=== PATIENT | male | born 1950 | race Caucasian/White ===

== ENCOUNTER 2020-04-27 10:09 | Inpatient (IN) | payer MEDICARE ==
[~2020-04-27] VITALS: Ht 182.9 cm; Wt 99.8 kg
[~2020-04-27 10:09] MED LIST: ALBU2.5V8 INH; AMLO5TAB4 PO; ATOR10TA PO; BLOOD PRESSURE; BRIM5DRO3 EACHEYE; FLUT1DIS IH; FLUT1DIS3 IH; LOSA1TAB25 PO; METH4TAB2 PO; MONT10TA49 PO; TEST200V3 IM; WARF-31 PO
[2020-04-27 11:02] LABS: BASO % 1 % (0-3); EOS % 0 % (0-3); HEMATOCRIT 42.4 % (39.0-53.0); HEMOGLOBIN 14.1 g/dL (13.0-17.5); LYMPH # 0.4 x10^3/uL (1.0-4.8); LYMPH % 11 % (24-48); MEAN CORPUSCULAR HEMOGLOBIN 30 pg (25-35); MEAN CORPUSCULAR HGB CONC 33 g/dL (31-37); MEAN CORPUSCULAR VOLUME 90 fL (79-100); MONO # 0.3 x10^3/uL (0.0-1.1); MONO % 8 % (0-9); NEUT # 3.1 x10^3/uL (1.8-7.7); NEUT % 81 % (31-73); PLATELET COUNT 171 x10^3/uL (140-400); RED CELL DISTRIBUTION WIDTH 15.6 % (11.5-14.5); WHITE BLOOD COUNT 3.9 x10^3/uL (4.0-11.0)
--- NOTE | 2020-04-27 11:09 | RAD ---
EXAM: Chest, single view. HISTORY: Shortness of air. COMPARISON: 06/22/2015 FINDINGS: A frontal view of the chest is obtained. There is diffuse mixed interstitial and alveolar i nfiltrate throughout both lungs. There may be partial consolidation of the left lower lobe. There is elevation of the right hemidiaphragm and interposition of colon superior to the liver, bladder which is a normal variant. There are suspected small pleural effusions. There is enlargement of the cardiac silhouette. There is no pneumothorax. IMPRESSION: 1. Multifocal interstitial and alveolar infiltrate with suspected partial left lower lobe consolidati on. 2. Small bilateral pleural effusions. 3. Chronic cardiac silhouette and elevation of the right hemidiaphragm. Electronically signed by: Mimi Brady MD (04/27/2020 11:07 AM) [id number]
--- NOTE | 2020-04-27 11:13 | PHYS DOC ---
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 Patient was exposed to a [id number] who had COVID-19 infection last week. He went to his doctor today, his oxygen saturation was 70% on room air in the clinic. Therefore he was brought here by his son for evaluation. Review of Systems: Review of Systems: Constitutional: Positive for fever or chills. [] Eyes: Denies change in visual acuity. [] HENT: Denies nasal congestion or sore throat. [] Respiratory: Positive for cough or shortness of breath. [] Cardiovascular: Denies chest pain or edema. [] GI: Denies abdominal pain, nausea, vomiting, bloody stools or diarrhea. [] : Denies dysuria. [] Musculoskeletal: Denies back pain or joint pain. [] Integument: Denies rash. [] Neurologic: Denies headache, focal weakness or sensory changes. [] Endocrine: Denies polyuria or polydipsia. [] Lymphatic: Denies swollen glands. [] Psychiatric: Denies depression or anxiety. [] Heart Score: Risk Factors: Risk Factors: DM, Current or recent (<one month) smoker, HTN, HLP, family history of CAD, obesity. Risk Scores: Score 0 - 3: 2.5% MACE over next 6 weeks - Discharge Home Score 4 - 6: 20.3% MACE over next 6 weeks - Admit for Clinical Observation Score 7 - 10: 72.7% MACE over next 6 weeks - Early Invasive Strategies Allergies: Allergies: Allergies Coded Allergies Type Severity Reaction Last Updated Verified Sulfa (Sulfonamide Antibiotics) Allergy Intermediate 08/15/14 Yes Physical Exam: PE: Constitutional: Well developed, well nourished, no acute distress, non-toxic appearance. [] HENT: Normocephalic, atraumatic, bilateral external ears normal, oropharynx moist, no oral exudates, nose normal. [] Eyes: PERRLA, EOMI, conjunctiva normal, no discharge. [] Neck: Normal range of motion, no tenderness, supple, no stridor. [] Cardiovascular:Heart rate regular rhythm, no murmur [] Lungs & Thorax: Bilateral breath soundsWITH CRACKLES AT LUNG BASES. No respiratory distress. Abdomen: Bowel sounds normal, soft, no tenderness, no masses, no pulsatile masses. [] Skin: Warm, dry, no erythema, no rash. [] Back: No tenderness, no CVA tenderness. [] Extremities: No tenderness, no cyanosis, no clubbing, ROM intact, no edema. [] Neurologic: Alert and oriented X 3, normal motor function, normal sensory function, no focal deficits noted. [] Psychologic: Affect normal, judgement normal, mood normal. [] Current Patient Data: Labs: Laboratory Tests Test 04/27/20 10:47 White Blood Count 3.9 x10^3/uL (4.0-11.0) L Red Blood Count 4.70 x10^6/uL (4.30-5.70) Hemoglobin 14.1 g/dL (13.0-17.5) Hematocrit 42.4 % (39.0-53.0) Mean Corpuscular Volume 90 fL (79-100) Mean Corpuscular Hemoglobin 30 pg (25-35) Mean Corpuscular Hemoglobin Concent 33 g/dL (31-37) Red Cell Distribution Width 15.6 % (11.5-14.5) H Platelet Count 171 x10^3/uL (140-400) Neutrophils (%) (Auto) 81 % (31-73) H Lymphocytes (%) (Auto) 11 % (24-48) L Monocytes (%) (Auto) 8 % (0-9) Eosinophils (%) (Auto) 0 % (0-3) Basophils (%) (Auto) 1 % (0-3) Neutrophils # (Auto) 3.1 x10^3/uL (1.8-7.7) Lymphocytes # (Auto) 0.4 x10^3/uL (1.0-4.8) L Monocytes # (Auto) 0.3 x10^3/uL (0.0-1.1) Eosinophils # (Auto) 0.0 x10^3/uL (0.0-0.7) Basophils # (Auto) 0.0 x10^3/uL (0.0-0.2) Laboratory Tests 04/27/20 10:47 Vital Signs: Vital Signs Date Time Temp Pulse Resp B/P (MAP) Pulse Ox O2 Delivery O2 Flow Rate FiO2 04/27/20 10:38 37 3 NonRebreather Mask 15.0 04/27/20 10:31 98.8 70 106/64 (78) 98.8 EKG: EKG: EKG was done at 1027, heart rate 70 beats per minute, sinus rhythm, no ST segment elevation. Radiology/Procedures: Radiology/Procedures: [facility] [address] [place] [address] IMAGING REPORT Signed PATIENT: NANCY BARTH ACCOUNT: [id number] : 1950 LOCATION: ER AGE: 69 SEX: M EXAM STATUS: REG ER ORD. PHYSICIAN: ANTON ROBLES DO REASON: SOA, PROCEDURE: CHEST AP ONLY EXAM: Chest, single view. HISTORY: Shortness of air. COMPARISON: 06/22/2015 FINDINGS: A frontal view of the chest is obtained. There is diffuse mixed interstitial and alveolar infiltrate throughout both lungs. There may be partial consolidation of the left lower lobe. There is elevation of the right hemidiaphragm and interposition of colon superior to the liver, bladder which is a normal variant. There are suspected small pleural effusions. There is enlargement of the cardiac silhouette. There is no pneumothorax. IMPRESSION: 1. Multifocal interstitial and alveolar infiltrate with suspected partial left lower lobe consolidation. 2. Small bilateral pleural effusions. 3. Chronic cardiac silhouette and elevation of the right hemidiaphragm. Electronically signed by: Mimi Wood MD (04/27/2020 11:07 AM) [id number] DICTATED and SIGNED BY: MIMI WOOD MD DATE: 04/27/20 [id number] Course & Med Decision Making: Course & Med Decision Making Pertinent Labs and Imaging studies reviewed. (See chart for details) Patient is a 69-year-old male who is suspected of COVID-19 infection, he is hypoxic, chest x-ray showed groundglass infiltration. Patient will be admitted to hospital for further evaluation and treatment. Dragon Disclaimer: Dragon Disclaimer: This electronic medical record was generated, in whole or in part, using a voice recognition dictation system. Departure Departure Impression: Primary Impression: Pneumonia due to COVID-19 virus Additional Impression: Respiratory failure Disposition: ADMITTED INPT THIS HOSP Admitting Physician: MARY (Dr. GUEVARA) Condition: IMPROVED Referrals: MIRANDA JANSEN MD (PCP) ANTON ROBLES DO Apr 27, 2020 11:13
[2020-04-27 11:15] LABS: CALCIUM 8.3 mg/dL (8.5-10.1); CREATININE 1.7 mg/dL (0.7-1.3); GFR 40.3; POTASSIUM 4.3 mmol/L (3.5-5.1)
[2020-04-27 11:28] LABS: ALBUMIN 3.3 g/dL (3.4-5.0); ALBUMIN/GLOBULIN RATIO 0.8 (1.0-1.7); MAGNESIUM 2.3 mg/dL (1.8-2.4); TOTAL PROTEIN 7.5 g/dL (6.4-8.2)
--- NOTE | 2020-04-27 11:42 | PDOC1 ---
History and Physical Date of Admission Date of Admission DATE: 04/27/20 TIME: 11:37 Identification/Chief Complaint Chief Complaint Short of breath Source Source: Patient History of Present Illness History of Present Illness Mr Bertrand is a 69yo M w/ PMHX chronic persistent asthma, HTN, esophageal strictures, low testosterone, prior portal vein thrombus who presents to the ED at the insistence of his stepson with c/o difficulty breathing, cough, fever for the last 5 days. Patient was exposed to a [id number] who had COVID-19 infection last week. He went to his doctor today, his oxygen saturation was 70% on room air in the clinic. Therefore he was brought here by his son for evaluation. He has been having difficulty sleeping due to his shortness of breath. O2 saturations 62% on arrival improved with 15L facemask O2.. EKG was done at 1027, heart rate 70 beats per minute, sinus rhythm, no ST segment elevation Chest radiograph with multifocal interstitial and alveolar infiltrate with suspected partial left lower lobe consolidation as well as small bilateral pleural effusions. Labs with WBC 3.9, Hb 14.1, platelets 171, albumin 3.3, trop 0, BNP 1082, Na 138, K 4.3, BUN 49, Cr 1.7, glucose 115. Admitted for further care. Past Medical History Cardiovascular: HTN, Syncope Pulmonary: Asthma Musculoskeletal: low back pain Past Surgical History Past Surgical History: Other Family History Family History: Cancer, Heart Disease, Hypertension, Stroke, Other Social History Smoke: Quit ALCOHOL: none Drugs: None Current Medications Current Medications Current Medications Acetaminophen/ Hydrocodone Bitart (Lortab 5/325) 1 tab 1X ONCE PO ; Start 04/27/20 at 11:45; Stop 04/27/20 at 11:46 Active Scripts Active Reported Medrol (Methylprednisolone) 4 Mg Tab.ds.pk 1 Pkg PO UD Warfarin Sodium 5 Mg Tablet 2 Tab PO DAILY16 Norvasc (Amlodipine Besylate) 5 Mg Tablet 1 Tab PO DAILY Proair Hfa Inhaler (Albuterol Sulfate) 8.5 Gm Hfa.aer.ad 1 Puff INH PRN Q6HRS PRN Advair 250-50 Diskus (Fluticasone/Salmeterol) 1 Each Disk.w.dev 1 Inh IH BID Singulair Tablet (Montelukast Sodium) 10 Mg Tablet 10 Mg PO HS Allergies Allergies: Coded Allergies: Sulfa (Sulfonamide Antibiotics) (Verified Allergy, Intermediate, 08/15/14) ROS General: YES: Fatigue, Malaise; No: Chills, Night Sweats, Appetite, Other PSYCHOLOGICAL ROS: No: Anxiety, Behavioral Disorder, Concentration difficultie, Decreased libido, Depression, Disorientation, Hallucinations, Hostility, Irritablity, Memory difficulties, Mood Swings, Obsessive thoughts, Physical abuse, Sexual abuse, Sleep disturbances, Suicidal ideation, Other Eyes: No Blurry vision, No Decreased vision, No Double vision, No Dry eyes, No Excessive tearing, No Eye Pain, No Itchy Eyes, No Loss of vision, No Photophobia, No Scotomata, No Uses contacts, No Uses glasses, No Other HEENT: No: Heacaches, Visual Changes, Hearing change, Nasal congestion, Nasal discharge, Oral lesions, Sinus pain, Sore Throat, Epistaxis, Sneezing, Snoring, Tinnitus, Vertigo, Vocal changes, Other ALLERGY AND IMMUNOLOGY: No: Hives, Insect Bite Sensitivity, Itchy/Watery Eyes, Nasal Congestion, Post Nasal Drip, Seasonal Allergies, Other Hematological and Lymphatic: No: Bleeding Problems, Blood Clots, Blood Transfusions, Brusing, Night Sweats, Pallor, Swollen Lymph Nodes, Other ENDOCRINE: No: Breast Changes, Galactorrhea, Hair Pattern Changes, Hot Flashes, Malaise/lethargy, Mood Swings, Palpitations, Polydipsia/polyuria, Skin Changes, Temperature Intolerance, Unexpected Weight Changes, Other Breast: No New/Changing Breast Lumps, No Nipple changes, No Nipple discharge, No Other Respiratory: YES: Cough, Shortness of breath, SOB with excertion, Tachypnea, Wheezing; No: Hemoptysis, Orthopnea, Pleuritic Pain, Sputum Changes, Stridor, Other Cardiovascular: No Chest Pain, No Palpitations, No Orthopnea, No Paroxysmal Noc. Dyspnea, No Edema, No Lt Headedness, No Other Gastrointestinal: No Nausea, No Vomiting, No Abdominal Pain, No Diarrhea, No Constipation, No Melena, No Hematochezia, No Other Genitourinary: No Dysuria, No Frequency, No Incontinence, No Hematuria, No Retention, No Discharge, No Urgency, No Pain, No Flank Pain, No Other, No , No , No , No , No , No , No Musculoskeletal: No Gait Disturbance, No Joint Pain, No Joint Stiffness, No Joint Swelling, No Muscle Pain, No Muscular Weakness, No Pain In:, No Swelling In:, No Other Neurological: No Behavorial Changes, No Bowel/Bladder ControlChng, No Confusion, No Dizziness, No Gait Disturbance, No Headaches, No Impaired Coord/balance, No Memory Loss, No Numbness/Tingling, No Seizures, No Speech Problems, No Tremors, No Visual Changes, No Weakness, No Other Skin: No Dry Skin, No Eczema, No Hair Changes, No Lumps, No Mole Changes, No Mottling, No Nail Changes, No Pruritus, No Rash, No Skin Lesion Changes, No Other, No Acne Physical Exam General: Alert, Oriented X3, Cooperative, moderate distress HEENT: Atraumatic, PERRLA, EOMI, Mucous membr. moist/pink Lungs: Other (Bilateral fine crackles, wheezing, prolonged expiratory phase) Heart: S1S2, RRR, no thrills, no rubs, no gallops, no murmurs Abdomen: Normal bowel sounds, Soft, No tenderness, No hepatosplenomegaly, No masses Rectal Exam: not examined Extremities: No clubbing, No cyanosis, No edema, Normal pulses, No tenderness/swelling Skin: No rashes, No breakdown, No significant lesion Neuro: Normal gait, Normal speech, Strength at 5/5 X4 ext, Normal tone, Sensation intact, Cranial nerves 3-12 NL, Reflexes 2+ Psych/Mental Status: Mental status NL, Mood NL Vitals Vitals Vital Signs Date Time Temp Pulse Resp B/P (MAP) Pulse Ox O2 Delivery O2 Flow Rate FiO2 04/27/20 10:38 37 3 NonRebreather Mask 15.0 04/27/20 10:31 98.8 70 106/64 (78) 98.8 Labs Labs Laboratory Tests Test 04/27/20 10:47 White Blood Count 3.9 x10^3/uL (4.0-11.0) Red Blood Count 4.70 x10^6/uL (4.30-5.70) Hemoglobin 14.1 g/dL (13.0-17.5) Hematocrit 42.4 % (39.0-53.0) Mean Corpuscular Volume 90 fL (79-100) Mean Corpuscular Hemoglobin 30 pg (25-35) Mean Corpuscular Hemoglobin Concent 33 g/dL (31-37) Red Cell Distribution Width 15.6 % (11.5-14.5) Platelet Count 171 x10^3/uL (140-400) Neutrophils (%) (Auto) 81 % (31-73) Lymphocytes (%) (Auto) 11 % (24-48) Monocytes (%) (Auto) 8 % (0-9) Eosinophils (%) (Auto) 0 % (0-3) Basophils (%) (Auto) 1 % (0-3) Neutrophils # (Auto) 3.1 x10^3/uL (1.8-7.7) Lymphocytes # (Auto) 0.4 x10^3/uL (1.0-4.8) Monocytes # (Auto) 0.3 x10^3/uL (0.0-1.1) Eosinophils # (Auto) 0.0 x10^3/uL (0.0-0.7) Basophils # (Auto) 0.0 x10^3/uL (0.0-0.2) Sodium Level 138 mmol/L (136-145) Potassium Level 4.3 mmol/L (3.5-5.1) Chloride Level 100 mmol/L (98-107) Carbon Dioxide Level 31 mmol/L (21-32) Anion Gap 7 (6-14) Blood Urea Nitrogen 49 mg/dL (8-26) Creatinine 1.7 mg/dL (0.7-1.3) Estimated GFR (Cockcroft-Gault) 40.3 BUN/Creatinine Ratio 29 (6-20) Glucose Level 115 mg/dL (70-99) Lactic Acid Level 0.8 mmol/L (0.4-2.0) Calcium Level 8.3 mg/dL (8.5-10.1) Magnesium Level 2.3 mg/dL (1.8-2.4) Total Bilirubin 1.0 mg/dL (0.2-1.0) Aspartate Amino Transf (AST/SGOT) 30 U/L (15-37) Alanine Aminotransferase (ALT/SGPT) 27 U/L (16-63) Alkaline Phosphatase 50 U/L (46-116) Troponin I Quantitative < 0.017 ng/mL (0.000-0.055) KV-Nyc-W-Type Natriuretic Peptide 1082 pg/mL (0-124) Total Protein 7.5 g/dL (6.4-8.2) Albumin 3.3 g/dL (3.4-5.0) Albumin/Globulin Ratio 0.8 (1.0-1.7) Laboratory Tests Test 04/27/20 10:47 White Blood Count 3.9 x10^3/uL (4.0-11.0) Red Blood Count 4.70 x10^6/uL (4.30-5.70) Hemoglobin 14.1 g/dL (13.0-17.5) Hematocrit 42.4 % (39.0-53.0) Mean Corpuscular Volume 90 fL (79-100) Mean Corpuscular Hemoglobin 30 pg (25-35) Mean Corpuscular Hemoglobin Concent 33 g/dL (31-37) Red Cell Distribution Width 15.6 % (11.5-14.5) Platelet Count 171 x10^3/uL (140-400) Neutrophils (%) (Auto) 81 % (31-73) Lymphocytes (%) (Auto) 11 % (24-48) Monocytes (%) (Auto) 8 % (0-9) Eosinophils (%) (Auto) 0 % (0-3) Basophils (%) (Auto) 1 % (0-3) Neutrophils # (Auto) 3.1 x10^3/uL (1.8-7.7) Lymphocytes # (Auto) 0.4 x10^3/uL (1.0-4.8) Monocytes # (Auto) 0.3 x10^3/uL (0.0-1.1) Eosinophils # (Auto) 0.0 x10^3/uL (0.0-0.7) Basophils # (Auto) 0.0 x10^3/uL (0.0-0.2) Sodium Level 138 mmol/L (136-145) Potassium Level 4.3 mmol/L (3.5-5.1) Chloride Level 100 mmol/L (98-107) Carbon Dioxide Level 31 mmol/L (21-32) Anion Gap 7 (6-14) Blood Urea Nitrogen 49 mg/dL (8-26) Creatinine 1.7 mg/dL (0.7-1.3) Estimated GFR (Cockcroft-Gault) 40.3 BUN/Creatinine Ratio 29 (6-20) Glucose Level 115 mg/dL (70-99) Lactic Acid Level 0.8 mmol/L (0.4-2.0) Calcium Level 8.3 mg/dL (8.5-10.1) Magnesium Level 2.3 mg/dL (1.8-2.4) Total Bilirubin 1.0 mg/dL (0.2-1.0) Aspartate Amino Transf (AST/SGOT) 30 U/L (15-37) Alanine Aminotransferase (ALT/SGPT) 27 U/L (16-63) Alkaline Phosphatase 50 U/L (46-116) Troponin I Quantitative < 0.017 ng/mL (0.000-0.055) YX-Tee-A-Type Natriuretic Peptide 1082 pg/mL (0-124) Total Protein 7.5 g/dL (6.4-8.2) Albumin 3.3 g/dL (3.4-5.0) Albumin/Globulin Ratio 0.8 (1.0-1.7) Images Images Chest radiograph: A frontal view of the chest is obtained. There is diffuse mixed interstitial and alveolar infiltrate throughout both lungs. There may be partial consolidation of the left lower lobe. There is elevation of the right hemidiaphragm and interposition of colon superior to the liver, bladder which is a normal variant. There are suspected small pleural effusions. There is enlargement of the cardiac silhouette. There is no pneumothorax. IMPRESSION: 1. Multifocal interstitial and alveolar infiltrate with suspected partial left lower lobe consolidation. 2. Small bilateral pleural effusions. 3. Chronic cardiac silhouette and elevation of the right hemidiaphragm. VTE Prophylaxis Ordered VTE Prophylaxis Devices: Yes VTE Pharmacological Prophylaxi: Yes Assessment/Plan Assessment/Plan A/P: Acute respiratory failure with hypoxia -likely COVID-19 related given recent exposure and O2 needs. Also with left lower lobe pneumonia likely gram- negative. Pneumonia - Multifocal interstitial and alveolar infiltrate with suspected partial left lower lobe consolidation. Will treat as gram negative Small bilateral pleural effusions - will monitor Hypotension - likely related to prolonged hypoxemia, sepsis from pneumonia, covid 19, will fluid challenge. HTN - hold amlodipine Asthma - moderate persistent by history, cont singulair, will order inhalers from pharmacy Obesity - counseled on weight management DOROTHEA - likely from vasomotor nephropathy, will hydrate, monitor renal function Sepsis - with leukopenia, RR elevated, will cont antibiotics and fluids FEN - General diet PPX - lovenox FULL CODE Dispo - inpatient for above Justifications for Admission Other Justification LIDIA GUEVARA MD Apr 27, 2020 11:42
[2020-04-27] MEDS ORDERED: HYDROcodone/APAP 5/325MG 1 TAB TABLET PO ONE (11:45)
[2020-04-27] MEDS ORDERED: methylPREDNISolone SOD SUCC PF 125 MG/2 ML VIAL. IV ONE (12:00)
[2020-04-27] MEDS ORDERED: AZITHRMYCN 500MG IVPB FOR OMNI 250 ML IV ONE (12:15)
[2020-04-27] MEDS ORDERED: cefTRIAXone IV Push 1 GM VIAL. IVP ONE (12:15)
[2020-04-27 13:27] LABS: BILIRUBIN,URINE SMALL (NEG); CLARITY,URINE CLEAR; COLOR,URINE AMBER; NITRITE,URINE NEGATIVE (NEG); PH,URINE 5.5 (<5.0-8.0); PROTEIN,URINE 30 mg/dL (NEG-TRACE)
[2020-04-27 13:36] LABS: AMORPHOUS SEDIMENT,UR PRESENT /HPF; BACTERIA,URINE 0 /HPF (0-FEW); GRANULAR CASTS,URINE FEW /HPF; HYALINE CASTS, URINE MANY /HPF; RBC,URINE 0 /HPF (0-2)
[2020-04-27] MEDS ORDERED: IV NORMAL SALINE 1000ML BAG 1,000 ML IV ONE (14:15)
[2020-04-27] MEDS ORDERED: DEXTROSE 50% 25 GM / 50ML DISP.SYRIN. IV PRN (16:30)
[2020-04-27] MEDS: INSULIN LISPRO 300 UNITS/3 ML VIAL. SQ SCH (17:00)
--- NOTE | 2020-04-27 17:26 | PDOC ---
PULMONARY PROGRESS NOTES DATE: 04/27/20 TIME: 17:24 Vitals Vital Signs Date Time Temp Pulse Resp B/P (MAP) Pulse Ox O2 Delivery O2 Flow Rate FiO2 04/27/20 15:48 Non-Rebreather 15.0 04/27/20 14:16 22 90 04/27/20 13:29 59 88/49 (62) 04/27/20 10:31 98.8 98.8 General: Alert, Oriented X4 Lungs: Clear Cardiovascular: S1 Abdomen: Soft Extremities: No Edema Labs Laboratory Tests Test 04/27/20 10:47 04/27/20 12:46 White Blood Count 3.9 x10^3/uL (4.0-11.0) Red Blood Count 4.70 x10^6/uL (4.30-5.70) Hemoglobin 14.1 g/dL (13.0-17.5) Hematocrit 42.4 % (39.0-53.0) Mean Corpuscular Volume 90 fL (79-100) Mean Corpuscular Hemoglobin 30 pg (25-35) Mean Corpuscular Hemoglobin Concent 33 g/dL (31-37) Red Cell Distribution Width 15.6 % (11.5-14.5) Platelet Count 171 x10^3/uL (140-400) Neutrophils (%) (Auto) 81 % (31-73) Lymphocytes (%) (Auto) 11 % (24-48) Monocytes (%) (Auto) 8 % (0-9) Eosinophils (%) (Auto) 0 % (0-3) Basophils (%) (Auto) 1 % (0-3) Neutrophils # (Auto) 3.1 x10^3/uL (1.8-7.7) Lymphocytes # (Auto) 0.4 x10^3/uL (1.0-4.8) Monocytes # (Auto) 0.3 x10^3/uL (0.0-1.1) Eosinophils # (Auto) 0.0 x10^3/uL (0.0-0.7) Basophils # (Auto) 0.0 x10^3/uL (0.0-0.2) Prothrombin Time 13.0 SEC (11.7-14.0) Prothromb Time International Ratio 1.0 (0.8-1.1) Sodium Level 138 mmol/L (136-145) Potassium Level 4.3 mmol/L (3.5-5.1) Chloride Level 100 mmol/L (98-107) Carbon Dioxide Level 31 mmol/L (21-32) Anion Gap 7 (6-14) Blood Urea Nitrogen 49 mg/dL (8-26) Creatinine 1.7 mg/dL (0.7-1.3) Estimated GFR (Cockcroft-Gault) 40.3 BUN/Creatinine Ratio 29 (6-20) Glucose Level 115 mg/dL (70-99) Lactic Acid Level 0.8 mmol/L (0.4-2.0) Calcium Level 8.3 mg/dL (8.5-10.1) Magnesium Level 2.3 mg/dL (1.8-2.4) Total Bilirubin 1.0 mg/dL (0.2-1.0) Aspartate Amino Transf (AST/SGOT) 30 U/L (15-37) Alanine Aminotransferase (ALT/SGPT) 27 U/L (16-63) Alkaline Phosphatase 50 U/L (46-116) Troponin I Quantitative < 0.017 ng/mL (0.000-0.055) JO-Fwp-D-Type Natriuretic Peptide 1082 pg/mL (0-124) Total Protein 7.5 g/dL (6.4-8.2) Albumin 3.3 g/dL (3.4-5.0) Albumin/Globulin Ratio 0.8 (1.0-1.7) Urine Collection Type Unknown Urine Color Jaky Urine Clarity Clear Urine pH 5.5 (<5.0-8.0) Urine Specific Fortine 1.020 (1.000-1.030) Urine Protein 30 mg/dL (NEG-TRACE) Urine Glucose (UA) Negative mg/dL (NEG) Urine Ketones (Stick) Negative mg/dL (NEG) Urine Blood Negative (NEG) Urine Nitrite Negative (NEG) Urine Bilirubin Small (NEG) Urine Urobilinogen Dipstick 1.0 mg/dL (0.2 mg/dL) Urine Leukocyte Esterase Negative (NEG) Urine RBC 0 /HPF (0-2) Urine WBC 1-4 /HPF (0-4) Urine Transitional Epithelial Cells Occ /LPF Urine Amorphous Sediment Present /HPF Urine Bacteria 0 /HPF (0-FEW) Urine Hyaline Casts Many /HPF Urine Granular Casts Few /HPF Urine Mucus Marked /LPF Laboratory Tests Test 04/27/20 10:47 04/27/20 12:46 White Blood Count 3.9 x10^3/uL (4.0-11.0) Red Blood Count 4.70 x10^6/uL (4.30-5.70) Hemoglobin 14.1 g/dL (13.0-17.5) Hematocrit 42.4 % (39.0-53.0) Mean Corpuscular Volume 90 fL (79-100) Mean Corpuscular Hemoglobin 30 pg (25-35) Mean Corpuscular Hemoglobin Concent 33 g/dL (31-37) Red Cell Distribution Width 15.6 % (11.5-14.5) Platelet Count 171 x10^3/uL (140-400) Neutrophils (%) (Auto) 81 % (31-73) Lymphocytes (%) (Auto) 11 % (24-48) Monocytes (%) (Auto) 8 % (0-9) Eosinophils (%) (Auto) 0 % (0-3) Basophils (%) (Auto) 1 % (0-3) Neutrophils # (Auto) 3.1 x10^3/uL (1.8-7.7) Lymphocytes # (Auto) 0.4 x10^3/uL (1.0-4.8) Monocytes # (Auto) 0.3 x10^3/uL (0.0-1.1) Eosinophils # (Auto) 0.0 x10^3/uL (0.0-0.7) Basophils # (Auto) 0.0 x10^3/uL (0.0-0.2) Prothrombin Time 13.0 SEC (11.7-14.0) Prothromb Time International Ratio 1.0 (0.8-1.1) Sodium Level 138 mmol/L (136-145) Potassium Level 4.3 mmol/L (3.5-5.1) Chloride Level 100 mmol/L (98-107) Carbon Dioxide Level 31 mmol/L (21-32) Anion Gap 7 (6-14) Blood Urea Nitrogen 49 mg/dL (8-26) Creatinine 1.7 mg/dL (0.7-1.3) Estimated GFR (Cockcroft-Gault) 40.3 BUN/Creatinine Ratio 29 (6-20) Glucose Level 115 mg/dL (70-99) Lactic Acid Level 0.8 mmol/L (0.4-2.0) Calcium Level 8.3 mg/dL (8.5-10.1) Magnesium Level 2.3 mg/dL (1.8-2.4) Total Bilirubin 1.0 mg/dL (0.2-1.0) Aspartate Amino Transf (AST/SGOT) 30 U/L (15-37) Alanine Aminotransferase (ALT/SGPT) 27 U/L (16-63) Alkaline Phosphatase 50 U/L (46-116) Troponin I Quantitative < 0.017 ng/mL (0.000-0.055) WU-Nbk-U-Type Natriuretic Peptide 1082 pg/mL (0-124) Total Protein 7.5 g/dL (6.4-8.2) Albumin 3.3 g/dL (3.4-5.0) Albumin/Globulin Ratio 0.8 (1.0-1.7) Urine Collection Type Unknown Urine Color Jaky Urine Clarity Clear Urine pH 5.5 (<5.0-8.0) Urine Specific Fortine 1.020 (1.000-1.030) Urine Protein 30 mg/dL (NEG-TRACE) Urine Glucose (UA) Negative mg/dL (NEG) Urine Ketones (Stick) Negative mg/dL (NEG) Urine Blood Negative (NEG) Urine Nitrite Negative (NEG) Urine Bilirubin Small (NEG) Urine Urobilinogen Dipstick 1.0 mg/dL (0.2 mg/dL) Urine Leukocyte Esterase Negative (NEG) Urine RBC 0 /HPF (0-2) Urine WBC 1-4 /HPF (0-4) Urine Transitional Epithelial Cells Occ /LPF Urine Amorphous Sediment Present /HPF Urine Bacteria 0 /HPF (0-FEW) Urine Hyaline Casts Many /HPF Urine Granular Casts Few /HPF Urine Mucus Marked /LPF Medications Active Scripts Medications Dose Route/Sig Max Daily Dose Days Date Category Medrol (Methylprednisolone) 4 Mg Tab.ds.pk 1 Pkg PO UD 06/28/15 Reported Norvasc (Amlodipine Besylate) 5 Mg Tablet 1 Tab PO DAILY 06/22/15 Reported Proair Hfa Inhaler (Albuterol Sulfate) 8.5 Gm Hfa.aer.ad 1 Puff INH PRN Q6HRS PRN 06/22/15 Reported Advair 250-50 Diskus (Fluticasone/Salmeterol) 1 Each Disk.w.dev 1 Inh IH BID 06/22/15 Reported Singulair Tablet (Montelukast Sodium) 10 Mg Tablet 10 Mg PO HS 01/15/14 Reported Impression . Full note dictated d/w Dr Nava ACUTE RESP FAILURE POSSIBLE COVID, BACTERIAL PNEUMONIA RULE OUT CHF CHECK ECHO ONCE CLEARED NOT INFECTIOUS d/w pharmacy will initiate Remdesivir see orders ASA LE MD Apr 27, 2020 17:26
[2020-04-27] MEDS ORDERED: REMDESIVIR LOAD in IV NORMAL SALINE 250ML TV IV ONE (18:00)
--- NOTE | 2020-04-27 18:02 | NUR ---
Report given to Jazlyn SUAREZ
[2020-04-27] MEDS: ENOXAPARIN 40 MG/0.4 ML SYRINGE. SQ SCH (18:06)
[2020-04-27] MEDS: THIAMINE 100 MG TABLET. PO SCH (18:06)
[2020-04-27] MEDS: ZINC SULFATE 220 MG CAPSULE. PO SCH (18:06)
[2020-04-27] MEDS: AMINO AC 3%/ELECTROLYTE/GLYCER 1,000 ML IV SCH (18:32)
[2020-04-27 19:50] VITALS: BP 113/59
[2020-04-27] MEDS: MONTELUKAST SODIUM 10 MG TABLET. PO SCH (22:11)
[2020-04-27] MEDS: ZOLPIDEM 5 MG TABLET. PO PRN (22:11)
[2020-04-27] MEDS: NAPROXEN 500 MG TABLET PO PRN (22:11)
[2020-04-27 23:20] VITALS: BP 104/58
--- NOTE | 2020-04-27 23:45 | CONS ---
DATE OF CONSULTATION: 04/27/2020 ATTENDING PHYSICIAN: Hector Jones MD. REASON FOR CONSULTATION: The patient is seen in pulmonary consultation at the request of Dr. Jones for acute hypoxemic respiratory failure, abnormal chest x-ray, possible COVID-19. HISTORY OF PRESENT ILLNESS: The patient is a 69-year-old that normally does not wear oxygen at home. He has mild asthma, uses p.r.n. albuterol, presented with increasing shortness of breath. The patient had exposure to ____ approximately a week ago. He went to his primary care doctor. They found saturations of 70%, and was referred to the Emergency Department. He is currently on 100% nonrebreather. He is awake, alert, following commands. I saw him in the Emergency Room holding area. His white count was 3.9, hemoglobin and hematocrit were noted. He had a lymphopenia. INR was 1.0. Electrolytes were noted. BUN and creatinine were elevated. BNP was elevated. I reviewed his chest x-ray, which revealed multifocal interstitial and alveolar type of infiltrates with left lower lobe consolidation. He had bilateral effusion. PAST MEDICAL HISTORY: Otherwise remarkable for mild asthma, hypertension, syncope, previous history of right hemidiaphragm herniation, lower back pain, prior history of portal vein thrombosis, esophageal stricture. No history of coronary artery disease, heart failure, DVT or pulmonary embolism. PAST SURGICAL HISTORY: No recent surgery. FAMILY HISTORY: Remarkable for heart disease, hypertension, stroke and cancer. SOCIAL HISTORY: He quit tobacco. He is currently not smoking. ALLERGIES: LISTED TO SULFA. REVIEW OF SYSTEMS: As indicated above, otherwise, a 10-point system was reviewed and negative. PHYSICAL EXAMINATION: GENERAL: The patient was in the Emergency Department holding area nonrebreather. He was awake, alert, following commands. He was able to complete full sentences. He did not appear to be septic. NECK: Jugular venous distention was not elevated. LUNGS: He had scattered crackles, fine. No wheezes. CARDIOVASCULAR: Regular rate and rhythm with S1, S2, no S3. ABDOMEN: Soft, nontender, nondistended. EXTREMITIES: No clubbing, cyanosis or edema. LABORATORY DATA AND CHEST X-RAY: As indicated above. IMPRESSION: 1. Acute hypoxemic respiratory failure. 2. Abnormal x-ray compatible with pneumonia, possible COVID-19. 3. Possible COVID-19 viral pneumonia. 4. COVID-19 exposure. 5. Hypotension, possible sepsis. 6. Asthma, mild in nature. The patient uses p.r.n. albuterol and Singulair. 7. Obesity. 8. Acute kidney injury. PLAN: 1. Case discussed with Dr. Jones, we will initiate remdesivir. 2. Steroids. 3. Empiric antibiotics. 4. Oxygen supplementation. 5. Fluid challenges. 6. Continue bronchodilators. 7. Singulair. 8. Zinc sulfate. 9. Thiamine. 10. DVT prophylaxis. I do appreciate the privilege in sharing in the patient's care. Total cumulative critical care time from 4:45-5:[address] ASA LE MD DR: NELLY/jeff JOB#: [id number] / [id number]
[2020-04-28] VITALS (21 sets, daily range): BP systolic 98–140; BP diastolic 56–79
[2020-04-28 01:17] LABS: HEMOGLOBIN A1C 6.1 % (4.8-5.6)
--- NOTE | 2020-04-28 02:34 | NUR ---
Pt has been placed on bipap at this time, settings 24/10 with rate 20. Pt with difficulty breathing noted during the noc. Pt at times would remove nonrebreather and O2 saturation with drop to 70-80%. After talking with pt and informed of keeping nonrebreather on pt O2 saturation would increase to 91% however saturation would not stay up. Pt O2 saturation stayed 85% on nonrebreather and pt using accessory muscles to breathe. Since placing pt on bipap O2 saturation has increased to 94-95%. Will continue to monitor.
[2020-04-28 03:35] LABS: BASE EXCESS ABG -1 mmol/L (-3-3); HCO3 ABG 30 mmol/L (21-28); PO2 ABG 72 mmHg (65-108); SAT O2 ABG 91 % (92-99)
[2020-04-28 03:40] LABS: FIO2 ABG 100; PCO2 ABG 88 mmHg (35-46)
[2020-04-28 06:15] LABS: BASE EXCESS ABG 1 mmol/L (-3-3); HCO3 ABG 32 mmol/L (21-28); PO2 ABG 99 mmHg (65-108); SAT O2 ABG 96 % (92-99)
[2020-04-28 06:17] LABS: PCO2 ABG 86 mmHg (35-46)
[2020-04-28 06:18] LABS: FIO2 ABG 100
--- NOTE | 2020-04-28 07:40 | NUR ---
Spoke to Sabas; son this am and informed of pt current status and needing to be transferred to ICU due to respiratory status. Son states do what you need to do at this time. Son informed of possible intubation due to lab results and son verbalize understanding. Informed son that someone will call to give update of pt's status. No further concerns at this time. Day nurse has been informed.
[2020-04-28] MEDS: INSULIN LISPRO 300 UNITS/3 ML VIAL. SQ SCH ×3 (08:00→17:00)
--- NOTE | 2020-04-28 08:00 | NUR ---
Pt transported to ICU room 107. Report called to DANIELA Hilliard via telephone. Pt transported via bed on Bipap with assistance from RT. Pt green belonging bag with clothing and cellphone transported with patient.
--- NOTE | 2020-04-28 09:19 | PDOC ---
PULMONARY PROGRESS NOTES DATE: 04/28/20 TIME: 09:12 Subjective transfer to ICU with resp distress on BIPAP awake Vitals Vital Signs Date Time Temp Pulse Resp B/P (MAP) Pulse Ox O2 Delivery O2 Flow Rate FiO2 04/28/20 08:17 91 BiPAP/CPAP 04/28/20 03:40 96.2 76 30 102/59 (73) 96.2 04/28/20 00:00 15.0 General: Alert, Mild Distress Lungs: Clear Cardiovascular: S1 Abdomen: Soft Extremities: Other (trace edema) Labs Laboratory Tests Test 04/27/20 10:47 04/27/20 12:46 04/27/20 17:47 04/27/20 21:19 White Blood Count 3.9 x10^3/uL (4.0-11.0) Red Blood Count 4.70 x10^6/uL (4.30-5.70) Hemoglobin 14.1 g/dL (13.0-17.5) Hematocrit 42.4 % (39.0-53.0) Mean Corpuscular Volume 90 fL (79-100) Mean Corpuscular Hemoglobin 30 pg (25-35) Mean Corpuscular Hemoglobin Concent 33 g/dL (31-37) Red Cell Distribution Width 15.6 % (11.5-14.5) Platelet Count 171 x10^3/uL (140-400) Neutrophils (%) (Auto) 81 % (31-73) Lymphocytes (%) (Auto) 11 % (24-48) Monocytes (%) (Auto) 8 % (0-9) Eosinophils (%) (Auto) 0 % (0-3) Basophils (%) (Auto) 1 % (0-3) Neutrophils # (Auto) 3.1 x10^3/uL (1.8-7.7) Lymphocytes # (Auto) 0.4 x10^3/uL (1.0-4.8) Monocytes # (Auto) 0.3 x10^3/uL (0.0-1.1) Eosinophils # (Auto) 0.0 x10^3/uL (0.0-0.7) Basophils # (Auto) 0.0 x10^3/uL (0.0-0.2) Prothrombin Time 13.0 SEC (11.7-14.0) Prothromb Time International Ratio 1.0 (0.8-1.1) Sodium Level 138 mmol/L (136-145) Potassium Level 4.3 mmol/L (3.5-5.1) Chloride Level 100 mmol/L (98-107) Carbon Dioxide Level 31 mmol/L (21-32) Anion Gap 7 (6-14) Blood Urea Nitrogen 49 mg/dL (8-26) Creatinine 1.7 mg/dL (0.7-1.3) Estimated GFR (Cockcroft-Gault) 40.3 BUN/Creatinine Ratio 29 (6-20) Glucose Level 115 mg/dL (70-99) Hemoglobin A1c 6.1 % (4.8-5.6) Lactic Acid Level 0.8 mmol/L (0.4-2.0) Calcium Level 8.3 mg/dL (8.5-10.1) Magnesium Level 2.3 mg/dL (1.8-2.4) Total Bilirubin 1.0 mg/dL (0.2-1.0) Aspartate Amino Transf (AST/SGOT) 30 U/L (15-37) Alanine Aminotransferase (ALT/SGPT) 27 U/L (16-63) Alkaline Phosphatase 50 U/L (46-116) Troponin I Quantitative < 0.017 ng/mL (0.000-0.055) LF-Qvw-K-Type Natriuretic Peptide 1082 pg/mL (0-124) Total Protein 7.5 g/dL (6.4-8.2) Albumin 3.3 g/dL (3.4-5.0) Albumin/Globulin Ratio 0.8 (1.0-1.7) Urine Collection Type Unknown Urine Color Jaky Urine Clarity Clear Urine pH 5.5 (<5.0-8.0) Urine Specific [place] 1.020 (1.000-1.030) Urine Protein 30 mg/dL (NEG-TRACE) Urine Glucose (UA) Negative mg/dL (NEG) Urine Ketones (Stick) Negative mg/dL (NEG) Urine Blood Negative (NEG) Urine Nitrite Negative (NEG) Urine Bilirubin Small (NEG) Urine Urobilinogen Dipstick 1.0 mg/dL (0.2 mg/dL) Urine Leukocyte Esterase Negative (NEG) Urine RBC 0 /HPF (0-2) Urine WBC 1-4 /HPF (0-4) Urine Transitional Epithelial Cells Occ /LPF Urine Amorphous Sediment Present /HPF Urine Bacteria 0 /HPF (0-FEW) Urine Hyaline Casts Many /HPF Urine Granular Casts Few /HPF Urine Mucus Marked /LPF Glucose (Fingerstick) 122 mg/dL (70-99) 172 mg/dL (70-99) Test 04/28/20 03:33 04/28/20 06:12 O2 Saturation 91 % (92-99) 96 % (92-99) Arterial Blood pH 7.16 (7.35-7.45) 7.19 (7.35-7.45) Arterial Blood pCO2 at Patient Temp 88 mmHg (35-46) 86 mmHg (35-46) Arterial Blood pO2 at Patient Temp 72 mmHg (65-108) 99 mmHg (65-108) Arterial Blood HCO3 30 mmol/L (21-28) 32 mmol/L (21-28) Arterial Blood Base Excess -1 mmol/L (-3-3) 1 mmol/L (-3-3) FiO2 100 100 Laboratory Tests Test 04/27/20 10:47 04/27/20 12:46 04/27/20 17:47 04/27/20 21:19 White Blood Count 3.9 x10^3/uL (4.0-11.0) Red Blood Count 4.70 x10^6/uL (4.30-5.70) Hemoglobin 14.1 g/dL (13.0-17.5) Hematocrit 42.4 % (39.0-53.0) Mean Corpuscular Volume 90 fL (79-100) Mean Corpuscular Hemoglobin 30 pg (25-35) Mean Corpuscular Hemoglobin Concent 33 g/dL (31-37) Red Cell Distribution Width 15.6 % (11.5-14.5) Platelet Count 171 x10^3/uL (140-400) Neutrophils (%) (Auto) 81 % (31-73) Lymphocytes (%) (Auto) 11 % (24-48) Monocytes (%) (Auto) 8 % (0-9) Eosinophils (%) (Auto) 0 % (0-3) Basophils (%) (Auto) 1 % (0-3) Neutrophils # (Auto) 3.1 x10^3/uL (1.8-7.7) Lymphocytes # (Auto) 0.4 x10^3/uL (1.0-4.8) Monocytes # (Auto) 0.3 x10^3/uL (0.0-1.1) Eosinophils # (Auto) 0.0 x10^3/uL (0.0-0.7) Basophils # (Auto) 0.0 x10^3/uL (0.0-0.2) Prothrombin Time 13.0 SEC (11.7-14.0) Prothromb Time International Ratio 1.0 (0.8-1.1) Sodium Level 138 mmol/L (136-145) Potassium Level 4.3 mmol/L (3.5-5.1) Chloride Level 100 mmol/L (98-107) Carbon Dioxide Level 31 mmol/L (21-32) Anion Gap 7 (6-14) Blood Urea Nitrogen 49 mg/dL (8-26) Creatinine 1.7 mg/dL (0.7-1.3) Estimated GFR (Cockcroft-Gault) 40.3 BUN/Creatinine Ratio 29 (6-20) Glucose Level 115 mg/dL (70-99) Hemoglobin A1c 6.1 % (4.8-5.6) Lactic Acid Level 0.8 mmol/L (0.4-2.0) Calcium Level 8.3 mg/dL (8.5-10.1) Magnesium Level 2.3 mg/dL (1.8-2.4) Total Bilirubin 1.0 mg/dL (0.2-1.0) Aspartate Amino Transf (AST/SGOT) 30 U/L (15-37) Alanine Aminotransferase (ALT/SGPT) 27 U/L (16-63) Alkaline Phosphatase 50 U/L (46-116) Troponin I Quantitative < 0.017 ng/mL (0.000-0.055) UO-Jwy-V-Type Natriuretic Peptide 1082 pg/mL (0-124) Total Protein 7.5 g/dL (6.4-8.2) Albumin 3.3 g/dL (3.4-5.0) Albumin/Globulin Ratio 0.8 (1.0-1.7) Urine Collection Type Unknown Urine Color Jaky Urine Clarity Clear Urine pH 5.5 (<5.0-8.0) Urine Specific [place] 1.020 (1.000-1.030) Urine Protein 30 mg/dL (NEG-TRACE) Urine Glucose (UA) Negative mg/dL (NEG) Urine Ketones (Stick) Negative mg/dL (NEG) Urine Blood Negative (NEG) Urine Nitrite Negative (NEG) Urine Bilirubin Small (NEG) Urine Urobilinogen Dipstick 1.0 mg/dL (0.2 mg/dL) Urine Leukocyte Esterase Negative (NEG) Urine RBC 0 /HPF (0-2) Urine WBC 1-4 /HPF (0-4) Urine Transitional Epithelial Cells Occ /LPF Urine Amorphous Sediment Present /HPF Urine Bacteria 0 /HPF (0-FEW) Urine Hyaline Casts Many /HPF Urine Granular Casts Few /HPF Urine Mucus Marked /LPF Glucose (Fingerstick) 122 mg/dL (70-99) 172 mg/dL (70-99) Test 04/28/20 03:33 04/28/20 06:12 O2 Saturation 91 % (92-99) 96 % (92-99) Arterial Blood pH 7.16 (7.35-7.45) 7.19 (7.35-7.45) Arterial Blood pCO2 at Patient Temp 88 mmHg (35-46) 86 mmHg (35-46) Arterial Blood pO2 at Patient Temp 72 mmHg (65-108) 99 mmHg (65-108) Arterial Blood HCO3 30 mmol/L (21-28) 32 mmol/L (21-28) Arterial Blood Base Excess -1 mmol/L (-3-3) 1 mmol/L (-3-3) FiO2 100 100 Medications Active Scripts Medications Dose Route/Sig Max Daily Dose Days Date Category Medrol (Methylprednisolone) 4 Mg Tab.ds.pk 1 Pkg PO UD 06/28/15 Reported Norvasc (Amlodipine Besylate) 5 Mg Tablet 1 Tab PO DAILY 06/22/15 Reported Proair Hfa Inhaler (Albuterol Sulfate) 8.5 Gm Hfa.aer.ad 1 Puff INH PRN Q6HRS PRN 06/22/15 Reported Advair 250-50 Diskus (Fluticasone/Salmeterol) 1 Each Disk.w.dev 1 Inh IH BID 06/22/15 Reported Singulair Tablet (Montelukast Sodium) 10 Mg Tablet 10 Mg PO HS 01/15/14 Reported Impression . 1. Acute on chronic hypercapnic/ hypoxemic respiratory failure. 2. Abnormal x-ray compatible with pneumonia, possible COVID-19. 3. Possible COVID-19 viral pneumonia. 4. COVID-19 exposure. 5. Hypotension, possible sepsis. 6. Asthma, mild in nature. The patient uses p.r.n. albuterol and Singulair. 7. Obesity. 8. Acute kidney injury. Plan . 1. BIPAP, ,increase rate, reduce FIO2, f/u ABG , does not need intubation at present 2. Steroids./Remdesvir 3. Empiric antibiotics. 4. Oxygen supplementation. 5. Fluid challenges. 6. Continue bronchodilators. 7. Singulair. 8. Zinc sulfate. 9. Thiamine. 10. DVT prophylaxis. d/w RN/RT. cct 30 min ANGELY LOWRY MD Apr 28, 2020 09:19
[2020-04-28 09:31] LABS: BASE EXCESS COOX 1 mmol/L (-3-3); HCO3 COOX 31 mmol/L (21-28); METHEMOGLOBIN 0.4 % (0.0-1.9); OXYHEMOGLOBIN 92.2 %; PO2 COOX 74 mmHg (65-108); SAT O2 COOX 93 % (92-99)
[2020-04-28 09:38] LABS: PCO2 COOX 75 mmHg (35-46)
--- NOTE | 2020-04-28 10:57 | NUR ---
Patient arrived on unit at 0800, alert and oriented x4 but slightly forgetful. Patient tolerating BiPAP at 70%, but was turned down to 65% and the respiratory rate turned up to [address] Burger at bedside. Patient in no distress and denied pain. Placed navarro catheter. Repeat ABG drawn at 0930, Dr. Burger turned FIO2 down to 60% and redraw an ABG later in the day. Spoke with patient's son regarding update on condition.
[2020-04-28 11:20] LABS: BASO % 0 % (0-3); EOS % 0 % (0-3); HEMOGLOBIN 14.2 g/dL (13.0-17.5); LYMPH # 0.7 x10^3/uL (1.0-4.8); LYMPH % 14 % (24-48); MEAN CORPUSCULAR HEMOGLOBIN 30 pg (25-35); MEAN CORPUSCULAR HGB CONC 33 g/dL (31-37); MEAN CORPUSCULAR VOLUME 92 fL (79-100); MONO # 0.4 x10^3/uL (0.0-1.1); MONO % 8 % (0-9); NEUT # 3.7 x10^3/uL (1.8-7.7); NEUT % 77 % (31-73); PLATELET COUNT 156 x10^3/uL (140-400); RED BLOOD COUNT 4.69 x10^6/uL (4.30-5.70); RED CELL DISTRIBUTION WIDTH 15.8 % (11.5-14.5); WHITE BLOOD COUNT 4.8 x10^3/uL (4.0-11.0)
[2020-04-28] MEDS: DEXAMETHASONE 4 MG TABLET PO SCH (11:33)
[2020-04-28] MEDS: AMINO AC 3%/ELECTROLYTE/GLYCER 1,000 ML IV SCH ×2 (11:33→23:55)
[2020-04-28] MEDS: ENOXAPARIN 40 MG/0.4 ML SYRINGE. SQ SCH ×2 (11:33→21:23)
[2020-04-28] MEDS: THIAMINE 100 MG TABLET. PO SCH (11:33)
[2020-04-28] MEDS: ZINC SULFATE 220 MG CAPSULE. PO SCH (11:33)
[2020-04-28] MEDS: MORPHINE SULFATE 4 MG/ML VIAL. IV PRN ×2 (11:34→23:54)
[2020-04-28 11:35] LABS: ALBUMIN 2.8 g/dL (3.4-5.0); ALBUMIN/GLOBULIN RATIO 0.7 (1.0-1.7); CALCIUM 7.8 mg/dL (8.5-10.1); CREATININE 1.1 mg/dL (0.7-1.3); GFR 66.6; POTASSIUM 5.1 mmol/L (3.5-5.1); TOTAL BILIRUBIN 0.6 mg/dL (0.2-1.0); TOTAL PROTEIN 6.8 g/dL (6.4-8.2)
[2020-04-28] MEDS: AZITHROMYCIN 250 MG in IV NORMAL SALINE 250ML 250 ML IV SCH (12:07)
[2020-04-28] MEDS: cefTRIAXone IV Push 1 GM VIAL. IVP SCH (13:13)
--- NOTE | 2020-04-28 13:48 | PDOC ---
[facility] PROGRESS NOTE Date of Service DOS: DATE: 04/28/20 TIME: 13:46 Chief Complaint Chief Complaint A/P: Acute respiratory failure with hypoxia -likely COVID-19 related given recent exposure and O2 needs. Also with left lower lobe pneumonia likely gram- negative. Acute respiratory failure with hypercapnia - likely also COVID 19 related or COPD from his chronic asthma with retention Pneumonia - Multifocal interstitial and alveolar infiltrate with suspected partial left lower lobe consolidation. Will treat as gram negative Small bilateral pleural effusions - will monitor Hypotension - likely related to prolonged hypoxemia, sepsis from pneumonia, covid 19, will fluid challenge. HTN - hold amlodipine Asthma - moderate persistent by history, cont singulair, will order inhalers from pharmacy Obesity - counseled on weight management DOROTHEA - likely from vasomotor nephropathy, will hydrate, monitor renal function Sepsis - with leukopenia, RR elevated, will cont antibiotics and fluids FEN - General diet PPX - lovenox FULL CODE Dispo - Transfer to ICU on BIPAP History of Present Illness History of Present Illness Mr Bertrand is a 69yo M w/ PMHX chronic persistent asthma, HTN, esophageal strictures, low testosterone, prior portal vein thrombus who presents to the ED at the insistence of his stepson with c/o difficulty breathing, cough, fever for the last 5 days. Patient was exposed to a ubgvtomb-ju-gyb who had COVID-19 infection last week. He went to his doctor today, his oxygen saturation was 70% on room air in the clinic. Therefore he was brought here by his son for evaluation. He has been having difficulty sleeping due to his shortness of breath. O2 saturations 62% on arrival improved with 15L facemask O2.. EKG was done at 1027, heart rate 70 beats per minute, sinus rhythm, no ST seg ment elevation Chest radiograph with multifocal interstitial and alveolar infiltrate with suspected partial left lower lobe consolidation as well as small bilateral pleural effusions. Labs with WBC 3.9, Hb 14.1, platelets 171, albumin 3.3, trop 0, BNP 1082, Na 138, K 4.3, BUN 49, Cr 1.7, glucose 115. Admitted for further care. Overnight a bit confused. ABG 7.1 /72 on 15 L. More short of breath Vitals/I&O Vitals/I&O: Vital Signs Date Time Temp Pulse Resp B/P (MAP) Pulse Ox O2 Delivery O2 Flow Rate FiO2 04/28/20 13:00 73 24 116/63 (80) 97 BiPAP/CPAP 04/28/20 12:00 98.2 98.2 04/28/20 00:00 15.0 I & O 04/27/20 04/27/20 04/28/20 15:00 23:00 07:00 Intake Total 250 ml 120 ml Output Total 40 ml 425 ml Balance 250 ml -40 ml -305 ml Physical Exam General: Alert, Oriented X3, Cooperative, moderate distress Lungs: Clear Abdomen: Normal bowel sounds, Soft, No tenderness, No hepatosplenomegaly, No masses Extremities: No clubbing, No cyanosis, No edema, Normal pulses, No tenderness/swelling Skin: No rashes, No breakdown, No significant lesion Labs Labs: Laboratory Tests Test 04/27/20 17:47 04/27/20 21:19 04/28/20 03:33 04/28/20 06:12 Glucose (Fingerstick) 122 mg/dL (70-99) 172 mg/dL (70-99) O2 Saturation 91 % (92-99) 96 % (92-99) Arterial Blood pH 7.16 (7.35-7.45) 7.19 (7.35-7.45) Arterial Blood pCO2 at Patient Temp 88 mmHg (35-46) 86 mmHg (35-46) Arterial Blood pO2 at Patient Temp 72 mmHg (65-108) 99 mmHg (65-108) Arterial Blood HCO3 30 mmol/L (21-28) 32 mmol/L (21-28) Arterial Blood Base Excess -1 mmol/L (-3-3) 1 mmol/L (-3-3) FiO2 100 100 Test 04/28/20 09:25 04/28/20 11:05 O2 Saturation 93 % (92-99) Arterial Blood pH 7.23 (7.35-7.45) Arterial Blood pCO2 at Patient Temp 75 mmHg (35-46) Arterial Blood pO2 at Patient Temp 74 mmHg (65-108) Arterial Blood HCO3 31 mmol/L (21-28) Arterial Blood Base Excess 1 mmol/L (-3-3) Oxyhemoglobin 92.2 % Methemoglobin 0.4 % (0.0-1.9) Carbon Monoxide, Quantitative 0.2 % (0.0-1.9) FiO2 65% bipap White Blood Count 4.8 x10^3/uL (4.0-11.0) Red Blood Count 4.69 x10^6/uL (4.30-5.70) Hemoglobin 14.2 g/dL (13.0-17.5) Hematocrit 43.0 % (39.0-53.0) Mean Corpuscular Volume 92 fL (79-100) Mean Corpuscular Hemoglobin 30 pg (25-35) Mean Corpuscular Hemoglobin Concent 33 g/dL (31-37) Red Cell Distribution Width 15.8 % (11.5-14.5) Platelet Count 156 x10^3/uL (140-400) Neutrophils (%) (Auto) 77 % (31-73) Lymphocytes (%) (Auto) 14 % (24-48) Monocytes (%) (Auto) 8 % (0-9) Eosinophils (%) (Auto) 0 % (0-3) Basophils (%) (Auto) 0 % (0-3) Neutrophils # (Auto) 3.7 x10^3/uL (1.8-7.7) Lymphocytes # (Auto) 0.7 x10^3/uL (1.0-4.8) Monocytes # (Auto) 0.4 x10^3/uL (0.0-1.1) Eosinophils # (Auto) 0.0 x10^3/uL (0.0-0.7) Basophils # (Auto) 0.0 x10^3/uL (0.0-0.2) D-Dimer (Ania) 0.85 ug/mlFEU (0.00-0.50) Sodium Level 141 mmol/L (136-145) Potassium Level 5.1 mmol/L (3.5-5.1) Chloride Level 104 mmol/L (98-107) Carbon Dioxide Level 32 mmol/L (21-32) Anion Gap 5 (6-14) Blood Urea Nitrogen 46 mg/dL (8-26) Creatinine 1.1 mg/dL (0.7-1.3) Estimated GFR (Cockcroft-Gault) 66.6 BUN/Creatinine Ratio 42 (6-20) Glucose Level 103 mg/dL (70-99) Calcium Level 7.8 mg/dL (8.5-10.1) Total Bilirubin 0.6 mg/dL (0.2-1.0) Aspartate Amino Transf (AST/SGOT) 27 U/L (15-37) Alanine Aminotransferase (ALT/SGPT) 24 U/L (16-63) Alkaline Phosphatase 47 U/L (46-116) Total Protein 6.8 g/dL (6.4-8.2) Albumin 2.8 g/dL (3.4-5.0) Albumin/Globulin Ratio 0.7 (1.0-1.7) Assessment and Plan Assessmemt and Plan Problems Medical Problems: (1) Pneumonia due to COVID-19 virus Status: Acute (2) Respiratory failure Status: Acute Comment Review of Relevant I have reviewed the following items ruby (where applicable) has been applied. Medications: Current Medications Medications (Trade) Dose Ordered Sig/Alondra Route PRN Reason Start Time Stop Time Status Last Admin Dose Admin Sodium Chloride 1,000 ml @ 1,000 mls/hr 1X ONCE IV 04/27/20 14:15 04/27/20 15:14 DC 04/27/20 14:08 Montelukast Sodium (Singulair) 10 mg HS PO 04/27/20 21:00 04/27/20 22:11 Enoxaparin Sodium (Lovenox 40mg Syringe) 40 mg Q12HR SQ 04/27/20 17:00 04/28/20 11:33 Zinc Sulfate (Orazinc) 220 mg DAILY PO 04/27/20 16:30 04/28/20 11:33 Thiamine Mononitrate (Vitamin B-1) 100 mg DAILY PO 04/27/20 16:30 04/28/20 11:33 Ceftriaxone Sodium (Rocephin) 1 gm Q24H IVP 04/28/20 13:00 04/28/20 13:13 Azithromycin 250 mg/Sodium Chloride 250 ml @ 250 mls/hr Q24H IV 04/28/20 12:00 04/28/20 12:07 Amino Acids/ Glycerin/ Electrolytes 1,000 ml @ 80 mls/hr [id number] IV 04/27/20 17:00 04/28/20 11:33 Dexamethasone (Decadron) 6 mg [id number] PO 04/28/20 08:00 04/28/20 11:33 Remdesivir 200 mg/ Sodium Chloride 210 ml @ 210 mls/hr 1X ONCE IV 04/27/20 18:00 04/27/20 18:59 DC 04/27/20 18:33 Zolpidem Tartrate (Ambien) 5 mg PRN QHS PRN PO INSOMNIA 04/27/20 21:15 04/27/20 22:11 Naproxen (Naprosyn) 500 mg PRN Q12HRS PRN PO MODERATE PAIN 4-6 04/27/20 22:00 04/27/20 22:11 Lorazepam (Ativan) 1 mg PRN Q6HRS PRN PO ANXIETY / AGITATION 04/28/20 02:30 04/28/20 02:45 Morphine Sulfate (Morphine Sulfate) 4 mg PRN Q4HRS PRN IV PAIN 04/28/20 11:30 04/28/20 11:34 Justifications for Admission Other Justification LIDIA GUEVARA MD Apr 28, 2020 13:48
[2020-04-28 17:05] LABS: BASE EXCESS ABG 3 mmol/L (-3-3); HCO3 ABG 32 mmol/L (21-28); PO2 ABG 70 mmHg (65-108); SAT O2 ABG 92 % (92-99)
--- NOTE | 2020-04-28 17:15 | NUR ---
SW informed by RN that pt transferred to ICU. No further needs from this SW
[2020-04-28 17:18] LABS: PCO2 ABG 74 mmHg (35-46)
[2020-04-28 17:19] LABS: FIO2 ABG 60% BIPAP
[2020-04-28] MEDS: REMDESIVIR 100mg in NORMAL SALINE 250ML X 4 DAYS IV SCH (17:31)
--- NOTE | 2020-04-28 18:28 | NUR ---
Repeat ABG given to Dr. Burgre, orders received to decrease FIO2 to 55% and if SPO2 maintains >90%, may turn down to 50%. SPO2 is ok between 88-92%.
[2020-04-28] MEDS: LACTOBACILLUS RHAMNOSUS GG 1 CAPSULE. PO SCH (21:22)
[2020-04-28] MEDS: MONTELUKAST SODIUM 10 MG TABLET. PO SCH (21:23)
[2020-04-29] VITALS (24 sets, daily range): BP systolic 96–136; BP diastolic 60–78
[2020-04-29] MEDS: INSULIN LISPRO 300 UNITS/3 ML VIAL. SQ SCH ×3 (08:00→16:57)
--- NOTE | 2020-04-29 08:00 | PDOC ---
[facility] PROGRESS NOTE Date of Service DOS: DATE: 04/29/20 TIME: 07:57 Chief Complaint Chief Complaint A/P: Acute respiratory failure with hypoxia -likely COVID-19 related given recent exposure and O2 needs. Also with left lower lobe pneumonia likely gram- negative. Acute respiratory failure with hypercapnia - likely also COVID 19 related or COPD from his chronic asthma with retention Pneumonia - Multifocal interstitial and alveolar infiltrate with suspected partial left lower lobe consolidation. Will treat as gram negative Small bilateral pleural effusions - will monitor Hypotension - likely related to prolonged hypoxemia, sepsis from pneumonia, covid 19, will fluid challenge. HTN - hold amlodipine Asthma - moderate persistent by history, cont singulair, will order inhalers from pharmacy Obesity - counseled on weight management DOROTHEA - likely from vasomotor nephropathy, will hydrate, monitor renal function Sepsis - with leukopenia, RR elevated, will cont antibiotics and fluids FEN - General diet PPX - lovenox FULL CODE Dispo - Transfer to ICU on BIPAP History of Present Illness History of Present Illness Mr Bertrand is a 69yo M w/ PMHX chronic persistent asthma, HTN, esophageal strictures, low testosterone, prior portal vein thrombus who presents to the ED at the insistence of his stepson with c/o difficulty breathing, cough, fever for the last 5 days. Patient was exposed to a watzigyb-bu-djp who had COVID-19 infection last week. He went to his doctor today, his oxygen saturation was 70% on room air in the clinic. Therefore he was brought here by his son for evaluation. He has been having difficulty sleeping due to his shortness of breath. O2 saturations 62% on arrival improved with 15L facemask O2.. EKG was done at 1027, heart rate 70 beats per minute, sinus rhythm, no ST seg ment elevation Chest radiograph with multifocal interstitial and alveolar infiltrate with suspected partial left lower lobe consolidation as well as small bilateral pleural effusions. Labs with WBC 3.9, Hb 14.1, platelets 171, albumin 3.3, trop 0, BNP 1082, Na 138, K 4.3, BUN 49, Cr 1.7, glucose 115. Admitted for further care. 04/28: Overnight a bit confused. ABG 7.1 on 15 L. More short of breath 04/29: Patient was moved out of the ICU yesterday. Currently breathing on BiPAP, FiO2 50%. Afebrile, tachypneic. COVID-19 positive. Continue remdesivir, steroids, Rocephin, azithromycin, and supportive care. Cussed with RN. Vitals/I&O Vitals/I&O: Vital Signs Date Time Temp Pulse Resp B/P (MAP) Pulse Ox O2 Delivery O2 Flow Rate FiO2 04/29/20 07:06 98.3 86 52 115/65 (82) 98 BiPAP/CPAP 40.0 98.3 I & O 04/28/20 04/28/20 04/29/20 15:00 23:00 07:00 Intake Total 490 ml 478 ml 1129.8 ml Output Total 925 ml 1000 ml 775 ml Balance -435 ml -522 ml 354.8 ml Physical Exam General: Alert, Cooperative, moderate distress Heart: Regular rate Lungs: Other (Coarse breath sounds, tachypneic) Abdomen: Normal bowel sounds, Soft, No tenderness, No hepatosplenomegaly, No masses Extremities: No clubbing, No cyanosis, No edema, Normal pulses, No tenderness/swelling Skin: No rashes, No breakdown, No significant lesion Labs Labs: Laboratory Tests Test 04/28/20 09:25 04/28/20 11:05 04/28/20 16:51 04/28/20 20:08 O2 Saturation 93 % (92-99) 92 % (92-99) Arterial Blood pH 7.23 (7.35-7.45) 7.26 (7.35-7.45) Arterial Blood pCO2 at Patient Temp 75 mmHg (35-46) 74 mmHg (35-46) Arterial Blood pO2 at Patient Temp 74 mmHg (65-108) 70 mmHg (65-108) Arterial Blood HCO3 31 mmol/L (21-28) 32 mmol/L (21-28) Arterial Blood Base Excess 1 mmol/L (-3-3) 3 mmol/L (-3-3) Oxyhemoglobin 92.2 % Methemoglobin 0.4 % (0.0-1.9) Carbon Monoxide, Quantitative 0.2 % (0.0-1.9) FiO2 65% bipap 60% bipap White Blood Count 4.8 x10^3/uL (4.0-11.0) Red Blood Count 4.69 x10^6/uL (4.30-5.70) Hemoglobin 14.2 g/dL (13.0-17.5) Hematocrit 43.0 % (39.0-53.0) Mean Corpuscular Volume 92 fL (79-100) Mean Corpuscular Hemoglobin 30 pg (25-35) Mean Corpuscular Hemoglobin Concent 33 g/dL (31-37) Red Cell Distribution Width 15.8 % (11.5-14.5) Platelet Count 156 x10^3/uL (140-400) Neutrophils (%) (Auto) 77 % (31-73) Lymphocytes (%) (Auto) 14 % (24-48) Monocytes (%) (Auto) 8 % (0-9) Eosinophils (%) (Auto) 0 % (0-3) Basophils (%) (Auto) 0 % (0-3) Neutrophils # (Auto) 3.7 x10^3/uL (1.8-7.7) Lymphocytes # (Auto) 0.7 x10^3/uL (1.0-4.8) Monocytes # (Auto) 0.4 x10^3/uL (0.0-1.1) Eosinophils # (Auto) 0.0 x10^3/uL (0.0-0.7) Basophils # (Auto) 0.0 x10^3/uL (0.0-0.2) D-Dimer (Ania) 0.85 ug/mlFEU (0.00-0.50) Sodium Level 141 mmol/L (136-145) Potassium Level 5.1 mmol/L (3.5-5.1) Chloride Level 104 mmol/L (98-107) Carbon Dioxide Level 32 mmol/L (21-32) Anion Gap 5 (6-14) Blood Urea Nitrogen 46 mg/dL (8-26) Creatinine 1.1 mg/dL (0.7-1.3) Estimated GFR (Cockcroft-Gault) 66.6 BUN/Creatinine Ratio 42 (6-20) Glucose Level 103 mg/dL (70-99) Calcium Level 7.8 mg/dL (8.5-10.1) Total Bilirubin 0.6 mg/dL (0.2-1.0) Aspartate Amino Transf (AST/SGOT) 27 U/L (15-37) Alanine Aminotransferase (ALT/SGPT) 24 U/L (16-63) Alkaline Phosphatase 47 U/L (46-116) Total Protein 6.8 g/dL (6.4-8.2) Albumin 2.8 g/dL (3.4-5.0) Albumin/Globulin Ratio 0.7 (1.0-1.7) Glucose (Fingerstick) 119 mg/dL (70-99) Assessment and Plan Assessmemt and Plan Problems Medical Problems: (1) Pneumonia due to COVID-19 virus Status: Acute (2) Respiratory failure Status: Acute Comment Review of Relevant I have reviewed the following items ruby (where applicable) has been applied. Medications: Current Medications Medications (Trade) Dose Ordered Sig/Alondra Route PRN Reason Start Time Stop Time Status Last Admin Dose Admin Ceftriaxone Sodium (Rocephin) 1 gm Q24H IVP 04/28/20 13:00 04/28/20 13:13 Azithromycin 250 mg/Sodium Chloride 250 ml @ 250 mls/hr Q24H IV 04/28/20 12:00 05/02/20 12:59 04/28/20 12:07 Dexamethasone (Decadron) 6 mg [id number] PO 04/28/20 08:00 04/28/20 11:33 Remdesivir 100 mg/ Sodium Chloride 230 ml @ 460 mls/hr Q24H IV 04/28/20 18:00 05/01/20 18:29 04/28/20 17:31 Lactobacillus Rhamnosus (Culturelle) 1 cap BID PO 04/28/20 21:00 04/28/20 21:22 Morphine Sulfate (Morphine Sulfate) 4 mg PRN Q4HRS PRN IV PAIN 04/28/20 11:30 04/28/20 23:54 Justifications for Admission Other Justification CAIT GORE MD Apr 29, 2020 08:00
[2020-04-29 08:42] LABS: BASE EXCESS ABG 4 mmol/L (-3-3); HCO3 ABG 34 mmol/L (21-28); PO2 ABG 62 mmHg (65-108); SAT O2 ABG 90 % (92-99)
[2020-04-29 08:48] LABS: FIO2 ABG 50; PCO2 ABG 73 mmHg (35-46)
[2020-04-29] MEDS: THIAMINE 100 MG TABLET. PO SCH (08:48)
[2020-04-29] MEDS: LACTOBACILLUS RHAMNOSUS GG 1 CAPSULE. PO SCH ×2 (08:48→21:20)
[2020-04-29] MEDS: ENOXAPARIN 40 MG/0.4 ML SYRINGE. SQ SCH ×2 (08:49→21:20)
[2020-04-29] MEDS: DEXAMETHASONE 4 MG TABLET PO SCH (08:49)
[2020-04-29] MEDS: ZINC SULFATE 220 MG CAPSULE. PO SCH (08:49)
[2020-04-29 08:59] LABS: ALBUMIN 2.5 g/dL (3.4-5.0); ALBUMIN/GLOBULIN RATIO 0.6 (1.0-1.7); CALCIUM 8.1 mg/dL (8.5-10.1); CREATININE 0.9 mg/dL (0.7-1.3); GFR 83.9; POTASSIUM 5.8 mmol/L (3.5-5.1); TOTAL BILIRUBIN 0.4 mg/dL (0.2-1.0); TOTAL PROTEIN 6.5 g/dL (6.4-8.2)
[2020-04-29] MEDS: MORPHINE SULFATE 4 MG/ML VIAL. IV PRN ×3 (09:29→23:42)
--- NOTE | 2020-04-29 10:11 | NUR ---
SS following for discharge planning. SS reviewed pt chart and discussed with pt RN. Pt is from home with spouse and is currently on the BIPAP at 40%. COVID19 positive. Pt on IV Remdesivir, IV Rocephin, and IV Azithromycin. PPN. SS will continue to follow for discharge planning.
--- NOTE | 2020-04-29 11:11 | PDOC ---
PULMONARY PROGRESS NOTES DATE: 04/29/20 TIME: 11:03 Subjective Awake and alert remains on BIPAP no overnight concerns from nursing Vitals Vital Signs Date Time Temp Pulse Resp B/P (MAP) Pulse Ox O2 Delivery O2 Flow Rate FiO2 04/29/20 10:20 98.3 48 41 102/61 (75) 99 40.0 98.3 04/29/20 09:29 BiPAP/CPAP ROS: No Nausea, No Chest Pain, No Abdominal Pain, No Increase Cough General: Alert, Oriented X4 Lungs: Clear Cardiovascular: S1, S2 Abdomen: Soft, Non-tender Extremities: Other (trace edema) Labs Laboratory Tests Test 04/27/20 12:46 04/27/20 17:47 04/27/20 21:19 04/28/20 03:33 Urine Collection Type Unknown Urine Color Jaky Urine Clarity Clear Urine pH 5.5 (<5.0-8.0) Urine Specific [place] 1.020 (1.000-1.030) Urine Protein 30 mg/dL (NEG-TRACE) Urine Glucose (UA) Negative mg/dL (NEG) Urine Ketones (Stick) Negative mg/dL (NEG) Urine Blood Negative (NEG) Urine Nitrite Negative (NEG) Urine Bilirubin Small (NEG) Urine Urobilinogen Dipstick 1.0 mg/dL (0.2 mg/dL) Urine Leukocyte Esterase Negative (NEG) Urine RBC 0 /HPF (0-2) Urine WBC 1-4 /HPF (0-4) Urine Transitional Epithelial Cells Occ /LPF Urine Amorphous Sediment Present /HPF Urine Bacteria 0 /HPF (0-FEW) Urine Hyaline Casts Many /HPF Urine Granular Casts Few /HPF Urine Mucus Marked /LPF Glucose (Fingerstick) 122 mg/dL (70-99) 172 mg/dL (70-99) O2 Saturation 91 % (92-99) Arterial Blood pH 7.16 (7.35-7.45) Arterial Blood pCO2 at Patient Temp 88 mmHg (35-46) Arterial Blood pO2 at Patient Temp 72 mmHg (65-108) Arterial Blood HCO3 30 mmol/L (21-28) Arterial Blood Base Excess -1 mmol/L (-3-3) FiO2 100 Test 04/28/20 06:12 04/28/20 09:25 04/28/20 11:05 04/28/20 16:51 O2 Saturation 96 % (92-99) 93 % (92-99) 92 % (92-99) Arterial Blood pH 7.19 (7.35-7.45) 7.23 (7.35-7.45) 7.26 (7.35-7.45) Arterial Blood pCO2 at Patient Temp 86 mmHg (35-46) 75 mmHg (35-46) 74 mmHg (35-46) Arterial Blood pO2 at Patient Temp 99 mmHg (65-108) 74 mmHg (65-108) 70 mmHg (65-108) Arterial Blood HCO3 32 mmol/L (21-28) 31 mmol/L (21-28) 32 mmol/L (21-28) Arterial Blood Base Excess 1 mmol/L (-3-3) 1 mmol/L (-3-3) 3 mmol/L (-3-3) FiO2 100 65% bipap 60% bipap Oxyhemoglobin 92.2 % Methemoglobin 0.4 % (0.0-1.9) Carbon Monoxide, Quantitative 0.2 % (0.0-1.9) White Blood Count 4.8 x10^3/uL (4.0-11.0) Red Blood Count 4.69 x10^6/uL (4.30-5.70) Hemoglobin 14.2 g/dL (13.0-17.5) Hematocrit 43.0 % (39.0-53.0) Mean Corpuscular Volume 92 fL (79-100) Mean Corpuscular Hemoglobin 30 pg (25-35) Mean Corpuscular Hemoglobin Concent 33 g/dL (31-37) Red Cell Distribution Width 15.8 % (11.5-14.5) Platelet Count 156 x10^3/uL (140-400) Neutrophils (%) (Auto) 77 % (31-73) Lymphocytes (%) (Auto) 14 % (24-48) Monocytes (%) (Auto) 8 % (0-9) Eosinophils (%) (Auto) 0 % (0-3) Basophils (%) (Auto) 0 % (0-3) Neutrophils # (Auto) 3.7 x10^3/uL (1.8-7.7) Lymphocytes # (Auto) 0.7 x10^3/uL (1.0-4.8) Monocytes # (Auto) 0.4 x10^3/uL (0.0-1.1) Eosinophils # (Auto) 0.0 x10^3/uL (0.0-0.7) Basophils # (Auto) 0.0 x10^3/uL (0.0-0.2) D-Dimer (Ania) 0.85 ug/mlFEU (0.00-0.50) Sodium Level 141 mmol/L (136-145) Potassium Level 5.1 mmol/L (3.5-5.1) Chloride Level 104 mmol/L (98-107) Carbon Dioxide Level 32 mmol/L (21-32) Anion Gap 5 (6-14) Blood Urea Nitrogen 46 mg/dL (8-26) Creatinine 1.1 mg/dL (0.7-1.3) Estimated GFR (Cockcroft-Gault) 66.6 BUN/Creatinine Ratio 42 (6-20) Glucose Level 103 mg/dL (70-99) Calcium Level 7.8 mg/dL (8.5-10.1) Total Bilirubin 0.6 mg/dL (0.2-1.0) Aspartate Amino Transf (AST/SGOT) 27 U/L (15-37) Alanine Aminotransferase (ALT/SGPT) 24 U/L (16-63) Alkaline Phosphatase 47 U/L (46-116) Total Protein 6.8 g/dL (6.4-8.2) Albumin 2.8 g/dL (3.4-5.0) Albumin/Globulin Ratio 0.7 (1.0-1.7) Test 04/28/20 20:08 04/29/20 07:40 04/29/20 08:10 Glucose (Fingerstick) 119 mg/dL (70-99) D-Dimer (Ania) 0.81 ug/mlFEU (0.00-0.50) Sodium Level 141 mmol/L (136-145) Potassium Level 5.8 mmol/L (3.5-5.1) Chloride Level 105 mmol/L (98-107) Carbon Dioxide Level 33 mmol/L (21-32) Anion Gap 3 (6-14) Blood Urea Nitrogen 35 mg/dL (8-26) Creatinine 0.9 mg/dL (0.7-1.3) Estimated GFR (Cockcroft-Gault) 83.9 BUN/Creatinine Ratio 39 (6-20) Glucose Level 101 mg/dL (70-99) Calcium Level 8.1 mg/dL (8.5-10.1) Total Bilirubin 0.4 mg/dL (0.2-1.0) Aspartate Amino Transf (AST/SGOT) 23 U/L (15-37) Alanine Aminotransferase (ALT/SGPT) 21 U/L (16-63) Alkaline Phosphatase 44 U/L (46-116) Total Protein 6.5 g/dL (6.4-8.2) Albumin 2.5 g/dL (3.4-5.0) Albumin/Globulin Ratio 0.6 (1.0-1.7) O2 Saturation 90 % (92-99) Arterial Blood pH 7.28 (7.35-7.45) Arterial Blood pCO2 at Patient Temp 73 mmHg (35-46) Arterial Blood pO2 at Patient Temp 62 mmHg (65-108) Arterial Blood HCO3 34 mmol/L (21-28) Arterial Blood Base Excess 4 mmol/L (-3-3) FiO2 50 Laboratory Tests Test 04/28/20 11:05 04/28/20 16:51 04/28/20 20:08 04/29/20 07:40 White Blood Count 4.8 x10^3/uL (4.0-11.0) Red Blood Count 4.69 x10^6/uL (4.30-5.70) Hemoglobin 14.2 g/dL (13.0-17.5) Hematocrit 43.0 % (39.0-53.0) Mean Corpuscular Volume 92 fL (79-100) Mean Corpuscular Hemoglobin 30 pg (25-35) Mean Corpuscular Hemoglobin Concent 33 g/dL (31-37) Red Cell Distribution Width 15.8 % (11.5-14.5) Platelet Count 156 x10^3/uL (140-400) Neutrophils (%) (Auto) 77 % (31-73) Lymphocytes (%) (Auto) 14 % (24-48) Monocytes (%) (Auto) 8 % (0-9) Eosinophils (%) (Auto) 0 % (0-3) Basophils (%) (Auto) 0 % (0-3) Neutrophils # (Auto) 3.7 x10^3/uL (1.8-7.7) Lymphocytes # (Auto) 0.7 x10^3/uL (1.0-4.8) Monocytes # (Auto) 0.4 x10^3/uL (0.0-1.1) Eosinophils # (Auto) 0.0 x10^3/uL (0.0-0.7) Basophils # (Auto) 0.0 x10^3/uL (0.0-0.2) D-Dimer (Ania) 0.85 ug/mlFEU (0.00-0.50) 0.81 ug/mlFEU (0.00-0.50) Sodium Level 141 mmol/L (136-145) 141 mmol/L (136-145) Potassium Level 5.1 mmol/L (3.5-5.1) 5.8 mmol/L (3.5-5.1) Chloride Level 104 mmol/L (98-107) 105 mmol/L (98-107) Carbon Dioxide Level 32 mmol/L (21-32) 33 mmol/L (21-32) Anion Gap 5 (6-14) 3 (6-14) Blood Urea Nitrogen 46 mg/dL (8-26) 35 mg/dL (8-26) Creatinine 1.1 mg/dL (0.7-1.3) 0.9 mg/dL (0.7-1.3) Estimated GFR (Cockcroft-Gault) 66.6 83.9 BUN/Creatinine Ratio 42 (6-20) 39 (6-20) Glucose Level 103 mg/dL (70-99) 101 mg/dL (70-99) Calcium Level 7.8 mg/dL (8.5-10.1) 8.1 mg/dL (8.5-10.1) Total Bilirubin 0.6 mg/dL (0.2-1.0) 0.4 mg/dL (0.2-1.0) Aspartate Amino Transf (AST/SGOT) 27 U/L (15-37) 23 U/L (15-37) Alanine Aminotransferase (ALT/SGPT) 24 U/L (16-63) 21 U/L (16-63) Alkaline Phosphatase 47 U/L (46-116) 44 U/L (46-116) Total Protein 6.8 g/dL (6.4-8.2) 6.5 g/dL (6.4-8.2) Albumin 2.8 g/dL (3.4-5.0) 2.5 g/dL (3.4-5.0) Albumin/Globulin Ratio 0.7 (1.0-1.7) 0.6 (1.0-1.7) O2 Saturation 92 % (92-99) Arterial Blood pH 7.26 (7.35-7.45) Arterial Blood pCO2 at Patient Temp 74 mmHg (35-46) Arterial Blood pO2 at Patient Temp 70 mmHg (65-108) Arterial Blood HCO3 32 mmol/L (21-28) Arterial Blood Base Excess 3 mmol/L (-3-3) FiO2 60% bipap Glucose (Fingerstick) 119 mg/dL (70-99) Test 04/29/20 08:10 O2 Saturation 90 % (92-99) Arterial Blood pH 7.28 (7.35-7.45) Arterial Blood pCO2 at Patient Temp 73 mmHg (35-46) Arterial Blood pO2 at Patient Temp 62 mmHg (65-108) Arterial Blood HCO3 34 mmol/L (21-28) Arterial Blood Base Excess 4 mmol/L (-3-3) FiO2 50 Medications Active Scripts Medications Dose Route/Sig Max Daily Dose Days Date Category Medrol (Methylprednisolone) 4 Mg Tab.ds.pk 1 Pkg PO UD 06/28/15 Reported Norvasc (Amlodipine Besylate) 5 Mg Tablet 1 Tab PO DAILY 06/22/15 Reported Proair Hfa Inhaler (Albuterol Sulfate) 8.5 Gm Hfa.aer.ad 1 Puff INH PRN Q6HRS PRN 06/22/15 Reported Advair 250-50 Diskus (Fluticasone/Salmeterol) 1 Each Disk.w.dev 1 Inh IH BID 06/22/15 Reported Singulair Tablet (Montelukast Sodium) 10 Mg Tablet 10 Mg PO HS 01/15/14 Reported Comments CXR IMPRESSION: 1. Multifocal interstitial and alveolar infiltrate with suspected partial left lower lobe consolidation. 2. Small bilateral pleural effusions. 3. Chronic cardiac silhouette and elevation of the right hemidiaphragm. Impression . 1. Acute on chronic hypercapnic/ hypoxemic respiratory failure. 2. Abnormal x-ray compatible with pneumonia, possible COVID-19. 3. Possible COVID-19 viral pneumonia. 4. COVID-19 exposure. 5. Hypotension,---resolved 6. Asthma, mild in nature. The patient uses p.r.n. albuterol and Singulair. 7. Obesity. 8. Acute kidney injury---resolved Plan . Continue BIPAP, change to /6, rate 24 at 40%, repeat ABG at 1300 Follow CXR/ABG Continue ABX Continue steroids for full ten day course Continue empiric ABX on Rocpehin and azithromycin Continue Remdesvir for full course Covid positive Continue bronchodilators Hyperkalemia per PCP DVT/GI PPX D/W RN and RT Critical Care time [id number] ANGELY LOWRY MD Apr 29, 2020 11:11
[2020-04-29] MEDS: AMINO AC 3%/ELECTROLYTE/GLYCER 1,000 ML IV SCH ×2 (12:24→19:15)
[2020-04-29] MEDS: AZITHROMYCIN 250 MG in IV NORMAL SALINE 250ML 250 ML IV SCH (12:25)
[2020-04-29 13:10] LABS: BASE EXCESS ABG 5 mmol/L (-3-3); HCO3 ABG 35 mmol/L (21-28); PO2 ABG 59 mmHg (65-108); SAT O2 ABG 89 % (92-99)
[2020-04-29 13:14] LABS: PCO2 ABG 78 mmHg (35-46)
[2020-04-29] MEDS: cefTRIAXone IV Push 1 GM VIAL. IVP SCH (13:40)
[2020-04-29] MEDS ORDERED: FUROSEMIDE 40 MG/4 ML VIAL. IVP ONE (17:00)
[2020-04-29] MEDS: REMDESIVIR 100mg in NORMAL SALINE 250ML X 4 DAYS IV SCH (18:02)
[2020-04-29] MEDS: MONTELUKAST SODIUM 10 MG TABLET. PO SCH (21:20)
[2020-04-30] VITALS (22 sets, daily range): BP systolic 96–181; BP diastolic 55–95
--- NOTE | 2020-04-30 06:47 | NUR ---
Patient bathed. During bathing, O2 sat dropped to 72%. Now on 50% FiO2 with sats of 88-92%. Denies pain, distress, or needs at this time.RT informed of FiO2 change.
[2020-04-30] MEDS: INSULIN LISPRO 300 UNITS/3 ML VIAL. SQ SCH ×3 (08:00→16:50)
[2020-04-30] MEDS ORDERED: SODIUM POLYSTYRENE SULFON/SORB 15 GM/60 ML ORAL.SUSP. PO ONE (08:30)
[2020-04-30] MEDS ORDERED: FUROSEMIDE 40 MG/4 ML VIAL. IVP ONE (08:30)
--- NOTE | 2020-04-30 08:33 | PDOC ---
[facility] PROGRESS NOTE Date of Service DOS: DATE: 04/30/20 TIME: 08:29 Chief Complaint Chief Complaint A/P: Acute respiratory failure with hypoxia -likely COVID-19 related given recent exposure and O2 needs. Also with left lower lobe pneumonia likely gram- negative. Acute respiratory failure with hypercapnia - likely also COVID 19 related or COPD from his chronic asthma with retention Pneumonia - Multifocal interstitial and alveolar infiltrate with suspected partial left lower lobe consolidation. Will treat as gram negative Small bilateral pleural effusions - will monitor Hypotension - likely related to prolonged hypoxemia, sepsis from pneumonia, covid 19, will fluid challenge. HTN - hold amlodipine Asthma - moderate persistent by history, cont singulair, will order inhalers from pharmacy Obesity - counseled on weight management DOROTHEA - likely from vasomotor nephropathy, will hydrate, monitor renal function Sepsis - with leukopenia, RR elevated, will cont antibiotics and fluids FEN - General diet PPX - lovenox FULL CODE Dispo - Transfer to ICU on BIPAP History of Present Illness History of Present Illness Mr Bertrand is a 69yo M w/ PMHX chronic persistent asthma, HTN, esophageal strictures, low testosterone, prior portal vein thrombus who presents to the ED at the insistence of his stepson with c/o difficulty breathing, cough, fever for the last 5 days. Patient was exposed to a oiqhzksa-eq-aex who had COVID-19 infection last week. He went to his doctor today, his oxygen saturation was 70% on room air in the clinic. Therefore he was brought here by his son for evaluation. He has been having difficulty sleeping due to his shortness of breath. O2 saturations 62% on arrival improved with 15L facemask O2.. EKG was done at 1027, heart rate 70 beats per minute, sinus rhythm, no ST seg ment elevation Chest radiograph with multifocal interstitial and alveolar infiltrate with suspected partial left lower lobe consolidation as well as small bilateral pleural effusions. Labs with WBC 3.9, Hb 14.1, platelets 171, albumin 3.3, trop 0, BNP 1082, Na 138, K 4.3, BUN 49, Cr 1.7, glucose 115. Admitted for further care. 04/28: Overnight a bit confused. ABG 7.1 on 15 L. More short of breath 04/29: Patient was moved out of the ICU yesterday. Currently breathing on BiPAP, FiO2 50%. Afebrile, tachypneic. COVID-19 positive. Continue remdesivir, steroids, Rocephin, azithromycin, and supportive care. Cussed with RN. 04/30: Patient seen in ICU. Still breathing on BiPAP, FiO2 50%. Some hypokalemia today, will treat with Kayexalate and Lasix, as this will also help with bilateral pleural effusions. Continue remdesivir, steroids, antibiotics. Vitals/I&O Vitals/I&O: Vital Signs Date Time Temp Pulse Resp B/P (MAP) Pulse Ox O2 Delivery O2 Flow Rate FiO2 04/30/20 07:27 40.0 04/30/20 07:00 97.7 51 30 100/55 (70) 92 97.7 04/30/20 06:00 BiPAP/CPAP I & O 04/29/20 04/29/20 04/30/20 15:00 23:00 07:00 Intake Total 300 ml 450 ml 1544 ml Output Total 1090 ml 2675 ml 900 ml Balance -790 ml -2225 ml 644 ml Physical Exam General: Alert, Cooperative, moderate distress Heart: Regular rate Lungs: Clear Abdomen: Normal bowel sounds, Soft, No tenderness, No hepatosplenomegaly, No masses Extremities: No clubbing, No cyanosis, No edema, Normal pulses, No tenderness/swelling Skin: No rashes, No breakdown, No significant lesion Labs Labs: Laboratory Tests Test 04/29/20 12:14 04/30/20 07:34 O2 Saturation 89 % (92-99) Arterial Blood pH 7.27 (7.35-7.45) Arterial Blood pCO2 at Patient Temp 78 mmHg (35-46) Arterial Blood pO2 at Patient Temp 59 mmHg (65-108) Arterial Blood HCO3 35 mmol/L (21-28) Arterial Blood Base Excess 5 mmol/L (-3-3) FiO2 40/bipap Glucose (Fingerstick) 87 mg/dL (70-99) Assessment and Plan Assessmemt and Plan Problems Medical Problems: (1) Pneumonia due to COVID-19 virus Status: Acute (2) Respiratory failure Status: Acute Comment Review of Relevant I have reviewed the following items ruby (where applicable) has been applied. Medications: Current Medications Medications (Trade) Dose Ordered Sig/Alondra Route PRN Reason Start Time Stop Time Status Last Admin Dose Admin Furosemide (Lasix) 40 mg 1X ONCE IVP 04/29/20 17:00 04/29/20 17:01 DC 04/29/20 17:00 Justifications for Admission Other Justification CAIT GORE MD Apr 30, 2020 08:33
[2020-04-30] MEDS: THIAMINE 100 MG TABLET. PO SCH (08:46)
[2020-04-30] MEDS: LACTOBACILLUS RHAMNOSUS GG 1 CAPSULE. PO SCH ×2 (08:46→20:17)
[2020-04-30] MEDS: ZINC SULFATE 220 MG CAPSULE. PO SCH (08:47)
[2020-04-30] MEDS: ENOXAPARIN 40 MG/0.4 ML SYRINGE. SQ SCH ×2 (08:47→20:17)
[2020-04-30] MEDS: DEXAMETHASONE 4 MG TABLET PO SCH (08:47)
[2020-04-30] MEDS: AMINO AC 3%/ELECTROLYTE/GLYCER 1,000 ML IV SCH (09:02)
[2020-04-30 09:21] LABS: ALBUMIN 2.6 g/dL (3.4-5.0); ALBUMIN/GLOBULIN RATIO 0.7 (1.0-1.7); CALCIUM 8.2 mg/dL (8.5-10.1); CREATININE 0.8 mg/dL (0.7-1.3); GFR 96.1; POTASSIUM 4.2 mmol/L (3.5-5.1); TOTAL BILIRUBIN 0.6 mg/dL (0.2-1.0); TOTAL PROTEIN 6.5 g/dL (6.4-8.2)
[2020-04-30 09:46] LABS: BASE EXCESS ABG 10 mmol/L (-3-3); HCO3 ABG 39 mmol/L (21-28); PO2 ABG 59 mmHg (65-108); SAT O2 ABG 90 % (92-99)
[2020-04-30 09:53] LABS: FIO2 ABG 50; PCO2 ABG 69 mmHg (35-46)
--- NOTE | 2020-04-30 10:56 | PDOC ---
PULMONARY PROGRESS NOTES DATE: 04/30/20 TIME: 10:53 Subjective Awake and alert remains on BIPAP no overnight concerns from nursing Vitals Vital Signs Date Time Temp Pulse Resp B/P (MAP) Pulse Ox O2 Delivery O2 Flow Rate FiO2 04/30/20 10:00 50 24 106/70 (82) 90 40.0 04/30/20 09:49 BiPAP/CPAP 04/30/20 07:00 97.7 97.7 Comments exam done via tele med General: Alert Abdomen: Other (obese) Extremities: Other (trace edema) Labs Laboratory Tests Test 04/28/20 11:05 04/28/20 16:51 04/28/20 20:08 04/29/20 07:40 White Blood Count 4.8 x10^3/uL (4.0-11.0) Red Blood Count 4.69 x10^6/uL (4.30-5.70) Hemoglobin 14.2 g/dL (13.0-17.5) Hematocrit 43.0 % (39.0-53.0) Mean Corpuscular Volume 92 fL (79-100) Mean Corpuscular Hemoglobin 30 pg (25-35) Mean Corpuscular Hemoglobin Concent 33 g/dL (31-37) Red Cell Distribution Width 15.8 % (11.5-14.5) Platelet Count 156 x10^3/uL (140-400) Neutrophils (%) (Auto) 77 % (31-73) Lymphocytes (%) (Auto) 14 % (24-48) Monocytes (%) (Auto) 8 % (0-9) Eosinophils (%) (Auto) 0 % (0-3) Basophils (%) (Auto) 0 % (0-3) Neutrophils # (Auto) 3.7 x10^3/uL (1.8-7.7) Lymphocytes # (Auto) 0.7 x10^3/uL (1.0-4.8) Monocytes # (Auto) 0.4 x10^3/uL (0.0-1.1) Eosinophils # (Auto) 0.0 x10^3/uL (0.0-0.7) Basophils # (Auto) 0.0 x10^3/uL (0.0-0.2) D-Dimer (Ania) 0.85 ug/mlFEU (0.00-0.50) 0.81 ug/mlFEU (0.00-0.50) Sodium Level 141 mmol/L (136-145) 141 mmol/L (136-145) Potassium Level 5.1 mmol/L (3.5-5.1) 5.8 mmol/L (3.5-5.1) Chloride Level 104 mmol/L (98-107) 105 mmol/L (98-107) Carbon Dioxide Level 32 mmol/L (21-32) 33 mmol/L (21-32) Anion Gap 5 (6-14) 3 (6-14) Blood Urea Nitrogen 46 mg/dL (8-26) 35 mg/dL (8-26) Creatinine 1.1 mg/dL (0.7-1.3) 0.9 mg/dL (0.7-1.3) Estimated GFR (Cockcroft-Gault) 66.6 83.9 BUN/Creatinine Ratio 42 (6-20) 39 (6-20) Glucose Level 103 mg/dL (70-99) 101 mg/dL (70-99) Calcium Level 7.8 mg/dL (8.5-10.1) 8.1 mg/dL (8.5-10.1) Total Bilirubin 0.6 mg/dL (0.2-1.0) 0.4 mg/dL (0.2-1.0) Aspartate Amino Transf (AST/SGOT) 27 U/L (15-37) 23 U/L (15-37) Alanine Aminotransferase (ALT/SGPT) 24 U/L (16-63) 21 U/L (16-63) Alkaline Phosphatase 47 U/L (46-116) 44 U/L (46-116) Total Protein 6.8 g/dL (6.4-8.2) 6.5 g/dL (6.4-8.2) Albumin 2.8 g/dL (3.4-5.0) 2.5 g/dL (3.4-5.0) Albumin/Globulin Ratio 0.7 (1.0-1.7) 0.6 (1.0-1.7) O2 Saturation 92 % (92-99) Arterial Blood pH 7.26 (7.35-7.45) Arterial Blood pCO2 at Patient Temp 74 mmHg (35-46) Arterial Blood pO2 at Patient Temp 70 mmHg (65-108) Arterial Blood HCO3 32 mmol/L (21-28) Arterial Blood Base Excess 3 mmol/L (-3-3) FiO2 60% bipap Glucose (Fingerstick) 119 mg/dL (70-99) Test 04/29/20 08:10 04/29/20 12:14 04/30/20 07:34 04/30/20 07:35 O2 Saturation 90 % (92-99) 89 % (92-99) Arterial Blood pH 7.28 (7.35-7.45) 7.27 (7.35-7.45) Arterial Blood pCO2 at Patient Temp 73 mmHg (35-46) 78 mmHg (35-46) Arterial Blood pO2 at Patient Temp 62 mmHg (65-108) 59 mmHg (65-108) Arterial Blood HCO3 34 mmol/L (21-28) 35 mmol/L (21-28) Arterial Blood Base Excess 4 mmol/L (-3-3) 5 mmol/L (-3-3) FiO2 50 40/bipap Glucose (Fingerstick) 87 mg/dL (70-99) Sodium Level 143 mmol/L (136-145) Potassium Level 4.2 mmol/L (3.5-5.1) Chloride Level 103 mmol/L (98-107) Carbon Dioxide Level 36 mmol/L (21-32) Anion Gap 4 (6-14) Blood Urea Nitrogen 31 mg/dL (8-26) Creatinine 0.8 mg/dL (0.7-1.3) Estimated GFR (Cockcroft-Gault) 96.1 BUN/Creatinine Ratio 39 (6-20) Glucose Level 85 mg/dL (70-99) Calcium Level 8.2 mg/dL (8.5-10.1) Total Bilirubin 0.6 mg/dL (0.2-1.0) Aspartate Amino Transf (AST/SGOT) 21 U/L (15-37) Alanine Aminotransferase (ALT/SGPT) 19 U/L (16-63) Alkaline Phosphatase 46 U/L (46-116) Total Protein 6.5 g/dL (6.4-8.2) Albumin 2.6 g/dL (3.4-5.0) Albumin/Globulin Ratio 0.7 (1.0-1.7) Test 04/30/20 07:45 1/7/21 09:40 D-Dimer (Ania) 1.07 ug/mlFEU (0.00-0.50) O2 Saturation 90 % (92-99) Arterial Blood pH 7.37 (7.35-7.45) Arterial Blood pCO2 at Patient Temp 69 mmHg (35-46) Arterial Blood pO2 at Patient Temp 59 mmHg (65-108) Arterial Blood HCO3 39 mmol/L (21-28) Arterial Blood Base Excess 10 mmol/L (-3-3) FiO2 50 Laboratory Tests Test 04/29/20 12:14 04/30/20 07:34 04/30/20 07:35 04/30/20 07:45 O2 Saturation 89 % (92-99) Arterial Blood pH 7.27 (7.35-7.45) Arterial Blood pCO2 at Patient Temp 78 mmHg (35-46) Arterial Blood pO2 at Patient Temp 59 mmHg (65-108) Arterial Blood HCO3 35 mmol/L (21-28) Arterial Blood Base Excess 5 mmol/L (-3-3) FiO2 40/bipap Glucose (Fingerstick) 87 mg/dL (70-99) Sodium Level 143 mmol/L (136-145) Potassium Level 4.2 mmol/L (3.5-5.1) Chloride Level 103 mmol/L (98-107) Carbon Dioxide Level 36 mmol/L (21-32) Anion Gap 4 (6-14) Blood Urea Nitrogen 31 mg/dL (8-26) Creatinine 0.8 mg/dL (0.7-1.3) Estimated GFR (Cockcroft-Gault) 96.1 BUN/Creatinine Ratio 39 (6-20) Glucose Level 85 mg/dL (70-99) Calcium Level 8.2 mg/dL (8.5-10.1) Total Bilirubin 0.6 mg/dL (0.2-1.0) Aspartate Amino Transf (AST/SGOT) 21 U/L (15-37) Alanine Aminotransferase (ALT/SGPT) 19 U/L (16-63) Alkaline Phosphatase 46 U/L (46-116) Total Protein 6.5 g/dL (6.4-8.2) Albumin 2.6 g/dL (3.4-5.0) Albumin/Globulin Ratio 0.7 (1.0-1.7) D-Dimer (Ania) 1.07 ug/mlFEU (0.00-0.50) Test 04/30/20 09:40 O2 Saturation 90 % (92-99) Arterial Blood pH 7.37 (7.35-7.45) Arterial Blood pCO2 at Patient Temp 69 mmHg (35-46) Arterial Blood pO2 at Patient Temp 59 mmHg (65-108) Arterial Blood HCO3 39 mmol/L (21-28) Arterial Blood Base Excess 10 mmol/L (-3-3) FiO2 50 Medications Active Scripts Medications Dose Route/Sig Max Daily Dose Days Date Category Medrol (Methylprednisolone) 4 Mg Tab.ds.pk 1 Pkg PO UD 06/28/15 Reported Norvasc (Amlodipine Besylate) 5 Mg Tablet 1 Tab PO DAILY 06/22/15 Reported Proair Hfa Inhaler (Albuterol Sulfate) 8.5 Gm Hfa.aer.ad 1 Puff INH PRN Q6HRS PRN 06/22/15 Reported Advair 250-50 Diskus (Fluticasone/Salmeterol) 1 Each Disk.w.dev 1 Inh IH BID 06/22/15 Reported Singulair Tablet (Montelukast Sodium) 10 Mg Tablet 10 Mg PO HS 01/15/14 Reported Comments CXR IMPRESSION: 1. Multifocal interstitial and alveolar infiltrate with suspected partial left lower lobe consolidation. 2. Small bilateral pleural effusions. 3. Chronic cardiac silhouette and elevation of the right hemidiaphragm. Impression . 1. Acute on chronic hypercapnic/ hypoxemic respiratory failure. 2. Abnormal x-ray compatible with pneumonia, COVID-19. 3. COVID-19 viral pneumonia. 4. COVID-19 exposure. 5. Hypotension,---resolved 6. Asthma, mild in nature. The patient uses p.r.n. albuterol and Singulair. 7. Obesity. 8. Acute kidney injury---resolved Plan . Continue BIPAP, changed to 26/6, rate 24 at 40%, repeat ABG improved today Follow CXR/ABG Continue ABX Continue steroids for full ten day course Continue empiric ABX on Rocpehin and azithromycin Continue Remdesvir for full course Covid positive Continue bronchodilators Hyperkalemia per PCP DVT/GI PPX D/W RN and RT ANGELY LOWRY MD Apr 30, 2020 10:56
[2020-04-30] MEDS: cefTRIAXone IV Push 1 GM VIAL. IVP SCH (12:07)
[2020-04-30] MEDS: AZITHROMYCIN 250 MG in IV NORMAL SALINE 250ML 250 ML IV SCH (12:08)
[2020-04-30] MEDS: REMDESIVIR 100mg in NORMAL SALINE 250ML X 4 DAYS IV SCH (16:51)
[2020-04-30] MEDS: NAPROXEN 500 MG TABLET PO PRN (20:16)
[2020-04-30] MEDS: MONTELUKAST SODIUM 10 MG TABLET. PO SCH (20:17)
[2020-04-30] MEDS: ZOLPIDEM 5 MG TABLET. PO PRN (21:53)
[2020-05-01] VITALS (24 sets, daily range): BP systolic 128–184; BP diastolic 69–105
[2020-05-01] MEDS: MORPHINE SULFATE 4 MG/ML VIAL. IV PRN ×2 (06:42→15:19)
[2020-05-01] MEDS: AMINO AC 3%/ELECTROLYTE/GLYCER 1,000 ML IV SCH (06:48)
[2020-05-01] MEDS: DEXAMETHASONE 4 MG TABLET PO SCH (07:59)
[2020-05-01] MEDS: INSULIN LISPRO 300 UNITS/3 ML VIAL. SQ SCH ×3 (08:00→17:00)
[2020-05-01 08:18] LABS: RED BLOOD COUNT 4.63 x10^6/uL (4.30-5.70); RED CELL DISTRIBUTION WIDTH 15.6 % (11.5-14.5); WHITE BLOOD COUNT 5.1 x10^3/uL (4.0-11.0)
[2020-05-01 08:35] LABS: CALCIUM 8.1 mg/dL (8.5-10.1); CREATININE 0.7 mg/dL (0.7-1.3); GFR 112.1; POTASSIUM 3.7 mmol/L (3.5-5.1)
[2020-05-01] MEDS: ENOXAPARIN 40 MG/0.4 ML SYRINGE. SQ SCH ×2 (08:51→21:14)
[2020-05-01] MEDS: THIAMINE 100 MG TABLET. PO SCH (08:51)
[2020-05-01] MEDS: ZINC SULFATE 220 MG CAPSULE. PO SCH (08:51)
[2020-05-01] MEDS: FAMOTIDINE 20 MG/2 ML VIAL IVP SCH ×2 (08:51→21:14)
[2020-05-01] MEDS: LACTOBACILLUS RHAMNOSUS GG 1 CAPSULE. PO SCH ×2 (08:51→21:14)
[2020-05-01 09:01] LABS: BASE EXCESS COOX 10 mmol/L (-3-3); HCO3 COOX 38 mmol/L (21-28); METHEMOGLOBIN 0.3 % (0.0-1.9); OXYHEMOGLOBIN 93.2 %; PO2 COOX 73 mmHg (65-108); SAT O2 COOX 94 % (92-99)
--- NOTE | 2020-05-01 09:43 | PDOC ---
PULMONARY PROGRESS NOTES DATE: 05/01/20 TIME: 09:40 Subjective Awake and alert remains on BIPAP, now improved no overnight concerns from nursing Vitals Vital Signs Date Time Temp Pulse Resp B/P (MAP) Pulse Ox O2 Delivery O2 Flow Rate FiO2 05/01/20 08:00 Bi-pap 05/01/20 08:00 97.4 56 25 128/77 (94) 93 97.4 05/01/20 07:12 40.0 Comments visual exam preformed RRR BIPAP no accessory muscle use no edema General: Alert Abdomen: Other (obese) Extremities: Other (trace edema) Labs Laboratory Tests Test 04/29/20 12:14 04/30/20 07:34 04/30/20 07:35 04/30/20 07:45 O2 Saturation 89 % (92-99) Arterial Blood pH 7.27 (7.35-7.45) Arterial Blood pCO2 at Patient Temp 78 mmHg (35-46) Arterial Blood pO2 at Patient Temp 59 mmHg (65-108) Arterial Blood HCO3 35 mmol/L (21-28) Arterial Blood Base Excess 5 mmol/L (-3-3) FiO2 40/bipap Glucose (Fingerstick) 87 mg/dL (70-99) Sodium Level 143 mmol/L (136-145) Potassium Level 4.2 mmol/L (3.5-5.1) Chloride Level 103 mmol/L (98-107) Carbon Dioxide Level 36 mmol/L (21-32) Anion Gap 4 (6-14) Blood Urea Nitrogen 31 mg/dL (8-26) Creatinine 0.8 mg/dL (0.7-1.3) Estimated GFR (Cockcroft-Gault) 96.1 BUN/Creatinine Ratio 39 (6-20) Glucose Level 85 mg/dL (70-99) Calcium Level 8.2 mg/dL (8.5-10.1) Total Bilirubin 0.6 mg/dL (0.2-1.0) Aspartate Amino Transf (AST/SGOT) 21 U/L (15-37) Alanine Aminotransferase (ALT/SGPT) 19 U/L (16-63) Alkaline Phosphatase 46 U/L (46-116) Total Protein 6.5 g/dL (6.4-8.2) Albumin 2.6 g/dL (3.4-5.0) Albumin/Globulin Ratio 0.7 (1.0-1.7) D-Dimer (Ania) 1.07 ug/mlFEU (0.00-0.50) Test 04/30/20 09:40 04/30/20 11:16 05/01/20 07:45 O2 Saturation 90 % (92-99) Arterial Blood pH 7.37 (7.35-7.45) Arterial Blood pCO2 at Patient Temp 69 mmHg (35-46) Arterial Blood pO2 at Patient Temp 59 mmHg (65-108) Arterial Blood HCO3 39 mmol/L (21-28) Arterial Blood Base Excess 10 mmol/L (-3-3) FiO2 50 Glucose (Fingerstick) 117 mg/dL (70-99) White Blood Count 5.1 x10^3/uL (4.0-11.0) Red Blood Count 4.63 x10^6/uL (4.30-5.70) Hemoglobin 14.0 g/dL (13.0-17.5) Hematocrit 42.0 % (39.0-53.0) Mean Corpuscular Volume 91 fL (79-100) Mean Corpuscular Hemoglobin 30 pg (25-35) Mean Corpuscular Hemoglobin Concent 33 g/dL (31-37) Red Cell Distribution Width 15.6 % (11.5-14.5) Platelet Count 168 x10^3/uL (140-400) Sodium Level 144 mmol/L (136-145) Potassium Level 3.7 mmol/L (3.5-5.1) Chloride Level 103 mmol/L (98-107) Carbon Dioxide Level 36 mmol/L (21-32) Anion Gap 5 (6-14) Blood Urea Nitrogen 23 mg/dL (8-26) Creatinine 0.7 mg/dL (0.7-1.3) Estimated GFR (Cockcroft-Gault) 112.1 Glucose Level 95 mg/dL (70-99) Calcium Level 8.1 mg/dL (8.5-10.1) Laboratory Tests Test 04/30/20 11:16 05/01/20 07:45 Glucose (Fingerstick) 117 mg/dL (70-99) White Blood Count 5.1 x10^3/uL (4.0-11.0) Red Blood Count 4.63 x10^6/uL (4.30-5.70) Hemoglobin 14.0 g/dL (13.0-17.5) Hematocrit 42.0 % (39.0-53.0) Mean Corpuscular Volume 91 fL (79-100) Mean Corpuscular Hemoglobin 30 pg (25-35) Mean Corpuscular Hemoglobin Concent 33 g/dL (31-37) Red Cell Distribution Width 15.6 % (11.5-14.5) Platelet Count 168 x10^3/uL (140-400) Sodium Level 144 mmol/L (136-145) Potassium Level 3.7 mmol/L (3.5-5.1) Chloride Level 103 mmol/L (98-107) Carbon Dioxide Level 36 mmol/L (21-32) Anion Gap 5 (6-14) Blood Urea Nitrogen 23 mg/dL (8-26) Creatinine 0.7 mg/dL (0.7-1.3) Estimated GFR (Cockcroft-Gault) 112.1 Glucose Level 95 mg/dL (70-99) Calcium Level 8.1 mg/dL (8.5-10.1) Medications Active Scripts Medications Dose Route/Sig Max Daily Dose Days Date Category Medrol (Methylprednisolone) 4 Mg Tab.ds.pk 1 Pkg PO UD 06/28/15 Reported Norvasc (Amlodipine Besylate) 5 Mg Tablet 1 Tab PO DAILY 06/22/15 Reported Proair Hfa Inhaler (Albuterol Sulfate) 8.5 Gm Hfa.aer.ad 1 Puff INH PRN Q6HRS PRN 06/22/15 Reported Advair 250-50 Diskus (Fluticasone/Salmeterol) 1 Each Disk.w.dev 1 Inh IH BID 06/22/15 Reported Singulair Tablet (Montelukast Sodium) 10 Mg Tablet 10 Mg PO HS 01/15/14 Reported Comments CXR IMPRESSION: 1. Multifocal interstitial and alveolar infiltrate with suspected partial left lower lobe consolidation. 2. Small bilateral pleural effusions. 3. Chronic cardiac silhouette and elevation of the right hemidiaphragm. Impression . 1. Acute on chronic hypercapnic/ hypoxemic respiratory failure. 2. Abnormal x-ray compatible with pneumonia, COVID-19. 3. COVID-19 viral pneumonia. 4. COVID-19 exposure. 5. Hypotension,---resolved 6. Asthma, mild in nature. The patient uses p.r.n. albuterol and Singulair. 7. Obesity. 8. Acute kidney injury---resolved Plan . Vapotherm during the day as tolerated Continue BIPAP at night ,Continue /, rate 24 at 60% Follow CXR/ABG Continue steroids for full ten day course Continue empiric ABX on Rocpehin and azithromycin Continue Remdesvir for full course Covid positive Continue bronchodilators Continue PPN for nutritional support DVT/GI PPX D/W RN and RT ANGELY LOWRY MD May 01, 2020 09:43
[2020-05-01 11:54] LABS: PCO2 COOX 67 mmHg (35-46)
[2020-05-01 12:14] LABS: BASE EXCESS ABG 8 mmol/L (-3-3); HCO3 ABG 36 mmol/L (21-28); PO2 ABG 64 mmHg (65-108); SAT O2 ABG 91 % (92-99)
[2020-05-01] MEDS: AZITHROMYCIN 250 MG in IV NORMAL SALINE 250ML 250 ML IV SCH (12:25)
[2020-05-01] MEDS: cefTRIAXone IV Push 1 GM VIAL. IVP SCH (13:08)
[2020-05-01 14:18] LABS: PCO2 ABG 68 mmHg (35-46)
--- NOTE | 2020-05-01 15:11 | PDOC ---
[facility] PROGRESS NOTE Date of Service DOS: DATE: 05/01/20 TIME: 15:08 Chief Complaint Chief Complaint A/P: Acute respiratory failure with hypoxia -likely COVID-19 related given recent exposure and O2 needs. Also with left lower lobe pneumonia likely gram- negative. Acute respiratory failure with hypercapnia - likely also COVID 19 related or COPD from his chronic asthma with retention Pneumonia - Multifocal interstitial and alveolar infiltrate with suspected partial left lower lobe consolidation. Will treat as gram negative Small bilateral pleural effusions - will monitor Hypotension - likely related to prolonged hypoxemia, sepsis from pneumonia, covid 19, will fluid challenge. HTN - hold amlodipine Asthma - moderate persistent by history, cont singulair, will order inhalers from pharmacy Obesity - counseled on weight management DOROTHEA - likely from vasomotor nephropathy, will hydrate, monitor renal function Sepsis - with leukopenia, RR elevated, will cont antibiotics and fluids FEN - General diet PPX - lovenox FULL CODE Dispo - Transfer to ICU on BIPAP History of Present Illness History of Present Illness Mr Bertrand is a 69yo M w/ PMHX chronic persistent asthma, HTN, esophageal strictures, low testosterone, prior portal vein thrombus who presents to the ED at the insistence of his stepson with c/o difficulty breathing, cough, fever for the last 5 days. Patient was exposed to a [id number] who had COVID-19 infection last week. He went to his doctor today, his oxygen saturation was 70% on room air in the clinic. Therefore he was brought here by his son for evaluation. He has been having difficulty sleeping due to his shortness of breath. O2 saturations 62% on arrival improved with 15L facemask O2.. EKG was done at 1027, heart rate 70 beats per minute, sinus rhythm, no ST seg ment elevation Chest radiograph with multifocal interstitial and alveolar infiltrate with suspected partial left lower lobe consolidation as well as small bilateral pleural effusions. Labs with WBC 3.9, Hb 14.1, platelets 171, albumin 3.3, trop 0, BNP 1082, Na 138, K 4.3, BUN 49, Cr 1.7, glucose 115. Admitted for further care. 04/28: Overnight a bit confused. ABG 7.1 / on 15 L. More short of breath 04/29: Patient was moved out of the ICU yesterday. Currently breathing on BiPAP, FiO2 50%. Afebrile, tachypneic. COVID-19 positive. Continue remdesivir, steroids, Rocephin, azithromycin, and supportive care. Cussed with RN. 04/30: Patient seen in ICU. Still breathing on BiPAP, FiO2 50%. Some hypokalemia today, will treat with Kayexalate and Lasix, as this will also help with bilateral pleural effusions. Continue remdesivir, steroids, antibiotics. 05/01: Afebrile, tachypneic, breathing on Vapotherm 40 L. Potassium improving, BUN improving. Last dose of remdesivir today. Continue steroids and antibiotics. Charts and labs reviewed. Vitals/I&O Vitals/I&O: Vital Signs Date Time Temp Pulse Resp B/P (MAP) Pulse Ox O2 Delivery O2 Flow Rate FiO2 05/01/20 14:00 65 39 169/91 (117) 94 Vapotherm 40.0 05/01/20 12:00 98.6 98.6 I & O 04/30/20 04/30/20 05/01/20 15:00 23:00 07:00 Intake Total 0 ml 180 ml 2005 ml Output Total 1450 ml 1150 ml 675 ml Balance -1450 ml -970 ml 1330 ml Physical Exam General: Alert, Cooperative, mild distress Heart: Regular rate Lungs: Other (Tachypneic) Abdomen: Normal bowel sounds, Soft, No masses Extremities: No clubbing, No cyanosis Skin: No rashes, No breakdown Labs Labs: Laboratory Tests Test 05/01/20 07:45 05/01/20 09:15 05/01/20 11:37 White Blood Count 5.1 x10^3/uL (4.0-11.0) Red Blood Count 4.63 x10^6/uL (4.30-5.70) Hemoglobin 14.0 g/dL (13.0-17.5) Hematocrit 42.0 % (39.0-53.0) Mean Corpuscular Volume 91 fL (79-100) Mean Corpuscular Hemoglobin 30 pg (25-35) Mean Corpuscular Hemoglobin Concent 33 g/dL (31-37) Red Cell Distribution Width 15.6 % (11.5-14.5) Platelet Count 168 x10^3/uL (140-400) Sodium Level 144 mmol/L (136-145) Potassium Level 3.7 mmol/L (3.5-5.1) Chloride Level 103 mmol/L (98-107) Carbon Dioxide Level 36 mmol/L (21-32) Anion Gap 5 (6-14) Blood Urea Nitrogen 23 mg/dL (8-26) Creatinine 0.7 mg/dL (0.7-1.3) Estimated GFR (Cockcroft-Gault) 112.1 Glucose Level 95 mg/dL (70-99) Calcium Level 8.1 mg/dL (8.5-10.1) O2 Saturation 94 % (92-99) 91 % (92-99) Arterial Blood pH 7.38 (7.35-7.45) 7.35 (7.35-7.45) Arterial Blood pCO2 at Patient Temp 67 mmHg (35-46) 68 mmHg (35-46) Arterial Blood pO2 at Patient Temp 73 mmHg (65-108) 64 mmHg (65-108) Arterial Blood HCO3 38 mmol/L (21-28) 36 mmol/L (21-28) Arterial Blood Base Excess 10 mmol/L (-3-3) 8 mmol/L (-3-3) Oxyhemoglobin 93.2 % Methemoglobin 0.3 % (0.0-1.9) Carbon Monoxide, Quantitative 0.4 % (0.0-1.9) FiO2 60% bipap 70% vapotherm Assessment and Plan Assessmemt and Plan Problems Medical Problems: (1) Pneumonia due to COVID-19 virus Status: Acute (2) Respiratory failure Status: Acute Comment Review of Relevant I have reviewed the following items ruby (where applicable) has been applied. Medications: Current Medications Medications (Trade) Dose Ordered Sig/Alondra Route PRN Reason Start Time Stop Time Status Last Admin Dose Admin Famotidine (Pepcid Vial) 20 mg BID IVP 05/01/20 09:00 05/01/20 08:51 Justifications for Admission Other Justification CAIT GORE MD May 01, 2020 15:11
[2020-05-01] MEDS: REMDESIVIR 100mg in NORMAL SALINE 250ML X 4 DAYS IV SCH (17:27)
[2020-05-01] MEDS: MONTELUKAST SODIUM 10 MG TABLET. PO SCH (21:14)
[2020-05-01] MEDS: ZOLPIDEM 5 MG TABLET. PO PRN (21:23)
[2020-05-02] VITALS (24 sets, daily range): BP systolic 84–167; BP diastolic 45–96
[2020-05-02] MEDS: AMINO AC 3%/ELECTROLYTE/GLYCER 1,000 ML IV SCH (05:39)
[2020-05-02] MEDS: MORPHINE SULFATE 4 MG/ML VIAL. IV PRN ×3 (06:11→19:37)
[2020-05-02] MEDS: DEXAMETHASONE 4 MG TABLET PO SCH (07:52)
[2020-05-02] MEDS: INSULIN LISPRO 300 UNITS/3 ML VIAL. SQ SCH ×3 (08:00→17:00)
[2020-05-02] MEDS: STERILE WATER for RESP 1,000 ML BAG. INH PRN (08:07)
[2020-05-02] MEDS: THIAMINE 100 MG TABLET. PO SCH (08:46)
[2020-05-02] MEDS: ZINC SULFATE 220 MG CAPSULE. PO SCH (08:46)
[2020-05-02] MEDS: ENOXAPARIN 40 MG/0.4 ML SYRINGE. SQ SCH ×2 (08:46→20:27)
[2020-05-02] MEDS: FAMOTIDINE 20 MG/2 ML VIAL IVP SCH ×2 (08:47→20:27)
[2020-05-02] MEDS: LACTOBACILLUS RHAMNOSUS GG 1 CAPSULE. PO SCH ×2 (08:47→20:26)
[2020-05-02] MEDS: NAPROXEN 500 MG TABLET PO PRN ×2 (09:05→12:08)
--- NOTE | 2020-05-02 09:50 | PDOC ---
PULMONARY PROGRESS NOTES DATE: 05/02/20 TIME: 09:45 Subjective Awake and alert remains on BIPAP,alternating with Vapotherm Vitals Vital Signs Date Time Temp Pulse Resp B/P (MAP) Pulse Ox O2 Delivery O2 Flow Rate FiO2 05/02/20 09:00 61 50 164/91 (115) 93 BiPAP/CPAP 05/02/20 08:06 40.0 05/02/20 08:00 98.5 98.5 Comments visual exam preformed RRR BIPAP no accessory muscle use no edema General: Alert, No acute distress Cardiovascular: S1 Labs Laboratory Tests Test 04/30/20 11:16 04/30/20 16:48 05/01/20 07:45 05/01/20 08:04 Glucose (Fingerstick) 117 mg/dL (70-99) 139 mg/dL (70-99) 98 mg/dL (70-99) White Blood Count 5.1 x10^3/uL (4.0-11.0) Red Blood Count 4.63 x10^6/uL (4.30-5.70) Hemoglobin 14.0 g/dL (13.0-17.5) Hematocrit 42.0 % (39.0-53.0) Mean Corpuscular Volume 91 fL (79-100) Mean Corpuscular Hemoglobin 30 pg (25-35) Mean Corpuscular Hemoglobin Concent 33 g/dL (31-37) Red Cell Distribution Width 15.6 % (11.5-14.5) Platelet Count 168 x10^3/uL (140-400) Sodium Level 144 mmol/L (136-145) Potassium Level 3.7 mmol/L (3.5-5.1) Chloride Level 103 mmol/L (98-107) Carbon Dioxide Level 36 mmol/L (21-32) Anion Gap 5 (6-14) Blood Urea Nitrogen 23 mg/dL (8-26) Creatinine 0.7 mg/dL (0.7-1.3) Estimated GFR (Cockcroft-Gault) 112.1 Glucose Level 95 mg/dL (70-99) Calcium Level 8.1 mg/dL (8.5-10.1) Test 05/01/20 09:15 05/01/20 11:32 05/01/20 11:37 05/01/20 17:07 O2 Saturation 94 % (92-99) 91 % (92-99) Arterial Blood pH 7.38 (7.35-7.45) 7.35 (7.35-7.45) Arterial Blood pCO2 at Patient Temp 67 mmHg (35-46) 68 mmHg (35-46) Arterial Blood pO2 at Patient Temp 73 mmHg (65-108) 64 mmHg (65-108) Arterial Blood HCO3 38 mmol/L (21-28) 36 mmol/L (21-28) Arterial Blood Base Excess 10 mmol/L (-3-3) 8 mmol/L (-3-3) Oxyhemoglobin 93.2 % Methemoglobin 0.3 % (0.0-1.9) Carbon Monoxide, Quantitative 0.4 % (0.0-1.9) FiO2 60% bipap 70% vapotherm Glucose (Fingerstick) 123 mg/dL (70-99) 129 mg/dL (70-99) Laboratory Tests Test 05/01/20 11:32 05/01/20 11:37 05/01/20 17:07 Glucose (Fingerstick) 123 mg/dL (70-99) 129 mg/dL (70-99) O2 Saturation 91 % (92-99) Arterial Blood pH 7.35 (7.35-7.45) Arterial Blood pCO2 at Patient Temp 68 mmHg (35-46) Arterial Blood pO2 at Patient Temp 64 mmHg (65-108) Arterial Blood HCO3 36 mmol/L (21-28) Arterial Blood Base Excess 8 mmol/L (-3-3) FiO2 70% vapotherm Medications Active Scripts Medications Dose Route/Sig Max Daily Dose Days Date Category Medrol (Methylprednisolone) 4 Mg Tab.ds.pk 1 Pkg PO UD 06/28/15 Reported Norvasc (Amlodipine Besylate) 5 Mg Tablet 1 Tab PO DAILY 06/22/15 Reported Proair Hfa Inhaler (Albuterol Sulfate) 8.5 Gm Hfa.aer.ad 1 Puff INH PRN Q6HRS PRN 06/22/15 Reported Advair 250-50 Diskus (Fluticasone/Salmeterol) 1 Each Disk.w.dev 1 Inh IH BID 06/22/15 Reported Singulair Tablet (Montelukast Sodium) 10 Mg Tablet 10 Mg PO HS 01/15/14 Reported Comments CXR IMPRESSION: 1. Multifocal interstitial and alveolar infiltrate with suspected partial left lower lobe consolidation. 2. Small bilateral pleural effusions. 3. Chronic cardiac silhouette and elevation of the right hemidiaphragm. Impression . 1. Acute on chronic hypercapnic/ hypoxemic respiratory failure. 2. Abnormal x-ray compatible with pneumonia, COVID-19. 3. COVID-19 viral pneumonia. 4. COVID-19 exposure. 5. Hypotension,---resolved 6. Asthma, mild in nature. The patient uses p.r.n. albuterol and Singulair. 7. Obesity. 8. Acute kidney injury---resolved Plan . Vapotherm during the day as tolerated Continue BIPAP at night ,Continue 26/6, rate 24 at 60% Follow CXR/ABG Continue steroids for full ten day course Continue empiric ABX on Rocpehin , DC azithromycin Continue Remdesvir for full course Covid positive Continue bronchodilators Continue PPN for nutritional support d/w son in detail. Prognosis explained. full code DVT/GI PPX D/W RN and RT ANGELY LOWRY MD May 02, 2020 09:50
--- NOTE | 2020-05-02 11:07 | PDOC ---
[facility] PROGRESS NOTE Date of Service DOS: DATE: 05/02/20 TIME: 11:04 Chief Complaint Chief Complaint A/P: Acute respiratory failure with hypoxia -likely COVID-19 related given recent exposure and O2 needs. Also with left lower lobe pneumonia likely gram- negative. Acute respiratory failure with hypercapnia - likely also COVID 19 related or COPD from his chronic asthma with retention Pneumonia - Multifocal interstitial and alveolar infiltrate with suspected partial left lower lobe consolidation. Will treat as gram negative Small bilateral pleural effusions - will monitor Hypotension - likely related to prolonged hypoxemia, sepsis from pneumonia, covid 19, will fluid challenge. HTN - hold amlodipine Asthma - moderate persistent by history, cont singulair, will order inhalers from pharmacy Obesity - counseled on weight management DOROTHEA - likely from vasomotor nephropathy, will hydrate, monitor renal function Sepsis - with leukopenia, RR elevated, will cont antibiotics and fluids FEN - General diet PPX - lovenox FULL CODE Dispo - Transfer to ICU on BIPAP History of Present Illness History of Present Illness Mr Bertrand is a 69yo M w/ PMHX chronic persistent asthma, HTN, esophageal strictures, low testosterone, prior portal vein thrombus who presents to the ED at the insistence of his stepson with c/o difficulty breathing, cough, fever for the last 5 days. Patient was exposed to a nlycfsja-lt-eay who had COVID-19 infection last week. He went to his doctor today, his oxygen saturation was 70% on room air in the clinic. Therefore he was brought here by his son for evaluation. He has been having difficulty sleeping due to his shortness of breath. O2 saturations 62% on arrival improved with 15L facemask O2.. EKG was done at 1027, heart rate 70 beats per minute, sinus rhythm, no ST seg ment elevation Chest radiograph with multifocal interstitial and alveolar infiltrate with suspected partial left lower lobe consolidation as well as small bilateral pleural effusions. Labs with WBC 3.9, Hb 14.1, platelets 171, albumin 3.3, trop 0, BNP 1082, Na 138, K 4.3, BUN 49, Cr 1.7, glucose 115. Admitted for further care. 04/28: Overnight a bit confused. ABG 7.1 / on 15 L. More short of breath 04/29: Patient was moved out of the ICU yesterday. Currently breathing on BiPAP, FiO2 50%. Afebrile, tachypneic. COVID-19 positive. Continue remdesivir, steroids, Rocephin, azithromycin, and supportive care. Cussed with RN. 04/30: Patient seen in ICU. Still breathing on BiPAP, FiO2 50%. Some hypokalemia today, will treat with Kayexalate and Lasix, as this will also help with bilateral pleural effusions. Continue remdesivir, steroids, antibiotics. 05/01: Afebrile, tachypneic, breathing on Vapotherm 40 L. Potassium improving, BUN improving. Last dose of remdesivir today. Continue steroids and antibiotics. Charts and labs reviewed. 05/02: Patient seen in COVID-19 ICU. Completed remdesivir. Afebrile. Currently breathing on 40 L Vapotherm. Continue steroids antibiotics, supportive care. No acute events overnight, discussed with RN. Vitals/I&O Vitals/I&O: Vital Signs Date Time Temp Pulse Resp B/P (MAP) Pulse Ox O2 Delivery O2 Flow Rate FiO2 05/02/20 10:46 90 VAPOTHERM 40.0 05/02/20 10:00 61 40 154/85 (108) 05/02/20 08:00 98.5 98.5 I & O 05/01/20 05/01/20 05/02/20 15:00 23:00 07:00 Intake Total 650 ml 1149 ml 75 ml Output Total 900 ml 500 ml Balance -250 ml 649 ml 75 ml Physical Exam General: Alert, Cooperative, mild distress Heart: Regular rate Abdomen: Normal bowel sounds, Soft, No masses Extremities: No clubbing, No cyanosis Skin: No rashes, No breakdown Labs Labs: Laboratory Tests Test 05/01/20 11:32 05/01/20 11:37 05/01/20 17:07 05/01/20 21:27 Glucose (Fingerstick) 123 mg/dL (70-99) 129 mg/dL (70-99) 101 mg/dL (70-99) O2 Saturation 91 % (92-99) Arterial Blood pH 7.35 (7.35-7.45) Arterial Blood pCO2 at Patient Temp 68 mmHg (35-46) Arterial Blood pO2 at Patient Temp 64 mmHg (65-108) Arterial Blood HCO3 36 mmol/L (21-28) Arterial Blood Base Excess 8 mmol/L (-3-3) FiO2 70% vapotherm Test 05/02/20 07:56 Glucose (Fingerstick) 81 mg/dL (70-99) Assessment and Plan Assessmemt and Plan Problems Medical Problems: (1) Pneumonia due to COVID-19 virus Status: Acute (2) Respiratory failure Status: Acute Comment Review of Relevant I have reviewed the following items ruby (where applicable) has been applied. Justifications for Admission Other Justification CAIT GORE MD May 02, 2020 11:07
[2020-05-02] MEDS: cefTRIAXone IV Push 1 GM VIAL. IVP SCH (12:32)
[2020-05-02] MEDS: MONTELUKAST SODIUM 10 MG TABLET. PO SCH (20:26)
[2020-05-02] MEDS: ZOLPIDEM 5 MG TABLET. PO PRN (22:37)
[2020-05-03] VITALS (24 sets, daily range): BP systolic 87–140; BP diastolic 48–85
[2020-05-03] MEDS: AMINO AC 3%/ELECTROLYTE/GLYCER 1,000 ML IV SCH ×2 (02:04→22:21)
[2020-05-03] MEDS: MORPHINE SULFATE 4 MG/ML VIAL. IV PRN ×4 (03:47→22:21)
[2020-05-03 05:35] LABS: CALCIUM 8.6 mg/dL (8.5-10.1); CREATININE 0.8 mg/dL (0.7-1.3); GFR 96.1; POTASSIUM 3.8 mmol/L (3.5-5.1)
[2020-05-03 05:47] LABS: BASO % 0 % (0-3); EOS # 0.1 x10^3/uL (0.0-0.7); EOS % 3 % (0-3); HEMATOCRIT 40.4 % (39.0-53.0); HEMOGLOBIN 13.2 g/dL (13.0-17.5); LYMPH # 0.4 x10^3/uL (1.0-4.8); LYMPH % 8 % (24-48); MEAN CORPUSCULAR HEMOGLOBIN 30 pg (25-35); MEAN CORPUSCULAR HGB CONC 33 g/dL (31-37); MEAN CORPUSCULAR VOLUME 90 fL (79-100); MONO # 0.2 x10^3/uL (0.0-1.1); MONO % 4 % (0-9); NEUT # 4.2 x10^3/uL (1.8-7.7); NEUT % 85 % (31-73); PLATELET COUNT 194 x10^3/uL (140-400); RED BLOOD COUNT 4.47 x10^6/uL (4.30-5.70); RED CELL DISTRIBUTION WIDTH 15.2 % (11.5-14.5)
[2020-05-03] MEDS: INSULIN LISPRO 300 UNITS/3 ML VIAL. SQ SCH ×3 (07:47→17:00)
[2020-05-03] MEDS: ZINC SULFATE 220 MG CAPSULE. PO SCH (08:13)
[2020-05-03] MEDS: DEXAMETHASONE 4 MG TABLET PO SCH (08:13)
[2020-05-03] MEDS: LACTOBACILLUS RHAMNOSUS GG 1 CAPSULE. PO SCH ×2 (08:13→22:22)
[2020-05-03] MEDS: FAMOTIDINE 20 MG/2 ML VIAL IVP SCH ×2 (08:13→22:20)
[2020-05-03] MEDS: THIAMINE 100 MG TABLET. PO SCH (08:13)
[2020-05-03] MEDS: ENOXAPARIN 40 MG/0.4 ML SYRINGE. SQ SCH ×2 (08:14→22:20)
[2020-05-03 09:31] LABS: BASE EXCESS ABG 8 mmol/L (-3-3); HCO3 ABG 36 mmol/L (21-28); PO2 ABG 60 mmHg (65-108); SAT O2 ABG 89 % (92-99)
[2020-05-03 09:35] LABS: FIO2 ABG 80/vapo; PCO2 ABG 68 mmHg (35-46)
--- NOTE | 2020-05-03 09:50 | PDOC ---
[facility] [facility] PROGRESS NOTE Date of Service DOS: DATE: 05/03/20 TIME: 09:49 Chief Complaint Chief Complaint A/P: Acute respiratory failure with hypoxia -likely COVID-19 related given recent exposure and O2 needs. Also with left lower lobe pneumonia likely gram- negative. Acute respiratory failure with hypercapnia - likely also COVID 19 related or COPD from his chronic asthma with retention Pneumonia - Multifocal interstitial and alveolar infiltrate with suspected partial left lower lobe consolidation. Will treat as gram negative Small bilateral pleural effusions - will monitor Hypotension - likely related to prolonged hypoxemia, sepsis from pneumonia, covid 19, will fluid challenge. HTN - hold amlodipine Asthma - moderate persistent by history, cont singulair, will order inhalers from pharmacy Obesity - counseled on weight management DOROTHEA - likely from vasomotor nephropathy, will hydrate, monitor renal function Sepsis - with leukopenia, RR elevated, will cont antibiotics and fluids FEN - General diet PPX - lovenox FULL CODE Dispo - Transfer to ICU on BIPAP History of Present Illness History of Present Illness Mr Bertrand is a 69yo M w/ PMHX chronic persistent asthma, HTN, esophageal strictures, low testosterone, prior portal vein thrombus who presents to the ED at the insistence of his stepson with c/o difficulty breathing, cough, fever for the last 5 days. Patient was exposed to a gzwgkjed-kg-qkm who had COVID-19 infection last week. He went to his doctor today, his oxygen saturation was 70% on room air in the clinic. Therefore he was brought here by his son for evaluation. He has been having difficulty sleeping due to his shortness of breath. O2 saturations 62% on arrival improved with 15L facemask O2.. EKG was done at 1027, heart rate 70 beats per minute, sinus rhythm, no ST se gment elevation Chest radiograph with multifocal interstitial and alveolar infiltrate with suspected partial left lower lobe consolidation as well as small bilateral pleural effusions. Labs with WBC 3.9, Hb 14.1, platelets 171, albumin 3.3, trop 0, BNP 1082, Na 138, K 4.3, BUN 49, Cr 1.7, glucose 115. Admitted for further care. 04/28: Overnight a bit confused. ABG 7.1 on 15 L. More short of breath 04/29: Patient was moved out of the ICU yesterday. Currently breathing on BiPAP, FiO2 50%. Afebrile, tachypneic. COVID-19 positive. Continue remdesivir, steroids, Rocephin, azithromycin, and supportive care. Cussed with RN. 04/30: Patient seen in ICU. Still breathing on BiPAP, FiO2 50%. Some hypokalemia today, will treat with Kayexalate and Lasix, as this will also help with bilateral pleural effusions. Continue remdesivir, steroids, antibiotics. 05/01: Afebrile, tachypneic, breathing on Vapotherm 40 L. Potassium improving, BUN improving. Last dose of remdesivir today. Continue steroids and antibiotics. Charts and labs reviewed. 05/02: Patient seen in [place] [id number] ICU. Completed remdesivir. Afebrile. Currently breathing on 40 L Vapotherm. Continue steroids antibiotics, supportive care. No acute events overnight, discussed with RN. 05/03: Patient seen in [place] [address] ICU. He is breathing on BiPAP, FiO2 60%. He denies any chest pain or nausea. He is completed remdesivir and azithromycin treatments. Continue Rocephin. Discussed with RN, no acute events overnight. Vitals/I&O Vitals/I&O: Vital Signs Date Time Temp Pulse Resp B/P (MAP) Pulse Ox O2 Delivery O2 Flow Rate FiO2 05/03/20 09:44 96 BiPAP/CPAP 05/03/20 09:00 53 28 96/54 (68) 40.0 05/03/20 07:00 97.0 97.0 I & O 05/02/20 05/02/20 05/03/20 14:59 22:59 06:59 Intake Total 100 ml 1103 ml 200 ml Output Total 1010 ml 400 ml 365 ml Balance -910 ml 703 ml -165 ml Physical Exam General: Alert, Cooperative, mild distress Heart: Regular rate Abdomen: Normal bowel sounds, Soft, No masses Extremities: No clubbing, No cyanosis Skin: No rashes, No breakdown Labs Labs: Laboratory Tests Test 05/02/20 11:58 05/02/20 16:35 05/03/20 05:00 05/03/20 07:30 Glucose (Fingerstick) 105 mg/dL (70-99) 109 mg/dL (70-99) 92 mg/dL (70-99) White Blood Count 5.0 x10^3/uL (4.0-11.0) Red Blood Count 4.47 x10^6/uL (4.30-5.70) Hemoglobin 13.2 g/dL (13.0-17.5) Hematocrit 40.4 % (39.0-53.0) Mean Corpuscular Volume 90 fL (79-100) Mean Corpuscular Hemoglobin 30 pg (25-35) Mean Corpuscular Hemoglobin Concent 33 g/dL (31-37) Red Cell Distribution Width 15.2 % (11.5-14.5) Platelet Count 194 x10^3/uL (140-400) Neutrophils (%) (Auto) 85 % (31-73) Lymphocytes (%) (Auto) 8 % (24-48) Monocytes (%) (Auto) 4 % (0-9) Eosinophils (%) (Auto) 3 % (0-3) Basophils (%) (Auto) 0 % (0-3) Neutrophils # (Auto) 4.2 x10^3/uL (1.8-7.7) Lymphocytes # (Auto) 0.4 x10^3/uL (1.0-4.8) Monocytes # (Auto) 0.2 x10^3/uL (0.0-1.1) Eosinophils # (Auto) 0.1 x10^3/uL (0.0-0.7) Basophils # (Auto) 0.0 x10^3/uL (0.0-0.2) Sodium Level 139 mmol/L (136-145) Potassium Level 3.8 mmol/L (3.5-5.1) Chloride Level 102 mmol/L (98-107) Carbon Dioxide Level 36 mmol/L (21-32) Anion Gap 1 (6-14) Blood Urea Nitrogen 25 mg/dL (8-26) Creatinine 0.8 mg/dL (0.7-1.3) Estimated GFR (Cockcroft-Gault) 96.1 Glucose Level 84 mg/dL (70-99) Calcium Level 8.6 mg/dL (8.5-10.1) Test 05/03/20 09:00 O2 Saturation 89 % (92-99) Arterial Blood pH 7.34 (7.35-7.45) Arterial Blood pCO2 at Patient Temp 68 mmHg (35-46) Arterial Blood pO2 at Patient Temp 60 mmHg (65-108) Arterial Blood HCO3 36 mmol/L (21-28) Arterial Blood Base Excess 8 mmol/L (-3-3) FiO2 80/vapo Assessment and Plan Assessmemt and Plan Problems Medical Problems: (1) Pneumonia due to COVID-19 virus Status: Acute (2) Respiratory failure Status: Acute Comment Review of Relevant I have reviewed the following items ruby (where applicable) has been applied. Justifications for Admission Other Justification CAIT GORE MD May 03, 2020 09:50
--- NOTE | 2020-05-03 10:09 | PDOC ---
PULMONARY PROGRESS NOTES DATE: 05/03/20 TIME: 10:08 Subjective Awake and alert remains on BIPAP,alternating with Vapotherm Vitals Vital Signs Date Time Temp Pulse Resp B/P (MAP) Pulse Ox O2 Delivery O2 Flow Rate FiO2 05/03/20 09:48 96 40.0 05/03/20 09:44 BiPAP/CPAP 05/03/20 09:00 53 28 96/54 (68) 05/03/20 07:00 97.0 97.0 Comments visual exam preformed RRR BIPAP no accessory muscle use no edema General: Alert, No acute distress Labs Laboratory Tests Test 05/01/20 11:32 05/01/20 11:37 05/01/20 17:07 05/01/20 21:27 Glucose (Fingerstick) 123 mg/dL (70-99) 129 mg/dL (70-99) 101 mg/dL (70-99) O2 Saturation 91 % (92-99) Arterial Blood pH 7.35 (7.35-7.45) Arterial Blood pCO2 at Patient Temp 68 mmHg (35-46) Arterial Blood pO2 at Patient Temp 64 mmHg (65-108) Arterial Blood HCO3 36 mmol/L (21-28) Arterial Blood Base Excess 8 mmol/L (-3-3) FiO2 70% vapotherm Test 05/02/20 07:56 05/02/20 11:58 05/02/20 16:35 05/03/20 05:00 Glucose (Fingerstick) 81 mg/dL (70-99) 105 mg/dL (70-99) 109 mg/dL (70-99) White Blood Count 5.0 x10^3/uL (4.0-11.0) Red Blood Count 4.47 x10^6/uL (4.30-5.70) Hemoglobin 13.2 g/dL (13.0-17.5) Hematocrit 40.4 % (39.0-53.0) Mean Corpuscular Volume 90 fL (79-100) Mean Corpuscular Hemoglobin 30 pg (25-35) Mean Corpuscular Hemoglobin Concent 33 g/dL (31-37) Red Cell Distribution Width 15.2 % (11.5-14.5) Platelet Count 194 x10^3/uL (140-400) Neutrophils (%) (Auto) 85 % (31-73) Lymphocytes (%) (Auto) 8 % (24-48) Monocytes (%) (Auto) 4 % (0-9) Eosinophils (%) (Auto) 3 % (0-3) Basophils (%) (Auto) 0 % (0-3) Neutrophils # (Auto) 4.2 x10^3/uL (1.8-7.7) Lymphocytes # (Auto) 0.4 x10^3/uL (1.0-4.8) Monocytes # (Auto) 0.2 x10^3/uL (0.0-1.1) Eosinophils # (Auto) 0.1 x10^3/uL (0.0-0.7) Basophils # (Auto) 0.0 x10^3/uL (0.0-0.2) Sodium Level 139 mmol/L (136-145) Potassium Level 3.8 mmol/L (3.5-5.1) Chloride Level 102 mmol/L (98-107) Carbon Dioxide Level 36 mmol/L (21-32) Anion Gap 1 (6-14) Blood Urea Nitrogen 25 mg/dL (8-26) Creatinine 0.8 mg/dL (0.7-1.3) Estimated GFR (Cockcroft-Gault) 96.1 Glucose Level 84 mg/dL (70-99) Calcium Level 8.6 mg/dL (8.5-10.1) Test 05/03/20 07:30 05/03/20 09:00 Glucose (Fingerstick) 92 mg/dL (70-99) O2 Saturation 89 % (92-99) Arterial Blood pH 7.34 (7.35-7.45) Arterial Blood pCO2 at Patient Temp 68 mmHg (35-46) Arterial Blood pO2 at Patient Temp 60 mmHg (65-108) Arterial Blood HCO3 36 mmol/L (21-28) Arterial Blood Base Excess 8 mmol/L (-3-3) FiO2 80/vapo Laboratory Tests Test 05/02/20 11:58 05/02/20 16:35 05/03/20 05:00 05/03/20 07:30 Glucose (Fingerstick) 105 mg/dL (70-99) 109 mg/dL (70-99) 92 mg/dL (70-99) White Blood Count 5.0 x10^3/uL (4.0-11.0) Red Blood Count 4.47 x10^6/uL (4.30-5.70) Hemoglobin 13.2 g/dL (13.0-17.5) Hematocrit 40.4 % (39.0-53.0) Mean Corpuscular Volume 90 fL (79-100) Mean Corpuscular Hemoglobin 30 pg (25-35) Mean Corpuscular Hemoglobin Concent 33 g/dL (31-37) Red Cell Distribution Width 15.2 % (11.5-14.5) Platelet Count 194 x10^3/uL (140-400) Neutrophils (%) (Auto) 85 % (31-73) Lymphocytes (%) (Auto) 8 % (24-48) Monocytes (%) (Auto) 4 % (0-9) Eosinophils (%) (Auto) 3 % (0-3) Basophils (%) (Auto) 0 % (0-3) Neutrophils # (Auto) 4.2 x10^3/uL (1.8-7.7) Lymphocytes # (Auto) 0.4 x10^3/uL (1.0-4.8) Monocytes # (Auto) 0.2 x10^3/uL (0.0-1.1) Eosinophils # (Auto) 0.1 x10^3/uL (0.0-0.7) Basophils # (Auto) 0.0 x10^3/uL (0.0-0.2) Sodium Level 139 mmol/L (136-145) Potassium Level 3.8 mmol/L (3.5-5.1) Chloride Level 102 mmol/L (98-107) Carbon Dioxide Level 36 mmol/L (21-32) Anion Gap 1 (6-14) Blood Urea Nitrogen 25 mg/dL (8-26) Creatinine 0.8 mg/dL (0.7-1.3) Estimated GFR (Cockcroft-Gault) 96.1 Glucose Level 84 mg/dL (70-99) Calcium Level 8.6 mg/dL (8.5-10.1) Test 05/03/20 09:00 O2 Saturation 89 % (92-99) Arterial Blood pH 7.34 (7.35-7.45) Arterial Blood pCO2 at Patient Temp 68 mmHg (35-46) Arterial Blood pO2 at Patient Temp 60 mmHg (65-108) Arterial Blood HCO3 36 mmol/L (21-28) Arterial Blood Base Excess 8 mmol/L (-3-3) FiO2 80/vapo Medications Active Scripts Medications Dose Route/Sig Max Daily Dose Days Date Category Medrol (Methylprednisolone) 4 Mg Tab.ds.pk 1 Pkg PO UD 06/28/15 Reported Norvasc (Amlodipine Besylate) 5 Mg Tablet 1 Tab PO DAILY 06/22/15 Reported Proair Hfa Inhaler (Albuterol Sulfate) 8.5 Gm Hfa.aer.ad 1 Puff INH PRN Q6HRS PRN 06/22/15 Reported Advair 250-50 Diskus (Fluticasone/Salmeterol) 1 Each Disk.w.dev 1 Inh IH BID 06/22/15 Reported Singulair Tablet (Montelukast Sodium) 10 Mg Tablet 10 Mg PO HS 01/15/14 Reported Comments CXR IMPRESSION: 1. Multifocal interstitial and alveolar infiltrate with suspected partial left lower lobe consolidation. 2. Small bilateral pleural effusions. 3. Chronic cardiac silhouette and elevation of the right hemidiaphragm. Impression . 1. Acute on chronic hypercapnic/ hypoxemic respiratory failure. 2. Abnormal x-ray compatible with pneumonia, COVID-19. 3. COVID-19 viral pneumonia. 4. COVID-19 exposure. 5. Hypotension,---resolved 6. Asthma, mild in nature. The patient uses p.r.n. albuterol and Singulair. 7. Obesity. 8. Acute kidney injury---resolved Plan . Vapotherm during the day as tolerated Continue BIPAP at night and PRN ,Continue 17/10, rate 24 at 80% Follow CXR/ABG Continue steroids for full ten day course Continue empiric ABX on Rocpehin , DC azithromycin Continue Remdesvir for full course Covid positive Continue bronchodilators Continue PPN for nutritional support d/w son in detail. Prognosis explained. full code DVT/GI PPX D/W RN and RT ANGELY LOWRY MD May 03, 2020 10:09
[2020-05-03] MEDS: cefTRIAXone IV Push 1 GM VIAL. IVP SCH (13:06)
[2020-05-03] MEDS: MONTELUKAST SODIUM 10 MG TABLET. PO SCH (22:20)
[2020-05-03] MEDS: ZOLPIDEM 5 MG TABLET. PO PRN (22:20)
[2020-05-04] VITALS (25 sets, daily range): BP systolic 110–150; BP diastolic 59–84
[2020-05-04] MEDS: MORPHINE SULFATE 4 MG/ML VIAL. IV PRN ×4 (06:34→19:49)
[2020-05-04] MEDS: INSULIN LISPRO 300 UNITS/3 ML VIAL. SQ SCH ×3 (08:00→17:00)
--- NOTE | 2020-05-04 08:03 | RAD ---
XR CHEST 1V INDICATION: Pneumonia ICU#107 COMPARISON STUDY: 04/27/2020. FINDINGS: Lungs: Elevation of the right hemidiaphragm. Low lung volume. Stable patchy bilateral opacities. Kelly stinct pulmonary vasculature. Pleura: Stable small bilateral pleural effusions. Heart and Mediastinum: Stable cardiomediastinal silhouette and great vessels. IMPRESSION: 1. Stable patchy bilateral opacities. 2. Stable small bilateral pleural effusions. Electronically signed by: Jason Paredes MD (05/04/2020 7:42 AM) [id number]
[2020-05-04] MEDS: THIAMINE 100 MG TABLET. PO SCH (08:26)
[2020-05-04] MEDS: FAMOTIDINE 20 MG/2 ML VIAL IVP SCH ×2 (08:26→20:50)
[2020-05-04] MEDS: LACTOBACILLUS RHAMNOSUS GG 1 CAPSULE. PO SCH ×2 (08:26→20:50)
[2020-05-04] MEDS: DEXAMETHASONE 4 MG TABLET PO SCH (08:26)
[2020-05-04] MEDS: ZINC SULFATE 220 MG CAPSULE. PO SCH (08:26)
[2020-05-04] MEDS: ENOXAPARIN 40 MG/0.4 ML SYRINGE. SQ SCH ×2 (08:27→20:50)
[2020-05-04 09:25] LABS: BASO % 0 % (0-3); EOS # 0.2 x10^3/uL (0.0-0.7); EOS % 3 % (0-3); HEMOGLOBIN 13.3 g/dL (13.0-17.5); LYMPH # 0.5 x10^3/uL (1.0-4.8); LYMPH % 9 % (24-48); MEAN CORPUSCULAR HEMOGLOBIN 30 pg (25-35); MEAN CORPUSCULAR HGB CONC 33 g/dL (31-37); MEAN CORPUSCULAR VOLUME 90 fL (79-100); MONO # 0.3 x10^3/uL (0.0-1.1); MONO % 6 % (0-9); NEUT # 4.6 x10^3/uL (1.8-7.7); NEUT % 82 % (31-73); PLATELET COUNT 208 x10^3/uL (140-400); RED BLOOD COUNT 4.44 x10^6/uL (4.30-5.70); RED CELL DISTRIBUTION WIDTH 15.2 % (11.5-14.5); WHITE BLOOD COUNT 5.7 x10^3/uL (4.0-11.0)
[2020-05-04 09:37] LABS: CALCIUM 8.8 mg/dL (8.5-10.1); CREATININE 0.9 mg/dL (0.7-1.3); GFR 83.9; POTASSIUM 4.9 mmol/L (3.5-5.1)
--- NOTE | 2020-05-04 10:40 | PDOC ---
PULMONARY PROGRESS NOTES DATE: 05/04/20 TIME: 10:27 Subjective Awake and alert remains on BIPAP and alternating Vapotherm no overnight events Vitals Vital Signs Date Time Temp Pulse Resp B/P (MAP) Pulse Ox O2 Delivery O2 Flow Rate FiO2 05/04/20 10:07 24 95 vapotherm 05/04/20 10:00 55 125/78 (94) 05/04/20 09:05 35.0 05/04/20 07:00 97.2 97.2 Comments visual exam preformed RRR BIPAP or Vapotherm no accessory muscle use no edema General: Alert, No acute distress Labs Laboratory Tests Test 05/02/20 11:58 05/02/20 16:35 05/03/20 05:00 05/03/20 07:30 Glucose (Fingerstick) 105 mg/dL (70-99) 109 mg/dL (70-99) 92 mg/dL (70-99) White Blood Count 5.0 x10^3/uL (4.0-11.0) Red Blood Count 4.47 x10^6/uL (4.30-5.70) Hemoglobin 13.2 g/dL (13.0-17.5) Hematocrit 40.4 % (39.0-53.0) Mean Corpuscular Volume 90 fL (79-100) Mean Corpuscular Hemoglobin 30 pg (25-35) Mean Corpuscular Hemoglobin Concent 33 g/dL (31-37) Red Cell Distribution Width 15.2 % (11.5-14.5) Platelet Count 194 x10^3/uL (140-400) Neutrophils (%) (Auto) 85 % (31-73) Lymphocytes (%) (Auto) 8 % (24-48) Monocytes (%) (Auto) 4 % (0-9) Eosinophils (%) (Auto) 3 % (0-3) Basophils (%) (Auto) 0 % (0-3) Neutrophils # (Auto) 4.2 x10^3/uL (1.8-7.7) Lymphocytes # (Auto) 0.4 x10^3/uL (1.0-4.8) Monocytes # (Auto) 0.2 x10^3/uL (0.0-1.1) Eosinophils # (Auto) 0.1 x10^3/uL (0.0-0.7) Basophils # (Auto) 0.0 x10^3/uL (0.0-0.2) Sodium Level 139 mmol/L (136-145) Potassium Level 3.8 mmol/L (3.5-5.1) Chloride Level 102 mmol/L (98-107) Carbon Dioxide Level 36 mmol/L (21-32) Anion Gap 1 (6-14) Blood Urea Nitrogen 25 mg/dL (8-26) Creatinine 0.8 mg/dL (0.7-1.3) Estimated GFR (Cockcroft-Gault) 96.1 Glucose Level 84 mg/dL (70-99) Calcium Level 8.6 mg/dL (8.5-10.1) Test 05/03/20 09:00 05/03/20 11:24 05/03/20 17:11 05/03/20 20:43 O2 Saturation 89 % (92-99) Arterial Blood pH 7.34 (7.35-7.45) Arterial Blood pCO2 at Patient Temp 68 mmHg (35-46) Arterial Blood pO2 at Patient Temp 60 mmHg (65-108) Arterial Blood HCO3 36 mmol/L (21-28) Arterial Blood Base Excess 8 mmol/L (-3-3) FiO2 80/vapo Glucose (Fingerstick) 99 mg/dL (70-99) 117 mg/dL (70-99) 108 mg/dL (70-99) Test 05/04/20 08:19 05/04/20 08:50 Glucose (Fingerstick) 89 mg/dL (70-99) White Blood Count 5.7 x10^3/uL (4.0-11.0) Red Blood Count 4.44 x10^6/uL (4.30-5.70) Hemoglobin 13.3 g/dL (13.0-17.5) Hematocrit 40.0 % (39.0-53.0) Mean Corpuscular Volume 90 fL (79-100) Mean Corpuscular Hemoglobin 30 pg (25-35) Mean Corpuscular Hemoglobin Concent 33 g/dL (31-37) Red Cell Distribution Width 15.2 % (11.5-14.5) Platelet Count 208 x10^3/uL (140-400) Neutrophils (%) (Auto) 82 % (31-73) Lymphocytes (%) (Auto) 9 % (24-48) Monocytes (%) (Auto) 6 % (0-9) Eosinophils (%) (Auto) 3 % (0-3) Basophils (%) (Auto) 0 % (0-3) Neutrophils # (Auto) 4.6 x10^3/uL (1.8-7.7) Lymphocytes # (Auto) 0.5 x10^3/uL (1.0-4.8) Monocytes # (Auto) 0.3 x10^3/uL (0.0-1.1) Eosinophils # (Auto) 0.2 x10^3/uL (0.0-0.7) Basophils # (Auto) 0.0 x10^3/uL (0.0-0.2) Sodium Level 142 mmol/L (136-145) Potassium Level 4.9 mmol/L (3.5-5.1) Chloride Level 102 mmol/L (98-107) Carbon Dioxide Level 36 mmol/L (21-32) Anion Gap 4 (6-14) Blood Urea Nitrogen 22 mg/dL (8-26) Creatinine 0.9 mg/dL (0.7-1.3) Estimated GFR (Cockcroft-Gault) 83.9 Glucose Level 75 mg/dL (70-99) Calcium Level 8.8 mg/dL (8.5-10.1) Laboratory Tests Test 05/03/20 11:24 05/03/20 17:11 05/03/20 20:43 05/04/20 08:19 Glucose (Fingerstick) 99 mg/dL (70-99) 117 mg/dL (70-99) 108 mg/dL (70-99) 89 mg/dL (70-99) Test 05/04/20 08:50 White Blood Count 5.7 x10^3/uL (4.0-11.0) Red Blood Count 4.44 x10^6/uL (4.30-5.70) Hemoglobin 13.3 g/dL (13.0-17.5) Hematocrit 40.0 % (39.0-53.0) Mean Corpuscular Volume 90 fL (79-100) Mean Corpuscular Hemoglobin 30 pg (25-35) Mean Corpuscular Hemoglobin Concent 33 g/dL (31-37) Red Cell Distribution Width 15.2 % (11.5-14.5) Platelet Count 208 x10^3/uL (140-400) Neutrophils (%) (Auto) 82 % (31-73) Lymphocytes (%) (Auto) 9 % (24-48) Monocytes (%) (Auto) 6 % (0-9) Eosinophils (%) (Auto) 3 % (0-3) Basophils (%) (Auto) 0 % (0-3) Neutrophils # (Auto) 4.6 x10^3/uL (1.8-7.7) Lymphocytes # (Auto) 0.5 x10^3/uL (1.0-4.8) Monocytes # (Auto) 0.3 x10^3/uL (0.0-1.1) Eosinophils # (Auto) 0.2 x10^3/uL (0.0-0.7) Basophils # (Auto) 0.0 x10^3/uL (0.0-0.2) Sodium Level 142 mmol/L (136-145) Potassium Level 4.9 mmol/L (3.5-5.1) Chloride Level 102 mmol/L (98-107) Carbon Dioxide Level 36 mmol/L (21-32) Anion Gap 4 (6-14) Blood Urea Nitrogen 22 mg/dL (8-26) Creatinine 0.9 mg/dL (0.7-1.3) Estimated GFR (Cockcroft-Gault) 83.9 Glucose Level 75 mg/dL (70-99) Calcium Level 8.8 mg/dL (8.5-10.1) Medications Active Scripts Medications Dose Route/Sig Max Daily Dose Days Date Category Medrol (Methylprednisolone) 4 Mg Tab.ds.pk 1 Pkg PO UD 06/28/15 Reported Norvasc (Amlodipine Besylate) 5 Mg Tablet 1 Tab PO DAILY 06/22/15 Reported Proair Hfa Inhaler (Albuterol Sulfate) 8.5 Gm Hfa.aer.ad 1 Puff INH PRN Q6HRS PRN 06/22/15 Reported Advair 250-50 Diskus (Fluticasone/Salmeterol) 1 Each Disk.w.dev 1 Inh IH BID 06/22/15 Reported Singulair Tablet (Montelukast Sodium) 10 Mg Tablet 10 Mg PO HS 01/15/14 Reported Comments CXR IMPRESSION: 1. Stable patchy bilateral opacities. 2. Stable small bilateral pleural effusions. Impression . 1. Acute on chronic hypercapnic/ hypoxemic respiratory failure, worsening 2. Abnormal x-ray compatible with pneumonia, COVID-19. 3. COVID-19 viral pneumonia. 4. COVID-19 exposure. 5. Hypotension,---resolved 6. Asthma, mild in nature. The patient uses p.r.n. albuterol and Singulair. 7. Obesity. 8. Acute kidney injury---resolved Plan . Continue Vapotherm during the day as tolerated ---Continue BIPAP ,Continue 2 09/27, rate 24 at 80% Follow CXR/ABG: no changes today Continue steroids for full ten day course, started on 04/28/20 Continue empiric ABX on [place], Has completed full course of Remdesvir Covid positive Continue bronchodilators Continue PPN for nutritional support DVT/GI PPX D/W RN and RT ANGELY LOWRY MD May 04, 2020 10:39
--- NOTE | 2020-05-04 11:40 | PDOC ---
[facility] PROGRESS NOTE Date of Service DOS: DATE: 05/04/20 TIME: 11:38 Chief Complaint Chief Complaint COVID-19 respiratory failure and hypercapnia and COPD and pneumonia Small bilateral pleural effusions Hypotension HTN Asthma Obesity DOROTHEA Sepsis History of Present Illness History of Present Illness 05/04/2020 Patient seen and examined in the COVID-19 ICU He was just changed over to Vapotherm with 100% FiO2 On IV PPN Discussed with RN Chart reviewed He remains quite ill and very weak Mr Bertrand is a 69yo M w/ PMHX chronic persistent asthma, HTN, esophageal strictures, low testosterone, prior portal vein thrombus who presents to the ED at the insistence of his stepson with c/o difficulty breathing, cough, fever for the last 5 days. Patient was exposed to a auwgtctu-[id number] who had COVID-19 infection last week. He went to his doctor today, his oxygen saturation was 70% on room air in the clinic. Therefore he was brought here by his son for evaluation. He has been having difficulty sleeping due to his shortness of breath. O2 saturations 62% on arrival improved with 15L facemask O2.. EKG was done at 1027, heart rate 70 beats per minute, sinus rhythm, no ST segment elevation Chest radiograph with multifocal interstitial and alveolar infiltrate with suspected partial left lower lobe consolidation as well as small bilateral pleural effusions. Labs with WBC 3.9, Hb 14.1, platelets 171, albumin 3.3, trop 0, BNP 1082, Na 138, K 4.3, BUN 49, Cr 1.7, glucose 115. Admitted for further care. 04/28: Overnight a bit confused. ABG 7.1 on 15 L. More short of breath 04/29: Patient was moved out of the ICU yesterday. Currently breathing on BiPAP, FiO2 50%. Afebrile, tachypneic. COVID-19 positive. Continue remdesivir, steroids, Rocephin, azithromycin, and supportive care. Cussed with RN. 04/30: Patient seen in ICU. Still breathing on BiPAP, FiO2 50%. Some hypokalemia today, will treat with Kayexalate and Lasix, as this will also help with bilateral pleural effusions. Continue remdesivir, steroids, antibiotics. 05/01: Afebrile, tachypneic, breathing on Vapotherm 40 L. Potassium improving, BUN improving. Last dose of remdesivir today. Continue steroids and ant ibiotics. Charts and labs reviewed. 05/02: Patient seen in [place] [address] ICU. Completed remdesivir. Afebrile. Currently breathing on 40 L Vapotherm. Continue steroids antibiotics, supportive care. No acute events overnight, discussed with RN. 05/03: Patient seen in [place] [address] ICU. He is breathing on BiPAP, FiO2 60%. He denies any chest pain or nausea. He is completed remdesivir and azithromycin treatments. Continue Rocephin. Discussed with RN, no acute events overnight. Vitals/I&O Vitals/I&O: Vital Signs Date Time Temp Pulse Resp B/P (MAP) Pulse Ox O2 Delivery O2 Flow Rate FiO2 05/04/20 11:00 98.7 53 26 116/74 (88) 93 vapotherm 98.7 05/04/20 09:05 35.0 I & O 05/03/20 05/03/20 05/04/20 15:00 23:00 07:00 Intake Total 300 ml 370 ml 2038 ml Output Total 710 ml 550 ml Balance 300 ml -340 ml 1488 ml Physical Exam General: mild distress Heart: Other (Tachycardic) Lungs: Crackles Abdomen: Normal bowel sounds, Soft, No masses Extremities: No clubbing, No cyanosis Skin: No rashes, No breakdown Labs Labs: Laboratory Tests Test 05/03/20 17:11 05/03/20 20:43 05/04/20 08:19 05/04/20 08:50 Glucose (Fingerstick) 117 mg/dL (70-99) 108 mg/dL (70-99) 89 mg/dL (70-99) White Blood Count 5.7 x10^3/uL (4.0-11.0) Red Blood Count 4.44 x10^6/uL (4.30-5.70) Hemoglobin 13.3 g/dL (13.0-17.5) Hematocrit 40.0 % (39.0-53.0) Mean Corpuscular Volume 90 fL (79-100) Mean Corpuscular Hemoglobin 30 pg (25-35) Mean Corpuscular Hemoglobin Concent 33 g/dL (31-37) Red Cell Distribution Width 15.2 % (11.5-14.5) Platelet Count 208 x10^3/uL (140-400) Neutrophils (%) (Auto) 82 % (31-73) Lymphocytes (%) (Auto) 9 % (24-48) Monocytes (%) (Auto) 6 % (0-9) Eosinophils (%) (Auto) 3 % (0-3) Basophils (%) (Auto) 0 % (0-3) Neutrophils # (Auto) 4.6 x10^3/uL (1.8-7.7) Lymphocytes # (Auto) 0.5 x10^3/uL (1.0-4.8) Monocytes # (Auto) 0.3 x10^3/uL (0.0-1.1) Eosinophils # (Auto) 0.2 x10^3/uL (0.0-0.7) Basophils # (Auto) 0.0 x10^3/uL (0.0-0.2) Sodium Level 142 mmol/L (136-145) Potassium Level 4.9 mmol/L (3.5-5.1) Chloride Level 102 mmol/L (98-107) Carbon Dioxide Level 36 mmol/L (21-32) Anion Gap 4 (6-14) Blood Urea Nitrogen 22 mg/dL (8-26) Creatinine 0.9 mg/dL (0.7-1.3) Estimated GFR (Cockcroft-Gault) 83.9 Glucose Level 75 mg/dL (70-99) Calcium Level 8.8 mg/dL (8.5-10.1) Assessment and Plan Assessmemt and Plan Problems Medical Problems: (1) Pneumonia due to COVID-19 virus Status: Acute (2) Respiratory failure Status: Acute Acute respiratory failure with hypoxia -likely COVID-19 related given recent exposure and O2 needs. Also with left lower lobe pneumonia likely gram- negative. (Continue Covid protocol) Acute respiratory failure with hypercapnia - likely also COVID 19 related or COPD from his chronic asthma with retention Pneumonia - Multifocal interstitial and alveolar infiltrate with suspected partial left lower lobe consolidation. Will treat as gram negative Small bilateral pleural effusions - will monitor Hypotension - likely related to prolonged hypoxemia, sepsis from pneumonia, covid 19, will fluid challenge. HTN - hold amlodipine Asthma - moderate persistent by history, cont singulair, will order inhalers from pharmacy Obesity - counseled on weight management DOROTHEA - likely from vasomotor nephropathy, will hydrate, monitor renal function Sepsis - with leukopenia, RR elevated, will cont antibiotics and fluids Continue ICU monitoring Home meds DVT prophylaxis Full code Appreciate subspecialist input Prognosis guarded Comment Review of Relevant I have reviewed the following items ruby (where applicable) has been applied. Justifications for Admission Other Justification VERONICA CONN III DO May 04, 2020 11:40
[2020-05-04] MEDS: cefTRIAXone IV Push 1 GM VIAL. IVP SCH (12:48)
[2020-05-04] MEDS: AMINO AC 3%/ELECTROLYTE/GLYCER 1,000 ML IV SCH (18:38)
[2020-05-04] MEDS: MONTELUKAST SODIUM 10 MG TABLET. PO SCH (20:50)
[2020-05-05] VITALS (24 sets, daily range): BP systolic 99–157; BP diastolic 53–86
[2020-05-05] MEDS: ZINC SULFATE 220 MG CAPSULE. PO SCH (07:24)
[2020-05-05] MEDS: LACTOBACILLUS RHAMNOSUS GG 1 CAPSULE. PO SCH ×2 (07:24→20:14)
[2020-05-05] MEDS: THIAMINE 100 MG TABLET. PO SCH (07:24)
[2020-05-05] MEDS: ENOXAPARIN 40 MG/0.4 ML SYRINGE. SQ SCH ×2 (07:24→20:15)
[2020-05-05] MEDS: DEXAMETHASONE 4 MG TABLET PO SCH (07:25)
[2020-05-05] MEDS: FAMOTIDINE 20 MG/2 ML VIAL IVP SCH ×2 (07:25→20:14)
[2020-05-05] MEDS: INSULIN LISPRO 300 UNITS/3 ML VIAL. SQ SCH ×3 (07:44→17:00)
[2020-05-05 08:43] LABS: BASO % 0 % (0-3); EOS # 0.1 x10^3/uL (0.0-0.7); EOS % 2 % (0-3); HEMATOCRIT 42.4 % (39.0-53.0); HEMOGLOBIN 13.8 g/dL (13.0-17.5); LYMPH # 0.5 x10^3/uL (1.0-4.8); LYMPH % 9 % (24-48); MEAN CORPUSCULAR HEMOGLOBIN 30 pg (25-35); MEAN CORPUSCULAR HGB CONC 33 g/dL (31-37); MEAN CORPUSCULAR VOLUME 91 fL (79-100); MONO # 0.3 x10^3/uL (0.0-1.1); MONO % 7 % (0-9); NEUT # 4.3 x10^3/uL (1.8-7.7); NEUT % 82 % (31-73); PLATELET COUNT 223 x10^3/uL (140-400); RED BLOOD COUNT 4.67 x10^6/uL (4.30-5.70); RED CELL DISTRIBUTION WIDTH 15.1 % (11.5-14.5); WHITE BLOOD COUNT 5.2 x10^3/uL (4.0-11.0)
[2020-05-05 08:56] LABS: CREATININE 0.9 mg/dL (0.7-1.3); GFR 83.9; POTASSIUM 5.2 mmol/L (3.5-5.1)
[2020-05-05] MEDS: MORPHINE SULFATE 4 MG/ML VIAL. IV PRN ×2 (09:23→22:31)
--- NOTE | 2020-05-05 11:05 | PDOC ---
[facility] PROGRESS NOTE Date of Service DOS: DATE: 05/05/20 TIME: 11:04 Chief Complaint Chief Complaint COVID-19 respiratory failure and hypercapnia and COPD and pneumonia Small bilateral pleural effusions Hypotension HTN Asthma Obesity DOROTHEA Sepsis History of Present Illness History of Present Illness 05/05/2020 Patient seen and examined in the COVID-19 ICU He is currently on Vapotherm Appears weak but somewhat stable Chart reviewed Discussed with RN 05/04/2020 Patient seen and examined in the COVID-19 ICU He was just changed over to Vapotherm with 100% FiO2 On IV PPN Discussed with RN Chart reviewed He remains quite ill and very weak Mr Bertrand is a 69yo M w/ PMHX chronic persistent asthma, HTN, esophageal strictures, low testosterone, prior portal vein thrombus who presents to the ED at the insistence of his stepson with c/o difficulty breathing, cough, fever for the last 5 days. Patient was exposed to a xspuxduq-ke-vfd who had COVID-19 infection last week. He went to his doctor today, his oxygen saturation was 70% on room air in the clinic. Therefore he was brought here by his son for evaluation. He has been having difficulty sleeping due to his shortness of breath. O2 saturations 62% on arrival improved with 15L facemask O2.. EKG was done at 1027, heart rate 70 beats per minute, sinus rhythm, no ST segment elevation Chest radiograph with multifocal interstitial and alveolar infiltrate with roper spected partial left lower lobe consolidation as well as small bilateral pleural effusions. Labs with WBC 3.9, Hb 14.1, platelets 171, albumin 3.3, trop 0, BNP 1082, Na 138, K 4.3, BUN 49, Cr 1.7, glucose 115. Admitted for further care. 04/28: Overnight a bit confused. ABG 7.1 / on 15 L. More short of breath 04/29: Patient was moved out of the ICU yesterday. Currently breathing on BiPAP, FiO2 50%. Afebrile, tachypneic. COVID-19 positive. Continue remdesivir, steroids, Rocephin, azithromycin, and supportive care. Cussed with RN. 04/30: Patient seen in ICU. Still breathing on BiPAP, FiO2 50%. Some hypokalemia today, will treat with Kayexalate and Lasix, as this will also help with bilateral pleural effusions. Continue remdesivir, steroids, antibiotics. 05/01: Afebrile, tachypneic, breathing on Vapotherm 40 L. Potassium improving, BUN improving. Last dose of remdesivir today. Continue steroids and antibiotics. Charts and labs reviewed. 05/02: Patient seen in [place] [address] ICU. Completed remdesivir. Afebrile. Currently breathing on 40 L Vapotherm. Continue steroids antibiotics, supportive care. No acute events overnight, discussed with RN. 05/03: Patient seen in [place] [address] ICU. He is breathing on BiPAP, FiO2 60%. He denies any chest pain or nausea. He is completed remdesivir and azithromycin treatments. Continue Rocephin. Discussed with RN, no acute events overnight. Vitals/I&O Vitals/I&O: Vital Signs Date Time Temp Pulse Resp B/P (MAP) Pulse Ox O2 Delivery O2 Flow Rate FiO2 05/05/20 10:50 26 93 BiPAP/CPAP 05/05/20 10:00 64 119/81 (94) 35.0 05/05/20 08:00 98.6 98.6 I & O 05/04/20 05/04/20 05/05/20 15:00 23:00 07:00 Intake Total 350 ml 929 ml 349 ml Output Total 1290 ml 750 ml Balance 350 ml -361 ml -401 ml Physical Exam General: mild distress Heart: Other (Tachycardic) Lungs: Crackles Abdomen: Normal bowel sounds, Soft, No masses Extremities: No clubbing, No cyanosis Skin: No rashes, No breakdown Labs Labs: Laboratory Tests Test 05/04/20 11:47 05/05/20 08:00 Glucose (Fingerstick) 100 mg/dL (70-99) White Blood Count 5.2 x10^3/uL (4.0-11.0) Red Blood Count 4.67 x10^6/uL (4.30-5.70) Hemoglobin 13.8 g/dL (13.0-17.5) Hematocrit 42.4 % (39.0-53.0) Mean Corpuscular Volume 91 fL (79-100) Mean Corpuscular Hemoglobin 30 pg (25-35) Mean Corpuscular Hemoglobin Concent 33 g/dL (31-37) Red Cell Distribution Width 15.1 % (11.5-14.5) Platelet Count 223 x10^3/uL (140-400) Neutrophils (%) (Auto) 82 % (31-73) Lymphocytes (%) (Auto) 9 % (24-48) Monocytes (%) (Auto) 7 % (0-9) Eosinophils (%) (Auto) 2 % (0-3) Basophils (%) (Auto) 0 % (0-3) Neutrophils # (Auto) 4.3 x10^3/uL (1.8-7.7) Lymphocytes # (Auto) 0.5 x10^3/uL (1.0-4.8) Monocytes # (Auto) 0.3 x10^3/uL (0.0-1.1) Eosinophils # (Auto) 0.1 x10^3/uL (0.0-0.7) Basophils # (Auto) 0.0 x10^3/uL (0.0-0.2) Sodium Level 144 mmol/L (136-145) Potassium Level 5.2 mmol/L (3.5-5.1) Chloride Level 103 mmol/L (98-107) Carbon Dioxide Level 37 mmol/L (21-32) Anion Gap 4 (6-14) Blood Urea Nitrogen 21 mg/dL (8-26) Creatinine 0.9 mg/dL (0.7-1.3) Estimated GFR (Cockcroft-Gault) 83.9 Glucose Level 84 mg/dL (70-99) Calcium Level 9.0 mg/dL (8.5-10.1) Assessment and Plan Assessmemt and Plan Problems Medical Problems: (1) Pneumonia due to COVID-19 virus Status: Acute (2) Respiratory failure Status: Acute COVID-19 respiratory failure and hypercapnia and COPD and pneumonia Small bilateral pleural effusions Hypotension HTN Asthma Obesity DOROTHEA Sepsis Acute respiratory failure with hypoxia -likely COVID-19 related given recent exposure and O2 needs. Also with left lower lobe pneumonia likely gram- negative. (Continue Covid protocol) Acute respiratory failure with hypercapnia - likely also COVID 19 related or COPD from his chronic asthma with retention Pneumonia - Multifocal interstitial and alveolar infiltrate with suspected partial left lower lobe consolidation. Will treat as gram negative Small bilateral pleural effusions - will monitor Hypotension - likely related to prolonged hypoxemia, sepsis from pneumonia, covid 19, will fluid challenge. HTN - hold amlodipine Asthma - moderate persistent by history, cont singulair, will order inhalers from pharmacy Obesity - counseled on weight management DOROTHEA - likely from vasomotor nephropathy, will hydrate, monitor renal function Sepsis - with leukopenia, RR elevated, will cont antibiotics and fluids Continue ICU monitoring Home meds DVT prophylaxis Full code Appreciate subspecialist input Prognosis guarded Comment Review of Relevant I have reviewed the following items ruby (where applicable) has been applied. Medications: Current Medications Medications (Trade) Dose Ordered Sig/Alondra Route PRN Reason Start Time Stop Time Status Last Admin Dose Admin Dexamethasone (Decadron) 4 mg [id number] PO 05/05/20 08:00 05/05/20 07:25 Justifications for Admission Other Justification VERONICA CONN III DO May 05, 2020 11:05
--- NOTE | 2020-05-05 12:17 | PDOC ---
PULMONARY PROGRESS NOTES DATE: 05/05/20 TIME: 12:12 Subjective Awake and alert remains on BIPAP 100% and alternating Vapotherm for meals afebrile no overnight events Vitals Vital Signs Date Time Temp Pulse Resp B/P (MAP) Pulse Ox O2 Delivery O2 Flow Rate FiO2 05/05/20 11:00 62 26 111/64 (80) 91 VAPOTHERM 35.0 05/05/20 08:00 98.6 98.6 Comments visual exam preformed RRR BIPAP or Vapotherm no accessory muscle use no edema General: Alert, No acute distress Lungs: Crackles Labs Laboratory Tests Test 05/03/20 17:11 05/03/20 20:43 05/04/20 08:19 05/04/20 08:50 Glucose (Fingerstick) 117 mg/dL (70-99) 108 mg/dL (70-99) 89 mg/dL (70-99) White Blood Count 5.7 x10^3/uL (4.0-11.0) Red Blood Count 4.44 x10^6/uL (4.30-5.70) Hemoglobin 13.3 g/dL (13.0-17.5) Hematocrit 40.0 % (39.0-53.0) Mean Corpuscular Volume 90 fL (79-100) Mean Corpuscular Hemoglobin 30 pg (25-35) Mean Corpuscular Hemoglobin Concent 33 g/dL (31-37) Red Cell Distribution Width 15.2 % (11.5-14.5) Platelet Count 208 x10^3/uL (140-400) Neutrophils (%) (Auto) 82 % (31-73) Lymphocytes (%) (Auto) 9 % (24-48) Monocytes (%) (Auto) 6 % (0-9) Eosinophils (%) (Auto) 3 % (0-3) Basophils (%) (Auto) 0 % (0-3) Neutrophils # (Auto) 4.6 x10^3/uL (1.8-7.7) Lymphocytes # (Auto) 0.5 x10^3/uL (1.0-4.8) Monocytes # (Auto) 0.3 x10^3/uL (0.0-1.1) Eosinophils # (Auto) 0.2 x10^3/uL (0.0-0.7) Basophils # (Auto) 0.0 x10^3/uL (0.0-0.2) Sodium Level 142 mmol/L (136-145) Potassium Level 4.9 mmol/L (3.5-5.1) Chloride Level 102 mmol/L (98-107) Carbon Dioxide Level 36 mmol/L (21-32) Anion Gap 4 (6-14) Blood Urea Nitrogen 22 mg/dL (8-26) Creatinine 0.9 mg/dL (0.7-1.3) Estimated GFR (Cockcroft-Gault) 83.9 Glucose Level 75 mg/dL (70-99) Calcium Level 8.8 mg/dL (8.5-10.1) Test 05/04/20 11:47 05/05/20 08:00 Glucose (Fingerstick) 100 mg/dL (70-99) White Blood Count 5.2 x10^3/uL (4.0-11.0) Red Blood Count 4.67 x10^6/uL (4.30-5.70) Hemoglobin 13.8 g/dL (13.0-17.5) Hematocrit 42.4 % (39.0-53.0) Mean Corpuscular Volume 91 fL (79-100) Mean Corpuscular Hemoglobin 30 pg (25-35) Mean Corpuscular Hemoglobin Concent 33 g/dL (31-37) Red Cell Distribution Width 15.1 % (11.5-14.5) Platelet Count 223 x10^3/uL (140-400) Neutrophils (%) (Auto) 82 % (31-73) Lymphocytes (%) (Auto) 9 % (24-48) Monocytes (%) (Auto) 7 % (0-9) Eosinophils (%) (Auto) 2 % (0-3) Basophils (%) (Auto) 0 % (0-3) Neutrophils # (Auto) 4.3 x10^3/uL (1.8-7.7) Lymphocytes # (Auto) 0.5 x10^3/uL (1.0-4.8) Monocytes # (Auto) 0.3 x10^3/uL (0.0-1.1) Eosinophils # (Auto) 0.1 x10^3/uL (0.0-0.7) Basophils # (Auto) 0.0 x10^3/uL (0.0-0.2) Sodium Level 144 mmol/L (136-145) Potassium Level 5.2 mmol/L (3.5-5.1) Chloride Level 103 mmol/L (98-107) Carbon Dioxide Level 37 mmol/L (21-32) Anion Gap 4 (6-14) Blood Urea Nitrogen 21 mg/dL (8-26) Creatinine 0.9 mg/dL (0.7-1.3) Estimated GFR (Cockcroft-Gault) 83.9 Glucose Level 84 mg/dL (70-99) Calcium Level 9.0 mg/dL (8.5-10.1) Laboratory Tests Test 05/05/20 08:00 White Blood Count 5.2 x10^3/uL (4.0-11.0) Red Blood Count 4.67 x10^6/uL (4.30-5.70) Hemoglobin 13.8 g/dL (13.0-17.5) Hematocrit 42.4 % (39.0-53.0) Mean Corpuscular Volume 91 fL (79-100) Mean Corpuscular Hemoglobin 30 pg (25-35) Mean Corpuscular Hemoglobin Concent 33 g/dL (31-37) Red Cell Distribution Width 15.1 % (11.5-14.5) Platelet Count 223 x10^3/uL (140-400) Neutrophils (%) (Auto) 82 % (31-73) Lymphocytes (%) (Auto) 9 % (24-48) Monocytes (%) (Auto) 7 % (0-9) Eosinophils (%) (Auto) 2 % (0-3) Basophils (%) (Auto) 0 % (0-3) Neutrophils # (Auto) 4.3 x10^3/uL (1.8-7.7) Lymphocytes # (Auto) 0.5 x10^3/uL (1.0-4.8) Monocytes # (Auto) 0.3 x10^3/uL (0.0-1.1) Eosinophils # (Auto) 0.1 x10^3/uL (0.0-0.7) Basophils # (Auto) 0.0 x10^3/uL (0.0-0.2) Sodium Level 144 mmol/L (136-145) Potassium Level 5.2 mmol/L (3.5-5.1) Chloride Level 103 mmol/L (98-107) Carbon Dioxide Level 37 mmol/L (21-32) Anion Gap 4 (6-14) Blood Urea Nitrogen 21 mg/dL (8-26) Creatinine 0.9 mg/dL (0.7-1.3) Estimated GFR (Cockcroft-Gault) 83.9 Glucose Level 84 mg/dL (70-99) Calcium Level 9.0 mg/dL (8.5-10.1) Medications Active Scripts Medications Dose Route/Sig Max Daily Dose Days Date Category Medrol (Methylprednisolone) 4 Mg Tab.ds.pk 1 Pkg PO UD 06/28/15 Reported Norvasc (Amlodipine Besylate) 5 Mg Tablet 1 Tab PO DAILY 06/22/15 Reported Proair Hfa Inhaler (Albuterol Sulfate) 8.5 Gm Hfa.aer.ad 1 Puff INH PRN Q6HRS PRN 06/22/15 Reported Advair 250-50 Diskus (Fluticasone/Salmeterol) 1 Each Disk.w.dev 1 Inh IH BID 06/22/15 Reported Singulair Tablet (Montelukast Sodium) 10 Mg Tablet 10 Mg PO HS 01/15/14 Reported Comments CXR IMPRESSION: 1. Stable patchy bilateral opacities. 2. Stable small bilateral pleural effusions. Impression . 1. Acute on chronic hypercapnic/ hypoxemic respiratory failure, worsening 2. Abnormal x-ray compatible with pneumonia, COVID-19. 3. COVID-19 viral pneumonia. 4. COVID-19 exposure. 5. Hypotension,---resolved 6. Asthma, mild in nature. The patient uses p.r.n. albuterol and Singulair. 7. Obesity. 8. Acute kidney injury---resolved Plan . Continue BIPAP 100%, with Vapotherm for meals Follow CXR/ABG: no changes today Continue steroids for full ten day course, started on 04/28/20 ok to D/C on 05/08/20 D/C [place] has completed full 7 day course Has completed full course of Remdesvir Covid positive Continue bronchodilators D/C PPN 2/2 hyperkalemia, DVT/GI PPX D/W RN and RT ANGELY LOWRY MD May 05, 2020 12:16
--- NOTE | 2020-05-05 15:41 | NUR ---
SS following up with discharge planning. SS reviewed pt chart and discussed with pt RN. Pt is currently on the BIPAP at 100%. Per RN, pt alternates to Vapotherm for meals. COVID19 positive. Not stable. SS will continue to follow for discharge planning.
[2020-05-05] MEDS: MONTELUKAST SODIUM 10 MG TABLET. PO SCH (20:14)
[2020-05-05] MEDS: STERILE WATER for RESP 1,000 ML BAG. INH PRN (20:17)
--- NOTE | 2020-05-05 21:42 | NUR ---
TRANSFER OF CARE GIVEN TO CHRISTOPHER RN, PT RESTING QUIETLY WITH BIPAP ON AT THIS TIME, WILL CONT TO MONITOR PT STATUS AND SAFETY. PMRN
[2020-05-05] MEDS: ZOLPIDEM 5 MG TABLET. PO PRN (21:52)
[2020-05-06] VITALS (24 sets, daily range): BP systolic 100–153; BP diastolic 61–93
[2020-05-06] MEDS: MORPHINE SULFATE 4 MG/ML VIAL. IV PRN ×3 (04:57→22:34)
[2020-05-06 07:53] LABS: BASO # 0.1 x10^3/uL (0.0-0.2); BASO % 1 % (0-3); EOS # 0.1 x10^3/uL (0.0-0.7); EOS % 2 % (0-3); LYMPH # 0.5 x10^3/uL (1.0-4.8); LYMPH % 9 % (24-48); MEAN CORPUSCULAR HEMOGLOBIN 30 pg (25-35); MEAN CORPUSCULAR HGB CONC 33 g/dL (31-37); MEAN CORPUSCULAR VOLUME 91 fL (79-100); MONO # 0.4 x10^3/uL (0.0-1.1); MONO % 7 % (0-9); NEUT # 4.8 x10^3/uL (1.8-7.7); NEUT % 81 % (31-73); PLATELET COUNT 190 x10^3/uL (140-400); RED BLOOD COUNT 4.62 x10^6/uL (4.30-5.70); RED CELL DISTRIBUTION WIDTH 15.2 % (11.5-14.5)
[2020-05-06] MEDS: INSULIN LISPRO 300 UNITS/3 ML VIAL. SQ SCH ×3 (08:00→17:00)
[2020-05-06 08:22] LABS: CALCIUM 8.7 mg/dL (8.5-10.1); GFR 74.3; POTASSIUM 4.3 mmol/L (3.5-5.1)
[2020-05-06] MEDS: FAMOTIDINE 20 MG/2 ML VIAL IVP SCH ×2 (08:34→21:21)
[2020-05-06] MEDS: THIAMINE 100 MG TABLET. PO SCH (08:34)
[2020-05-06] MEDS: DEXAMETHASONE 4 MG TABLET PO SCH (08:34)
[2020-05-06] MEDS: ZINC SULFATE 220 MG CAPSULE. PO SCH (08:34)
[2020-05-06] MEDS: LACTOBACILLUS RHAMNOSUS GG 1 CAPSULE. PO SCH ×2 (08:34→21:20)
[2020-05-06] MEDS: ENOXAPARIN 40 MG/0.4 ML SYRINGE. SQ SCH ×2 (08:35→21:22)
[2020-05-06 11:07] LABS: BASE EXCESS ABG 8 mmol/L (-3-3); HCO3 ABG 38 mmol/L (21-28); PO2 ABG 96 mmHg (65-108); SAT O2 ABG 97 % (92-99)
[2020-05-06 11:09] LABS: FIO2 ABG 100; PCO2 ABG 81 mmHg (35-46)
--- NOTE | 2020-05-06 11:27 | PDOC ---
PULMONARY PROGRESS NOTES DATE: 05/06/20 TIME: 11:22 Subjective PT. is confused this am Vapotherm for meals and BIPAP no overnight events Vitals Vital Signs Date Time Temp Pulse Resp B/P (MAP) Pulse Ox O2 Delivery O2 Flow Rate FiO2 05/06/20 11:00 60 24 101/62 (75) 100 BiPAP/CPAP 05/06/20 10:04 35.0 05/06/20 08:00 97.7 97.7 Comments visual exam preformed RRR BIPAP no accessory muscle use no edema General: Alert, No acute distress Lungs: Clear Labs Laboratory Tests Test 05/04/20 11:47 05/05/20 08:00 05/06/20 07:30 05/06/20 11:00 Glucose (Fingerstick) 100 mg/dL (70-99) White Blood Count 5.2 x10^3/uL (4.0-11.0) 6.0 x10^3/uL (4.0-11.0) Red Blood Count 4.67 x10^6/uL (4.30-5.70) 4.62 x10^6/uL (4.30-5.70) Hemoglobin 13.8 g/dL (13.0-17.5) 14.0 g/dL (13.0-17.5) Hematocrit 42.4 % (39.0-53.0) 42.0 % (39.0-53.0) Mean Corpuscular Volume 91 fL (79-100) 91 fL (79-100) Mean Corpuscular Hemoglobin 30 pg (25-35) 30 pg (25-35) Mean Corpuscular Hemoglobin Concent 33 g/dL (31-37) 33 g/dL (31-37) Red Cell Distribution Width 15.1 % (11.5-14.5) 15.2 % (11.5-14.5) Platelet Count 223 x10^3/uL (140-400) 190 x10^3/uL (140-400) Neutrophils (%) (Auto) 82 % (31-73) 81 % (31-73) Lymphocytes (%) (Auto) 9 % (24-48) 9 % (24-48) Monocytes (%) (Auto) 7 % (0-9) 7 % (0-9) Eosinophils (%) (Auto) 2 % (0-3) 2 % (0-3) Basophils (%) (Auto) 0 % (0-3) 1 % (0-3) Neutrophils # (Auto) 4.3 x10^3/uL (1.8-7.7) 4.8 x10^3/uL (1.8-7.7) Lymphocytes # (Auto) 0.5 x10^3/uL (1.0-4.8) 0.5 x10^3/uL (1.0-4.8) Monocytes # (Auto) 0.3 x10^3/uL (0.0-1.1) 0.4 x10^3/uL (0.0-1.1) Eosinophils # (Auto) 0.1 x10^3/uL (0.0-0.7) 0.1 x10^3/uL (0.0-0.7) Basophils # (Auto) 0.0 x10^3/uL (0.0-0.2) 0.1 x10^3/uL (0.0-0.2) Sodium Level 144 mmol/L (136-145) 144 mmol/L (136-145) Potassium Level 5.2 mmol/L (3.5-5.1) 4.3 mmol/L (3.5-5.1) Chloride Level 103 mmol/L (98-107) 104 mmol/L (98-107) Carbon Dioxide Level 37 mmol/L (21-32) 39 mmol/L (21-32) Anion Gap 4 (6-14) 1 (6-14) Blood Urea Nitrogen 21 mg/dL (8-26) 20 mg/dL (8-26) Creatinine 0.9 mg/dL (0.7-1.3) 1.0 mg/dL (0.7-1.3) Estimated GFR (Cockcroft-Gault) 83.9 74.3 Glucose Level 84 mg/dL (70-99) 76 mg/dL (70-99) Calcium Level 9.0 mg/dL (8.5-10.1) 8.7 mg/dL (8.5-10.1) O2 Saturation 97 % (92-99) Arterial Blood pH 7.29 (7.35-7.45) Arterial Blood pCO2 at Patient Temp 81 mmHg (35-46) Arterial Blood pO2 at Patient Temp 96 mmHg (65-108) Arterial Blood HCO3 38 mmol/L (21-28) Arterial Blood Base Excess 8 mmol/L (-3-3) FiO2 100 Laboratory Tests Test 05/06/20 07:30 05/06/20 11:00 White Blood Count 6.0 x10^3/uL (4.0-11.0) Red Blood Count 4.62 x10^6/uL (4.30-5.70) Hemoglobin 14.0 g/dL (13.0-17.5) Hematocrit 42.0 % (39.0-53.0) Mean Corpuscular Volume 91 fL (79-100) Mean Corpuscular Hemoglobin 30 pg (25-35) Mean Corpuscular Hemoglobin Concent 33 g/dL (31-37) Red Cell Distribution Width 15.2 % (11.5-14.5) Platelet Count 190 x10^3/uL (140-400) Neutrophils (%) (Auto) 81 % (31-73) Lymphocytes (%) (Auto) 9 % (24-48) Monocytes (%) (Auto) 7 % (0-9) Eosinophils (%) (Auto) 2 % (0-3) Basophils (%) (Auto) 1 % (0-3) Neutrophils # (Auto) 4.8 x10^3/uL (1.8-7.7) Lymphocytes # (Auto) 0.5 x10^3/uL (1.0-4.8) Monocytes # (Auto) 0.4 x10^3/uL (0.0-1.1) Eosinophils # (Auto) 0.1 x10^3/uL (0.0-0.7) Basophils # (Auto) 0.1 x10^3/uL (0.0-0.2) Sodium Level 144 mmol/L (136-145) Potassium Level 4.3 mmol/L (3.5-5.1) Chloride Level 104 mmol/L (98-107) Carbon Dioxide Level 39 mmol/L (21-32) Anion Gap 1 (6-14) Blood Urea Nitrogen 20 mg/dL (8-26) Creatinine 1.0 mg/dL (0.7-1.3) Estimated GFR (Cockcroft-Gault) 74.3 Glucose Level 76 mg/dL (70-99) Calcium Level 8.7 mg/dL (8.5-10.1) O2 Saturation 97 % (92-99) Arterial Blood pH 7.29 (7.35-7.45) Arterial Blood pCO2 at Patient Temp 81 mmHg (35-46) Arterial Blood pO2 at Patient Temp 96 mmHg (65-108) Arterial Blood HCO3 38 mmol/L (21-28) Arterial Blood Base Excess 8 mmol/L (-3-3) FiO2 100 Medications Active Scripts Medications Dose Route/Sig Max Daily Dose Days Date Category Medrol (Methylprednisolone) 4 Mg Tab.ds.pk 1 Pkg PO UD 06/28/15 Reported Norvasc (Amlodipine Besylate) 5 Mg Tablet 1 Tab PO DAILY 06/22/15 Reported Proair Hfa Inhaler (Albuterol Sulfate) 8.5 Gm Hfa.aer.ad 1 Puff INH PRN Q6HRS PRN 06/22/15 Reported Advair 250-50 Diskus (Fluticasone/Salmeterol) 1 Each Disk.w.dev 1 Inh IH BID 06/22/15 Reported Singulair Tablet (Montelukast Sodium) 10 Mg Tablet 10 Mg PO HS 01/15/14 Reported Comments CXR IMPRESSION: 1. Stable patchy bilateral opacities. 2. Stable small bilateral pleural effusions. Impression . 1. Acute on chronic hypercapnic/ hypoxemic respiratory failure, worsening 2. Abnormal x-ray compatible with pneumonia, COVID-19. 3. COVID-19 viral pneumonia. 4. COVID-19 exposure. 5. Hypotension,---resolved 6. Asthma, mild in nature. The patient uses p.r.n. albuterol and Singulair. 7. Obesity. 8. Acute kidney injury---resolved Plan . Obtain ABG this am for AMS, as suspected pt. is hypercarbic PC02 uis 81 on BIPAP D/C vapotherm, BIPAP 13/10 rate 24 with Fi02 to 85 %, monitor respiratory status closely for need for intubation Follow CXR/ABG Continue steroids for full ten day course, started on 04/28/20 ok to D/C on 05/08/20 Has completed full course of Remdesvir Covid positive TPN for nutritional Support Place PICC line DVT/GI PPX Critical Care Time [id number] D/W RN and RT ANGELY LOWRY MD May 06, 2020 11:27
--- NOTE | 2020-05-06 11:33 | PDOC ---
[employer] PROGRESS NOTE Date of Service DOS: DATE: 05/06/20 TIME: 11:31 Chief Complaint Chief Complaint COVID-19 respiratory failure and hypercapnia and COPD and pneumonia Small bilateral pleural effusions Hypotension HTN Asthma Obesity DOROTHEA Sepsis History of Present Illness History of Present Illness 05/06/2020 Patient seen in the ICU Chart reviewed He is still on Vapotherm but pulmonary plans to discontinue it this morning and see how he does 05/05/2020 Patient seen and examined in the [facility] He is currently on Vapotherm Appears weak but somewhat stable Chart reviewed Discussed with RN 05/04/2020 Patient seen and examined in the COVID-19 ICU He was just changed over to Vapotherm with 100% FiO2 On IV PPN Discussed with RN Chart reviewed He remains quite ill and very weak Mr Bertrand is a 69yo M w/ PMHX chronic persistent asthma, HTN, esophageal strictures, low testosterone, prior portal vein thrombus who presents to the ED at the insistence of his stepson with c/o difficulty breathing, cough, fever for the last 5 days. Patient was exposed to a [id number] who had COVID-19 infection last week. He went to his doctor today, his oxygen saturation was 70% on room air in the clinic. Therefore he was brought here by his son for evaluation. He has been having difficulty sleeping due to his shortness of breath. O2 saturations 62% on arrival improved with 15L facemask O2.. EKG was done at 1027, heart rate 70 beats per minute, sinus rhythm, no ST segment elevation Chest radiograph with multifocal interstitial and alveolar infiltrate with suspected partial left lower lobe consolidation as well as small bilateral pleural effusions. Labs with WBC 3.9, Hb 14.1, platelets 171, albumin 3.3, trop 0, BNP 1082, Na 138, K 4.3, BUN 49, Cr 1.7, glucose 115. Admitted for further care. 04/28: Overnight a bit confused. ABG 7.1 on 15 L. More short of breath 04/29: Patient was moved out of the ICU yesterday. Currently breathing on BiPAP, FiO2 50%. Afebrile, tachypneic. COVID-19 positive. Continue remdesivir, steroids, Rocephin, azithromycin, and supportive care. Cussed with RN. 04/30: Patient seen in ICU. Still breathing on BiPAP, FiO2 50%. Some hypokalemia today, will treat with Kayexalate and Lasix, as this will also help with bilateral pleural effusions. Continue remdesivir, steroids, antibiotics. 05/01: Afebrile, tachypneic, breathing on Vapotherm 40 L. Potassium improving, BUN improving. Last dose of remdesivir today. Continue steroids and antibiotics. Charts and labs reviewed. 05/02: Patient seen in [place] [address] ICU. Completed remdesivir. Afebrile. Currently breathing on 40 L Vapotherm. Continue steroids antibiotics, supportive care. No acute events overnight, discussed with RN. 05/03: Patient seen in [place] [address] ICU. He is breathing on BiPAP, FiO2 60%. He denies any chest pain or nausea. He is completed remdesivir and azithromycin treatments. Continue Rocephin. Discussed with RN, no acute events overnight. Vitals/I&O Vitals/I&O: Vital Signs Date Time Temp Pulse Resp B/P (MAP) Pulse Ox O2 Delivery O2 Flow Rate FiO2 05/06/20 11:00 60 24 101/62 (75) 100 BiPAP/CPAP 05/06/20 10:04 35.0 05/06/20 08:00 97.7 97.7 I & O 05/05/20 05/05/20 05/06/20 15:00 23:00 07:00 Intake Total 500 ml 480 ml Output Total 825 ml 525 ml 390 ml Balance -325 ml -45 ml -390 ml Physical Exam General: mild distress Heart: Other (Tachycardic) Lungs: Clear Abdomen: Normal bowel sounds, Soft, No masses Extremities: No clubbing, No cyanosis Skin: No rashes, No breakdown Labs Labs: Laboratory Tests Test 05/06/20 07:30 05/06/20 11:00 White Blood Count 6.0 x10^3/uL (4.0-11.0) Red Blood Count 4.62 x10^6/uL (4.30-5.70) Hemoglobin 14.0 g/dL (13.0-17.5) Hematocrit 42.0 % (39.0-53.0) Mean Corpuscular Volume 91 fL (79-100) Mean Corpuscular Hemoglobin 30 pg (25-35) Mean Corpuscular Hemoglobin Concent 33 g/dL (31-37) Red Cell Distribution Width 15.2 % (11.5-14.5) Platelet Count 190 x10^3/uL (140-400) Neutrophils (%) (Auto) 81 % (31-73) Lymphocytes (%) (Auto) 9 % (24-48) Monocytes (%) (Auto) 7 % (0-9) Eosinophils (%) (Auto) 2 % (0-3) Basophils (%) (Auto) 1 % (0-3) Neutrophils # (Auto) 4.8 x10^3/uL (1.8-7.7) Lymphocytes # (Auto) 0.5 x10^3/uL (1.0-4.8) Monocytes # (Auto) 0.4 x10^3/uL (0.0-1.1) Eosinophils # (Auto) 0.1 x10^3/uL (0.0-0.7) Basophils # (Auto) 0.1 x10^3/uL (0.0-0.2) Sodium Level 144 mmol/L (136-145) Potassium Level 4.3 mmol/L (3.5-5.1) Chloride Level 104 mmol/L (98-107) Carbon Dioxide Level 39 mmol/L (21-32) Anion Gap 1 (6-14) Blood Urea Nitrogen 20 mg/dL (8-26) Creatinine 1.0 mg/dL (0.7-1.3) Estimated GFR (Cockcroft-Gault) 74.3 Glucose Level 76 mg/dL (70-99) Calcium Level 8.7 mg/dL (8.5-10.1) O2 Saturation 97 % (92-99) Arterial Blood pH 7.29 (7.35-7.45) Arterial Blood pCO2 at Patient Temp 81 mmHg (35-46) Arterial Blood pO2 at Patient Temp 96 mmHg (65-108) Arterial Blood HCO3 38 mmol/L (21-28) Arterial Blood Base Excess 8 mmol/L (-3-3) FiO2 100 Assessment and Plan Assessmemt and Plan Problems Medical Problems: (1) Pneumonia due to COVID-19 virus Status: Acute Acute COVID-19 respiratory failure and hypercapnia and COPD and pneumonia Small bilateral pleural effusions Hypotension HTN Asthma Obesity DOROTHEA Sepsis Acute respiratory failure with hypoxia -likely COVID-19 related given recent exposure and O2 needs. Also with left lower lobe pneumonia likely gram- negative. (Continue Covid protocol) Acute respiratory failure with hypercapnia - likely also COVID 19 related or COPD from his chronic asthma with retention Pneumonia - Multifocal interstitial and alveolar infiltrate with suspected partial left lower lobe consolidation. Will treat as gram negative Small bilateral pleural effusions - will monitor Hypotension - likely related to prolonged hypoxemia, sepsis from pneumonia, covid 19, will fluid challenge. HTN - hold amlodipine Asthma - moderate persistent by history, cont singulair, will order inhalers from pharmacy Obesity - counseled on weight management DOROTHEA - likely from vasomotor nephropathy, will hydrate, monitor renal function Sepsis - with leukopenia, RR elevated, will cont antibiotics and fluids Continue ICU monitoring Home meds DVT prophylaxis Full code Appreciate subspecialist input Prognosis guarded Per pulmonary recommendations please see the following; 1. Acute on chronic hypercapnic/ hypoxemic respiratory failure, worsening 2. Abnormal x-ray compatible with pneumonia, COVID-19. 3. COVID-19 viral pneumonia. 4. COVID-19 exposure. 5. Hypotension,---resolved 6. Asthma, mild in nature. The patient uses p.r.n. albuterol and Singulair. 7. Obesity. 8. Acute kidney injury---resolved Plan Plan . Obtain ABG this am for AMS, as suspected pt. is hypercarbic PC02 uis 81 on BIPAP D/C vapotherm, BIPAP 22/6 rate 24 with Fi02 to 85 %, monitor respiratory status closely for need for intubation Follow CXR/ABG Continue steroids for full ten day course, started on 04/28/20 ok to D/C on 05/08/20 Has completed full course of Remdesvir Covid positive TPN for nutritional Support Place PICC line DVT/GI PPX Comment Review of Relevant I have reviewed the following items ruby (where applicable) has been applied. Justifications for Admission Other Justification VERONICA CONN III DO May 06, 2020 11:33
[2020-05-06 12:21] LABS: MAGNESIUM 2.3 mg/dL (1.8-2.4); PHOSPHORUS 4.1 mg/dL (2.6-4.7)
[2020-05-06] MEDS: TPN PER PHARMACY MC PRN (13:00)
--- NOTE | 2020-05-06 13:01 | NUR ---
Pharmacy TPN Dosing Note S: NANCY BARTH is a 69 year old M Currently receiving Central Continuous TPN started 05/06/20 B:Pertinent PMH: PROLONGED NPO, UNABLE TO TOLERATE OFF BIPAP Height: 6 feet, 0 inches Weight: 108.5 kg Current diet: CARDIAC LABS: Sodium: 144 Potassium: 4.3 Chloride: 104 Calcium: 8.7 Corrected Calcium: 9.82 Magnesium: 2.3 CO2: 39 SCr: 1 Glucose: 76 Albumin: 2.6 AST: 21 ALT: 19 TPN FORMULA: TPN TYPE: Central Continuous AMINO ACIDS: 60 gm DEXTROSE: 195 gm LIPIDS: 20 gm SODIUM CHLORIDE: 90 mEq SODIUM ACETATE: mEq SODIUM PHOSPHATE: mmol POTASSIUM CHLORIDE: 25 mEq POTASSIUM ACETATE: mEq POTASSIUM PHOSPHATE: 13.6 mmol MAGNESIUM: 10 mEq CALCIUM: 10 mEq INSULIN: units MULTIPLE VITAMIN: 5 ml TRACE ELEMENTS: 1 ml(s) TPN PLAN: Pt unable to tolerate off bipap, TPN to start tonight Standard formula w/ exception of decreasing amount of KCL to 25meq (K has been over 5 several times this admission) Labs in the am R: Begin TPN as written above. Will monitor electrolytes, glucose, and tolerance to TPN. SIA GILL [facility], 05/06/20 [id number]
--- NOTE | 2020-05-06 20:58 | RAD ---
XR CHEST 1V History: Reason: PICC line placement / Spl. Instructions: / History: Comparison: May 04, 2020 Findings: Interval placement right PICC with tip projecting over the right atrium. Multifocal pulmonary consoli dations with improved aeration of the right upper lobe. Elevation the right hemidiaphragm, unchanged. Small left pleural effusion, unchanged. Unchanged heart size. No pneumothorax. Impression: 1. Interval placement right PICC with tip projecting over the right atrium. Consider retraction. 2. Multifocal pulmonary consolidations with improved aeration of the right upper lobe. Electronically signed by: Tj Crum DO (05/06/2020 8:56 PM) [facility]
[2020-05-06] MEDS: MONTELUKAST SODIUM 10 MG TABLET. PO SCH (21:20)
[2020-05-06] MEDS: ZOLPIDEM 5 MG TABLET. PO PRN (21:36)
[2020-05-06] MEDS ORDERED: DEXTROSE 70% IV SCH (22:00)
[2020-05-06] MEDS ORDERED: TOTAL PARENTERAL NUTRITION IV SCH (22:00)
[2020-05-06] MEDS ORDERED: [UNRECOGNIZED DRUG - OTHER] IV SCH (22:00)
[2020-05-06] MEDS ORDERED: AMINO ACID IV SCH (22:00)
[2020-05-07] VITALS (22 sets, daily range): BP systolic 110–155; BP diastolic 62–90
[2020-05-07 05:55] LABS: BASO % 1 % (0-3); EOS # 0.1 x10^3/uL (0.0-0.7); EOS % 2 % (0-3); HEMATOCRIT 39.1 % (39.0-53.0); LYMPH # 0.7 x10^3/uL (1.0-4.8); LYMPH % 12 % (24-48); MEAN CORPUSCULAR HEMOGLOBIN 30 pg (25-35); MEAN CORPUSCULAR HGB CONC 33 g/dL (31-37); MEAN CORPUSCULAR VOLUME 91 fL (79-100); MONO # 0.5 x10^3/uL (0.0-1.1); MONO % 8 % (0-9); NEUT # 4.5 x10^3/uL (1.8-7.7); NEUT % 77 % (31-73); PLATELET COUNT 176 x10^3/uL (140-400); RED BLOOD COUNT 4.33 x10^6/uL (4.30-5.70); RED CELL DISTRIBUTION WIDTH 14.8 % (11.5-14.5); WHITE BLOOD COUNT 5.8 x10^3/uL (4.0-11.0)
[2020-05-07 06:09] LABS: CALCIUM 8.5 mg/dL (8.5-10.1); CREATININE 0.8 mg/dL (0.7-1.3); GFR 96.1
[2020-05-07 06:15] LABS: MAGNESIUM 2.3 mg/dL (1.8-2.4); PHOSPHORUS 3.9 mg/dL (2.6-4.7)
[2020-05-07] MEDS: INSULIN LISPRO 300 UNITS/3 ML VIAL. SQ SCH ×3 (08:00→17:00)
--- NOTE | 2020-05-07 08:20 | PDOC ---
PULMONARY PROGRESS NOTES DATE: 05/07/20 TIME: 08:20 Subjective Remains on BIPAP 80% no overnight events Vitals Vital Signs Date Time Temp Pulse Resp B/P (MAP) Pulse Ox O2 Delivery O2 Flow Rate FiO2 05/07/20 08:00 35.0 05/07/20 08:00 98.9 57 22 135/74 (94) 97 BiPAP/CPAP 98.9 Comments visual exam preformed RRR BIPAP no accessory muscle use no edema General: Alert, No acute distress Lungs: Clear Extremities: No Edema Skin: Warm, Dry Labs Laboratory Tests Test 05/06/20 07:30 05/06/20 11:00 05/07/20 05:25 White Blood Count 6.0 x10^3/uL (4.0-11.0) 5.8 x10^3/uL (4.0-11.0) Red Blood Count 4.62 x10^6/uL (4.30-5.70) 4.33 x10^6/uL (4.30-5.70) Hemoglobin 14.0 g/dL (13.0-17.5) 13.0 g/dL (13.0-17.5) Hematocrit 42.0 % (39.0-53.0) 39.1 % (39.0-53.0) Mean Corpuscular Volume 91 fL (79-100) 91 fL (79-100) Mean Corpuscular Hemoglobin 30 pg (25-35) 30 pg (25-35) Mean Corpuscular Hemoglobin Concent 33 g/dL (31-37) 33 g/dL (31-37) Red Cell Distribution Width 15.2 % (11.5-14.5) 14.8 % (11.5-14.5) Platelet Count 190 x10^3/uL (140-400) 176 x10^3/uL (140-400) Neutrophils (%) (Auto) 81 % (31-73) 77 % (31-73) Lymphocytes (%) (Auto) 9 % (24-48) 12 % (24-48) Monocytes (%) (Auto) 7 % (0-9) 8 % (0-9) Eosinophils (%) (Auto) 2 % (0-3) 2 % (0-3) Basophils (%) (Auto) 1 % (0-3) 1 % (0-3) Neutrophils # (Auto) 4.8 x10^3/uL (1.8-7.7) 4.5 x10^3/uL (1.8-7.7) Lymphocytes # (Auto) 0.5 x10^3/uL (1.0-4.8) 0.7 x10^3/uL (1.0-4.8) Monocytes # (Auto) 0.4 x10^3/uL (0.0-1.1) 0.5 x10^3/uL (0.0-1.1) Eosinophils # (Auto) 0.1 x10^3/uL (0.0-0.7) 0.1 x10^3/uL (0.0-0.7) Basophils # (Auto) 0.1 x10^3/uL (0.0-0.2) 0.0 x10^3/uL (0.0-0.2) Sodium Level 144 mmol/L (136-145) 143 mmol/L (136-145) Potassium Level 4.3 mmol/L (3.5-5.1) 4.0 mmol/L (3.5-5.1) Chloride Level 104 mmol/L (98-107) 104 mmol/L (98-107) Carbon Dioxide Level 39 mmol/L (21-32) 38 mmol/L (21-32) Anion Gap 1 (6-14) 1 (6-14) Blood Urea Nitrogen 20 mg/dL (8-26) 16 mg/dL (8-26) Creatinine 1.0 mg/dL (0.7-1.3) 0.8 mg/dL (0.7-1.3) Estimated GFR (Cockcroft-Gault) 74.3 96.1 Glucose Level 76 mg/dL (70-99) 103 mg/dL (70-99) Calcium Level 8.7 mg/dL (8.5-10.1) 8.5 mg/dL (8.5-10.1) Phosphorus Level 4.1 mg/dL (2.6-4.7) 3.9 mg/dL (2.6-4.7) Magnesium Level 2.3 mg/dL (1.8-2.4) 2.3 mg/dL (1.8-2.4) O2 Saturation 97 % (92-99) Arterial Blood pH 7.29 (7.35-7.45) Arterial Blood pCO2 at Patient Temp 81 mmHg (35-46) Arterial Blood pO2 at Patient Temp 96 mmHg (65-108) Arterial Blood HCO3 38 mmol/L (21-28) Arterial Blood Base Excess 8 mmol/L (-3-3) FiO2 100 Triglycerides Level 141 mg/dL (0-150) Laboratory Tests Test 05/06/20 11:00 05/07/20 05:25 O2 Saturation 97 % (92-99) Arterial Blood pH 7.29 (7.35-7.45) Arterial Blood pCO2 at Patient Temp 81 mmHg (35-46) Arterial Blood pO2 at Patient Temp 96 mmHg (65-108) Arterial Blood HCO3 38 mmol/L (21-28) Arterial Blood Base Excess 8 mmol/L (-3-3) FiO2 100 White Blood Count 5.8 x10^3/uL (4.0-11.0) Red Blood Count 4.33 x10^6/uL (4.30-5.70) Hemoglobin 13.0 g/dL (13.0-17.5) Hematocrit 39.1 % (39.0-53.0) Mean Corpuscular Volume 91 fL (79-100) Mean Corpuscular Hemoglobin 30 pg (25-35) Mean Corpuscular Hemoglobin Concent 33 g/dL (31-37) Red Cell Distribution Width 14.8 % (11.5-14.5) Platelet Count 176 x10^3/uL (140-400) Neutrophils (%) (Auto) 77 % (31-73) Lymphocytes (%) (Auto) 12 % (24-48) Monocytes (%) (Auto) 8 % (0-9) Eosinophils (%) (Auto) 2 % (0-3) Basophils (%) (Auto) 1 % (0-3) Neutrophils # (Auto) 4.5 x10^3/uL (1.8-7.7) Lymphocytes # (Auto) 0.7 x10^3/uL (1.0-4.8) Monocytes # (Auto) 0.5 x10^3/uL (0.0-1.1) Eosinophils # (Auto) 0.1 x10^3/uL (0.0-0.7) Basophils # (Auto) 0.0 x10^3/uL (0.0-0.2) Sodium Level 143 mmol/L (136-145) Potassium Level 4.0 mmol/L (3.5-5.1) Chloride Level 104 mmol/L (98-107) Carbon Dioxide Level 38 mmol/L (21-32) Anion Gap 1 (6-14) Blood Urea Nitrogen 16 mg/dL (8-26) Creatinine 0.8 mg/dL (0.7-1.3) Estimated GFR (Cockcroft-Gault) 96.1 Glucose Level 103 mg/dL (70-99) Calcium Level 8.5 mg/dL (8.5-10.1) Phosphorus Level 3.9 mg/dL (2.6-4.7) Magnesium Level 2.3 mg/dL (1.8-2.4) Triglycerides Level 141 mg/dL (0-150) Medications Active Scripts Medications Dose Route/Sig Max Daily Dose Days Date Category Medrol (Methylprednisolone) 4 Mg Tab.ds.pk 1 Pkg PO UD 06/28/15 Reported Norvasc (Amlodipine Besylate) 5 Mg Tablet 1 Tab PO DAILY 06/22/15 Reported Proair Hfa Inhaler (Albuterol Sulfate) 8.5 Gm Hfa.aer.ad 1 Puff INH PRN Q6HRS PRN 06/22/15 Reported Advair 250-50 Diskus (Fluticasone/Salmeterol) 1 Each Disk.w.dev 1 Inh IH BID 06/22/15 Reported Singulair Tablet (Montelukast Sodium) 10 Mg Tablet 10 Mg PO HS 01/15/14 Reported Comments CXR IMPRESSION: 1. Stable patchy bilateral opacities. 2. Stable small bilateral pleural effusions. Impression . 1. Acute on chronic hypercapnic/ hypoxemic respiratory failure, worsening 2. Abnormal x-ray compatible with pneumonia, COVID-19. 3. COVID-19 viral pneumonia. 4. COVID-19 exposure. 5. Hypotension,---resolved 6. Asthma, mild in nature. The patient uses p.r.n. albuterol and Singulair. 7. Obesity. 8. Acute kidney injury---resolved Plan . Continue BIPAP 13/10 rate 24 with Fi02 to 85 %, monitor respiratory status closely for need for intubation Follow CXR/ABG, reduce Fi02 to 70%, wean as tolerated Continue steroids for full ten day course, started on 04/28/20 ok to D/C on 05/08/20 Has completed full course of Remdesvir Covid positive TPN for nutritional Support HTN per PCP DVT/GI PPX Critical Care Time 0815-0845AM D/W RN and RT ASA LE MD May 07, 2020 08:20
[2020-05-07] MEDS: ZINC SULFATE 220 MG CAPSULE. PO SCH (08:31)
[2020-05-07] MEDS: THIAMINE 100 MG TABLET. PO SCH (08:31)
[2020-05-07] MEDS: LACTOBACILLUS RHAMNOSUS GG 1 CAPSULE. PO SCH ×2 (08:31→21:18)
[2020-05-07 08:42] LABS: BASE EXCESS ABG 8 mmol/L (-3-3); HCO3 ABG 37 mmol/L (21-28); PO2 ABG 88 mmHg (65-108); SAT O2 ABG 96 % (92-99)
[2020-05-07] MEDS: FAMOTIDINE 20 MG/2 ML VIAL IVP SCH ×2 (08:49→21:18)
[2020-05-07 08:50] LABS: FIO2 ABG 80%; PCO2 ABG 72 mmHg (35-46)
[2020-05-07] MEDS: ENOXAPARIN 40 MG/0.4 ML SYRINGE. SQ SCH ×2 (08:50→21:18)
[2020-05-07] MEDS: MORPHINE SULFATE 4 MG/ML VIAL. IV PRN (09:19)
[2020-05-07] MEDS: TPN PER PHARMACY MC PRN (12:04)
--- NOTE | 2020-05-07 12:04 | NUR ---
Pharmacy TPN Dosing Note S: NANCY BARTH is a 69 year old M Currently receiving Central Continuous TPN started 05/06/20 B:Pertinent PMH: PROLONGED NPO, UNABLE TO TOLERATE OFF BIPAP Height: 6 feet, 0 inches Weight: 108.4 kg Current diet: CARDIAC LABS: Sodium: 143 Potassium: 4 Chloride: 104 Calcium: 8.5 Corrected Calcium: 9.62 Magnesium: 2.3 CO2: 38 SCr: 0.8 Glucose: 103 Albumin: 2.6 AST: 21 ALT: 19 TPN FORMULA: TPN TYPE: Central Continuous AMINO ACIDS: 60 gm DEXTROSE: 195 gm LIPIDS: 20 gm SODIUM CHLORIDE: 90 mEq POTASSIUM CHLORIDE: 25 mEq POTASSIUM PHOSPHATE: 13.6 mmol MAGNESIUM: 10 mEq CALCIUM: 10 mEq MULTIPLE VITAMIN: 5 ml TRACE ELEMENTS: 1 ml TPN PLAN: -Continue same macros per audio/visual operator. -Electrolytes appear WNL and stable, no changes in TPN. -Serum TG 141 - okay to continue lipid component. -BMP, mag, phos tomorrow per protocol. R: Continue TPN @ current rate and above formula. Will monitor electrolytes, glucose, and tolerance to TPN. PRASHANT HAILE [facility], 05/07/20 [id number]
--- NOTE | 2020-05-07 13:15 | PDOC ---
[employer] PROGRESS NOTE Date of Service DOS: DATE: 05/07/20 TIME: 13:14 Chief Complaint Chief Complaint COVID-19 respiratory failure and hypercapnia and COPD and pneumonia Small bilateral pleural effusions Hypotension HTN Asthma Obesity DOROTHEA Sepsis History of Present Illness History of Present Illness 05/07/2020 Patient is on BiPAP Also getting IV TPN Chart reviewed 05/06/2020 Patient seen in the ICU Chart reviewed He is still on Vapotherm but pulmonary plans to discontinue it this morning and see how he does 05/05/2020 Patient seen and examined in the COVID-19 ICU He is currently on Vapotherm Appears weak but somewhat stable Chart reviewed Discussed with RN 05/04/2020 Patient seen and examined in the COVID-19 ICU He was just changed over to Vapotherm with 100% FiO2 On IV PPN Discussed with RN Chart reviewed He remains quite ill and very weak Mr Bertrand is a 69yo M w/ PMHX chronic persistent asthma, HTN, esophageal strictures, low testosterone, prior portal vein thrombus who presents to the ED at the insistence of his stepson with c/o difficulty breathing, cough, fever for the last 5 days. Patient was exposed to a [id number] who had COVID-19 infection last week. He went to his doctor today, his oxygen saturation was 70% on room air in the clinic. Therefore he was brought here by his son for evaluation. He has been having difficulty sleeping due to his shortness of breath. O2 saturations 62% on arrival improved with 15L facemask O2.. EKG was done at 1027, heart rate 70 beats per minute, sinus rhythm, no ST segme nt elevation Chest radiograph with multifocal interstitial and alveolar infiltrate with suspected partial left lower lobe consolidation as well as small bilateral pleural effusions. Labs with WBC 3.9, Hb 14.1, platelets 171, albumin 3.3, trop 0, BNP 1082, Na 138, K 4.3, BUN 49, Cr 1.7, glucose 115. Admitted for further care. 04/28: Overnight a bit confused. ABG 7.1 on 15 L. More short of breath 04/29: Patient was moved out of the ICU yesterday. Currently breathing on BiPAP, FiO2 50%. Afebrile, tachypneic. COVID-19 positive. Continue remdesivir, steroids, Rocephin, azithromycin, and supportive care. Cussed with RN. 04/30: Patient seen in ICU. Still breathing on BiPAP, FiO2 50%. Some hypokalemia today, will treat with Kayexalate and Lasix, as this will also help with bilateral pleural effusions. Continue remdesivir, steroids, antibiotics. 05/01: Afebrile, tachypneic, breathing on Vapotherm 40 L. Potassium improving, BUN improving. Last dose of remdesivir today. Continue steroids and antibiotics. Charts and labs reviewed. 05/02: Patient seen in [place] [address] ICU. Completed remdesivir. Afebrile. Currently breathing on 40 L Vapotherm. Continue steroids antibiotics, supportive care. No acute events overnight, discussed with RN. 05/03: Patient seen in [place] [address] ICU. He is breathing on BiPAP, FiO2 60%. He denies any chest pain or nausea. He is completed remdesivir and azithromycin treatments. Continue Rocephin. Discussed with RN, no acute events overnight. Vitals/I&O Vitals/I&O: Vital Signs Date Time Temp Pulse Resp B/P (MAP) Pulse Ox O2 Delivery O2 Flow Rate FiO2 05/07/20 13:03 98.6 56 30 126/72 (90) 96 98.6 05/07/20 12:03 Bi-pap 05/07/20 09:49 70.0 I & O 05/06/20 05/06/20 05/07/20 15:00 23:00 07:00 Intake Total 300 ml Output Total 595 ml 425 ml 650 ml Balance -595 ml -125 ml -650 ml Physical Exam General: mild distress Heart: Other (Tachycardic) Lungs: Clear Abdomen: Normal bowel sounds, Soft, No masses Extremities: No clubbing, No cyanosis Skin: No rashes, No breakdown Labs Labs: Laboratory Tests Test 05/07/20 05:25 05/07/20 08:40 White Blood Count 5.8 x10^3/uL (4.0-11.0) Red Blood Count 4.33 x10^6/uL (4.30-5.70) Hemoglobin 13.0 g/dL (13.0-17.5) Hematocrit 39.1 % (39.0-53.0) Mean Corpuscular Volume 91 fL (79-100) Mean Corpuscular Hemoglobin 30 pg (25-35) Mean Corpuscular Hemoglobin Concent 33 g/dL (31-37) Red Cell Distribution Width 14.8 % (11.5-14.5) Platelet Count 176 x10^3/uL (140-400) Neutrophils (%) (Auto) 77 % (31-73) Lymphocytes (%) (Auto) 12 % (24-48) Monocytes (%) (Auto) 8 % (0-9) Eosinophils (%) (Auto) 2 % (0-3) Basophils (%) (Auto) 1 % (0-3) Neutrophils # (Auto) 4.5 x10^3/uL (1.8-7.7) Lymphocytes # (Auto) 0.7 x10^3/uL (1.0-4.8) Monocytes # (Auto) 0.5 x10^3/uL (0.0-1.1) Eosinophils # (Auto) 0.1 x10^3/uL (0.0-0.7) Basophils # (Auto) 0.0 x10^3/uL (0.0-0.2) Sodium Level 143 mmol/L (136-145) Potassium Level 4.0 mmol/L (3.5-5.1) Chloride Level 104 mmol/L (98-107) Carbon Dioxide Level 38 mmol/L (21-32) Anion Gap 1 (6-14) Blood Urea Nitrogen 16 mg/dL (8-26) Creatinine 0.8 mg/dL (0.7-1.3) Estimated GFR (Cockcroft-Gault) 96.1 Glucose Level 103 mg/dL (70-99) Calcium Level 8.5 mg/dL (8.5-10.1) Phosphorus Level 3.9 mg/dL (2.6-4.7) Magnesium Level 2.3 mg/dL (1.8-2.4) Triglycerides Level 141 mg/dL (0-150) O2 Saturation 96 % (92-99) Arterial Blood pH 7.33 (7.35-7.45) Arterial Blood pCO2 at Patient Temp 72 mmHg (35-46) Arterial Blood pO2 at Patient Temp 88 mmHg (65-108) Arterial Blood HCO3 37 mmol/L (21-28) Arterial Blood Base Excess 8 mmol/L (-3-3) FiO2 80% Assessment and Plan Assessmemt and Plan Problems Medical Problems: (1) Pneumonia due to COVID-19 virus Status: Acute (2) Respiratory failure Status: Acute Acute COVID-19 respiratory failure and hypercapnia and COPD and pneumonia Small bilateral pleural effusions Hypotension HTN Asthma Obesity DOROTHEA Sepsis Pneumonia - Multifocal interstitial and alveolar infiltrate with suspected partial left lower lobe consolidation. Will treat as gram negative Small bilateral pleural effusions - will monitor Hypotension - likely related to prolonged hypoxemia, sepsis from pneumonia, covid 19, will fluid challenge. HTN - hold amlodipine Asthma - moderate persistent by history, cont singulair, will order inhalers fro m pharmacy Obesity - counseled on weight management DOROTHEA - likely from vasomotor nephropathy, will hydrate, monitor renal function Sepsis - with leukopenia, RR elevated, will cont antibiotics and fluids Continue ICU monitoring Home meds DVT prophylaxis Full code Appreciate subspecialist input Prognosis guarded Comment Review of Relevant I have reviewed the following items ruby (where applicable) has been applied. Medications: Current Medications Medications (Trade) Dose Ordered Sig/Alondra Route PRN Reason Start Time Stop Time Status Last Admin Dose Admin Sodium Chloride 90 meq/Potassium Chloride 25 meq/ Potassium Phosphate 13.6 mmol/Magnesium Sulfate 10 meq/ Calcium Gluconate 10 meq/ Multivitamins 5 ml/Zinc/Copper/ Manganese/ Selenium 1 ml/ Total Parenteral Nutrition/Amino Acids/Dextrose/ Fat Emulsion Intravenous 1,512 ml @ 63 mls/hr TPN CONT IV 05/06/20 22:00 05/07/20 21:59 05/06/20 21:21 Justifications for Admission Other Justification VERONICA CONN III DO May 07, 2020 13:15
[2020-05-07 17:01] LABS: BASE EXCESS ABG 10 mmol/L (-3-3); HCO3 ABG 39 mmol/L (21-28); PO2 ABG 66 mmHg (65-108); SAT O2 ABG 93 % (92-99)
[2020-05-07 17:39] LABS: FIO2 ABG 50%; PCO2 ABG 71 mmHg (35-46)
[2020-05-07] MEDS: MONTELUKAST SODIUM 10 MG TABLET. PO SCH (21:18)
[2020-05-07] MEDS ORDERED: TOTAL PARENTERAL NUTRITION IV SCH (22:00)
[2020-05-07] MEDS ORDERED: DEXTROSE 70% IV SCH (22:00)
[2020-05-07] MEDS ORDERED: AMINO ACID IV SCH (22:00)
[2020-05-07] MEDS ORDERED: [UNRECOGNIZED DRUG - OTHER] IV SCH (22:00)
[2020-05-07] MEDS: ZOLPIDEM 5 MG TABLET. PO PRN (22:13)
[2020-05-07] MEDS: NAPROXEN 500 MG TABLET PO PRN (22:13)
[2020-05-08] VITALS (19 sets, daily range): BP systolic 96–166; BP diastolic 60–95
--- NOTE | 2020-05-08 05:00 | RAD ---
EXAM: AP View of the chest DATE: 05/08/2020 3:26 AM INDICATION: Respiratory failure COMPARISON: 05/06/2020 05/04/2020 FINDINGS: Heart is mildly enlarged. Aorta is tortuous. Right upper extremity PICC tip projects over the right a trium. Bilateral parenchymal airspace opacities are mildly progressed. Trace bilateral pleural effusions. No pneumothorax. IMPRESSION: Bilateral parenchymal airspace opacities are mildly progressed Support lines and tubes as above. Electronically signed by: Donald Kent MD (05/08/2020 4:57 AM) [facility]
[2020-05-08 05:57] LABS: BLOOD UREA NITROGEN 15 mg/dL (8-26); CALCIUM 8.9 mg/dL (8.5-10.1); CARBON DIOXIDE 36 mmol/L (21-32); CHLORIDE 101 mmol/L (98-107); CREATININE 0.7 mg/dL (0.7-1.3); GFR 112.1; GLUCOSE 127 mg/dL (70-99); MAGNESIUM 2.4 mg/dL (1.8-2.4); PHOSPHORUS 2.8 mg/dL (2.6-4.7); SODIUM 136 mmol/L (136-145)
[2020-05-08] MEDS ORDERED: DEXAMETHASONE SOD PHOS 4 MG/ML VIAL IVP SCH (08:00)
[2020-05-08] MEDS: INSULIN LISPRO 300 UNITS/3 ML VIAL. SQ SCH ×3 (08:00→17:00)
--- NOTE | 2020-05-08 08:41 | PDOC ---
PULMONARY PROGRESS NOTES DATE: 05/08/20 TIME: 08:41 Subjective Remains on BIPAP 80% no overnight events Vitals Vital Signs Date Time Temp Pulse Resp B/P (MAP) Pulse Ox O2 Delivery O2 Flow Rate FiO2 05/08/20 08:28 96 BiPAP/CPAP 05/08/20 06:00 52 29 103/69 (80) 05/08/20 04:00 97.7 97.7 05/07/20 09:49 70.0 Comments visual exam preformed RRR BIPAP no accessory muscle use no edema General: Alert, No acute distress Lungs: Clear Cardiovascular: S1, S2 Abdomen: Soft Neuro Exam: Alert, Oriented Extremities: No Edema Skin: Warm, Dry Labs Laboratory Tests Test 05/06/20 11:00 05/06/20 22:35 05/07/20 05:25 05/07/20 08:40 O2 Saturation 97 % (92-99) 96 % (92-99) Arterial Blood pH 7.29 (7.35-7.45) 7.33 (7.35-7.45) Arterial Blood pCO2 at Patient Temp 81 mmHg (35-46) 72 mmHg (35-46) Arterial Blood pO2 at Patient Temp 96 mmHg (65-108) 88 mmHg (65-108) Arterial Blood HCO3 38 mmol/L (21-28) 37 mmol/L (21-28) Arterial Blood Base Excess 8 mmol/L (-3-3) 8 mmol/L (-3-3) FiO2 100 80% Glucose (Fingerstick) 117 mg/dL (70-99) White Blood Count 5.8 x10^3/uL (4.0-11.0) Red Blood Count 4.33 x10^6/uL (4.30-5.70) Hemoglobin 13.0 g/dL (13.0-17.5) Hematocrit 39.1 % (39.0-53.0) Mean Corpuscular Volume 91 fL (79-100) Mean Corpuscular Hemoglobin 30 pg (25-35) Mean Corpuscular Hemoglobin Concent 33 g/dL (31-37) Red Cell Distribution Width 14.8 % (11.5-14.5) Platelet Count 176 x10^3/uL (140-400) Neutrophils (%) (Auto) 77 % (31-73) Lymphocytes (%) (Auto) 12 % (24-48) Monocytes (%) (Auto) 8 % (0-9) Eosinophils (%) (Auto) 2 % (0-3) Basophils (%) (Auto) 1 % (0-3) Neutrophils # (Auto) 4.5 x10^3/uL (1.8-7.7) Lymphocytes # (Auto) 0.7 x10^3/uL (1.0-4.8) Monocytes # (Auto) 0.5 x10^3/uL (0.0-1.1) Eosinophils # (Auto) 0.1 x10^3/uL (0.0-0.7) Basophils # (Auto) 0.0 x10^3/uL (0.0-0.2) Sodium Level 143 mmol/L (136-145) Potassium Level 4.0 mmol/L (3.5-5.1) Chloride Level 104 mmol/L (98-107) Carbon Dioxide Level 38 mmol/L (21-32) Anion Gap 1 (6-14) Blood Urea Nitrogen 16 mg/dL (8-26) Creatinine 0.8 mg/dL (0.7-1.3) Estimated GFR (Cockcroft-Gault) 96.1 Glucose Level 103 mg/dL (70-99) Calcium Level 8.5 mg/dL (8.5-10.1) Phosphorus Level 3.9 mg/dL (2.6-4.7) Magnesium Level 2.3 mg/dL (1.8-2.4) Triglycerides Level 141 mg/dL (0-150) Test 05/07/20 17:00 05/07/20 17:22 05/08/20 05:25 05/08/20 07:50 O2 Saturation 93 % (92-99) Arterial Blood pH 7.35 (7.35-7.45) Arterial Blood pCO2 at Patient Temp 71 mmHg (35-46) Arterial Blood pO2 at Patient Temp 66 mmHg (65-108) Arterial Blood HCO3 39 mmol/L (21-28) Arterial Blood Base Excess 10 mmol/L (-3-3) FiO2 50% Glucose (Fingerstick) 107 mg/dL (70-99) 110 mg/dL (70-99) Sodium Level 136 mmol/L (136-145) Potassium Level 4.0 mmol/L (3.5-5.1) Chloride Level 101 mmol/L (98-107) Carbon Dioxide Level 36 mmol/L (21-32) Anion Gap (6-14) Blood Urea Nitrogen 15 mg/dL (8-26) Creatinine 0.7 mg/dL (0.7-1.3) Estimated GFR (Cockcroft-Gault) 112.1 Glucose Level 127 mg/dL (70-99) Calcium Level 8.9 mg/dL (8.5-10.1) Phosphorus Level 2.8 mg/dL (2.6-4.7) Magnesium Level 2.4 mg/dL (1.8-2.4) Laboratory Tests Test 05/07/20 17:00 05/07/20 17:22 05/08/20 05:25 05/08/20 07:50 O2 Saturation 93 % (92-99) Arterial Blood pH 7.35 (7.35-7.45) Arterial Blood pCO2 at Patient Temp 71 mmHg (35-46) Arterial Blood pO2 at Patient Temp 66 mmHg (65-108) Arterial Blood HCO3 39 mmol/L (21-28) Arterial Blood Base Excess 10 mmol/L (-3-3) FiO2 50% Glucose (Fingerstick) 107 mg/dL (70-99) 110 mg/dL (70-99) Sodium Level 136 mmol/L (136-145) Potassium Level 4.0 mmol/L (3.5-5.1) Chloride Level 101 mmol/L (98-107) Carbon Dioxide Level 36 mmol/L (21-32) Anion Gap (6-14) Blood Urea Nitrogen 15 mg/dL (8-26) Creatinine 0.7 mg/dL (0.7-1.3) Estimated GFR (Cockcroft-Gault) 112.1 Glucose Level 127 mg/dL (70-99) Calcium Level 8.9 mg/dL (8.5-10.1) Phosphorus Level 2.8 mg/dL (2.6-4.7) Magnesium Level 2.4 mg/dL (1.8-2.4) Medications Active Scripts Medications Dose Route/Sig Max Daily Dose Days Date Category Medrol (Methylprednisolone) 4 Mg Tab.ds.pk 1 Pkg PO UD 06/28/15 Reported Norvasc (Amlodipine Besylate) 5 Mg Tablet 1 Tab PO DAILY 06/22/15 Reported Proair Hfa Inhaler (Albuterol Sulfate) 8.5 Gm Hfa.aer.ad 1 Puff INH PRN Q6HRS PRN 06/22/15 Reported Advair 250-50 Diskus (Fluticasone/Salmeterol) 1 Each Disk.w.dev 1 Inh IH BID 06/22/15 Reported Singulair Tablet (Montelukast Sodium) 10 Mg Tablet 10 Mg PO HS 01/15/14 Reported Comments CXR IMPRESSION: Bilateral parenchymal airspace opacities are mildly progressed Support lines and tubes as above. Impression . 1. Acute on chronic hypercapnic/ hypoxemic respiratory failure,ongoing 2. Abnormal x-ray compatible with pneumonia, COVID-19. 3. COVID-19 viral pneumonia. 4. COVID-19 exposure. 5. Hypotension,---resolved 6. Asthma, mild in nature. The patient uses p.r.n. albuterol and Singulair. 7. Obesity. 8. Acute kidney injury---resolved Plan . Continue BIPAP / rate 24 with Fi02 50% Follow CXR/ABG, trial Venti mask w/ meals D/C steroids for full ten day course, Has completed full course of Remdesvir Covid positive TPN for nutritional Support HTN per PCP DVT/GI PPX Critical Care Time 1115-1145AM D/W RN and RT ASA LE MD May 08, 2020 08:41
[2020-05-08 08:43] LABS: BASE EXCESS ABG 7 mmol/L (-3-3); HCO3 ABG 34 mmol/L (21-28); PCO2 ABG 58 mmHg (35-46); PO2 ABG 70 mmHg (65-108); SAT O2 ABG 94 % (92-99)
[2020-05-08] MEDS: LACTOBACILLUS RHAMNOSUS GG 1 CAPSULE. PO SCH ×2 (09:14→21:39)
[2020-05-08] MEDS: FAMOTIDINE 20 MG/2 ML VIAL IVP SCH ×2 (09:14→21:39)
[2020-05-08] MEDS: ZINC SULFATE 220 MG CAPSULE. PO SCH (09:14)
[2020-05-08] MEDS: THIAMINE 100 MG TABLET. PO SCH (09:14)
[2020-05-08] MEDS: ENOXAPARIN 40 MG/0.4 ML SYRINGE. SQ SCH ×2 (09:15→21:39)
--- NOTE | 2020-05-08 11:02 | PDOC ---
[facility] PROGRESS NOTE Date of Service DOS: DATE: 05/08/20 TIME: 11:00 Chief Complaint Chief Complaint COVID-19 respiratory failure and hypercapnia and COPD and pneumonia Small bilateral pleural effusions Hypotension HTN Asthma Obesity DOROTHEA Sepsis History of Present Illness History of Present Illness 05/07/2019 Patient still on BiPAP Also on IV TPN Chart reviewed 05/07/2020 Patient is on BiPAP Also getting IV TPN Chart reviewed 05/06/2020 Patient seen in the ICU Chart reviewed He is still on Vapotherm but pulmonary plans to discontinue it this morning and see how he does 05/05/2020 Patient seen and examined in the [place] [address] ICU He is currently on Vapotherm Appears weak but somewhat stable Chart reviewed Discussed with RN 05/04/2020 Patient seen and examined in the [facility] ICU He was just changed over to Vapotherm with 100% FiO2 On IV PPN Discussed with RN Chart reviewed He remains quite ill and very weak Mr Bertrand is a 69yo M w/ PMHX chronic persistent asthma, HTN, esophageal strictures, low testosterone, prior portal vein thrombus who presents to the ED at the insistence of his stepson with c/o difficulty breathing, cough, fever for the last 5 days. Patient was exposed to a [id number] who had COVID-19 infection last week. He went to his doctor today, his oxygen saturation was 70% on room air in the clinic. Therefore he was brought here by his son for evaluation. He has been having difficulty sleeping due to his shortness of breath. O2 saturations 62% on arrival improved with 15L facemask O2.. EKG was done at 1027, heart rate 70 beats per minute, sinus rhythm, no ST segment elevation Chest radiograph with multifocal interstitial and alveolar infiltrate with suspected partial left lower lobe consolidation as well as small bilateral pleural effusions. Labs with WBC 3.9, Hb 14.1, platelets 171, albumin 3.3, trop 0, BNP 1082, Na 138, K 4.3, BUN 49, Cr 1.7, glucose 115. Admitted for further care. 04/28: Overnight a bit confused. ABG 7.1 / on 15 L. More short of breath 04/29: Patient was moved out of the ICU yesterday. Currently breathing on BiPAP, FiO2 50%. Afebrile, tachypneic. COVID-19 positive. Continue remdesivir, steroids, Rocephin, azithromycin, and supportive care. Cussed with RN. 04/30: Patient seen in ICU. Still breathing on BiPAP, FiO2 50%. Some hypokalemia today, will treat with Kayexalate and Lasix, as this will also help with bilateral pleural effusions. Continue remdesivir, steroids, antibiotics. 05/01: Afebrile, tachypneic, breathing on Vapotherm 40 L. Potassium improving, BUN improving. Last dose of remdesivir today. Continue steroids and antibiotics. Charts and labs reviewed. 05/02: Patient seen in [place] [address] ICU. Completed remdesivir. Afebrile. Currently breathing on 40 L Vapotherm. Continue steroids antibiotics, supportive care. No acute events overnight, discussed with RN. 05/03: Patient seen in [place] [address] ICU. He is breathing on BiPAP, FiO2 60%. He denies any chest pain or nausea. He is completed remdesivir and azithromycin treatments. Continue Rocephin. Discussed with RN, no acute events overnight. Vitals/I&O Vitals/I&O: Vital Signs Date Time Temp Pulse Resp B/P (MAP) Pulse Ox O2 Delivery O2 Flow Rate FiO2 05/08/20 09:00 52 31 113/69 (84) 95 BiPAP/CPAP 05/08/20 07:00 97.0 97.0 05/07/20 09:49 70.0 I & O 05/07/20 05/07/20 05/08/20 15:00 23:00 07:00 Intake Total 1389 ml 1869 ml Output Total 470 ml 790 ml 465 ml Balance -470 ml 599 ml 1404 ml Physical Exam General: mild distress Heart: Other (Tachycardic) Lungs: Crackles Abdomen: Normal bowel sounds, Soft, No masses Extremities: No clubbing, No cyanosis Skin: No rashes, No breakdown Labs Labs: Laboratory Tests Test 05/07/20 17:00 05/07/20 17:22 05/08/20 05:25 05/08/20 07:50 O2 Saturation 93 % (92-99) Arterial Blood pH 7.35 (7.35-7.45) Arterial Blood pCO2 at Patient Temp 71 mmHg (35-46) Arterial Blood pO2 at Patient Temp 66 mmHg (65-108) Arterial Blood HCO3 39 mmol/L (21-28) Arterial Blood Base Excess 10 mmol/L (-3-3) FiO2 50% Glucose (Fingerstick) 107 mg/dL (70-99) 110 mg/dL (70-99) Sodium Level 136 mmol/L (136-145) Potassium Level 4.0 mmol/L (3.5-5.1) Chloride Level 101 mmol/L (98-107) Carbon Dioxide Level 36 mmol/L (21-32) Anion Gap (6-14) Blood Urea Nitrogen 15 mg/dL (8-26) Creatinine 0.7 mg/dL (0.7-1.3) Estimated GFR (Cockcroft-Gault) 112.1 Glucose Level 127 mg/dL (70-99) Calcium Level 8.9 mg/dL (8.5-10.1) Phosphorus Level 2.8 mg/dL (2.6-4.7) Magnesium Level 2.4 mg/dL (1.8-2.4) Test 05/08/20 08:00 O2 Saturation 94 % (92-99) Arterial Blood pH 7.39 (7.35-7.45) Arterial Blood pCO2 at Patient Temp 58 mmHg (35-46) Arterial Blood pO2 at Patient Temp 70 mmHg (65-108) Arterial Blood HCO3 34 mmol/L (21-28) Arterial Blood Base Excess 7 mmol/L (-3-3) FiO2 50/bipap Assessment and Plan Assessmemt and Plan Problems Medical Problems: (1) Pneumonia due to COVID-19 virus Status: Acute (2) Respiratory failure Status: Acute Rspiratory failure and hypercapnia and COPD and pneumonia Small bilateral pleural effusions Hypotension HTN Asthma Obesity DOROTHEA Sepsis Pneumonia Small bilateral pleural effusions - will monitor Plan ICU monitoring BiPAP Await further subspecialist input Trend labs IV antibiotic Beta agonist IV fluids DVT prophylaxis Full code Prognosis guarded Appreciate subspecialist input Comment Review of Relevant I have reviewed the following items ruby (where applicable) has been applied. Medications: Current Medications Medications (Trade) Dose Ordered Sig/Alondra Route PRN Reason Start Time Stop Time Status Last Admin Dose Admin Dexamethasone Sodium Phosphate (Decadron) 4 mg [id number] IVP 05/08/20 08:00 05/08/20 09:14 Sodium Chloride 90 meq/Potassium Chloride 25 meq/ Potassium Phosphate 13.6 mmol/Magnesium Sulfate 10 meq/ Calcium Gluconate 10 meq/ Multivitamins 5 ml/Zinc/Copper/ Manganese/ Selenium 1 ml/ Total Parenteral Nutrition/Amino Acids/Dextrose/ Fat Emulsion Intravenous 1,512 ml @ 63 mls/hr TPN CONT IV 05/07/20 22:00 05/08/20 21:59 05/07/20 21:49 Justifications for Admission Other Justification VERONICA CONN III DO May 08, 2020 11:02
[2020-05-08] MEDS: TPN PER PHARMACY MC PRN (12:39)
--- NOTE | 2020-05-08 12:39 | NUR ---
Pharmacy TPN Dosing Note S: NANCY BARTH is a 69 year old M Currently receiving Central Continuous TPN started 05/06/20 B:Pertinent PMH: PROLONGED NPO, UNABLE TO TOLERATE OFF BIPAP Height: 6 feet, 0 inches Weight: 105.8 kg Current diet: CARDIAC LABS: Sodium: 136 Potassium: 4 Chloride: 101 Calcium: 8.9 Corrected Calcium: 10.02 Magnesium: 2.4 CO2: 36 SCr: 0.7 Glucose: 127, 110 Albumin: 2.6 AST: 21 ALT: 19 TPN FORMULA: TPN TYPE: Central Continuous AMINO ACIDS: 60 gm DEXTROSE: 195 gm LIPIDS: 20 gm SODIUM CHLORIDE: 90 mEq POTASSIUM CHLORIDE: 25 mEq POTASSIUM PHOSPHATE: 13.6 mmol MAGNESIUM: 10 mEq CALCIUM: 10 mEq MULTIPLE VITAMIN: 5 ml TRACE ELEMENTS: 1 ml TPN PLAN: -Electrolytes appear WNL and stable, no changes in TPN. -BMP, mag, phos tomorrow per protocol. R: Continue TPN @ 63 ml/hr and above formula. Will monitor electrolytes, glucose, and tolerance to TPN. PRASHANT HAILE [facility], 05/08/20 [id number]
[2020-05-08] MEDS: MONTELUKAST SODIUM 10 MG TABLET. PO SCH (21:39)
[2020-05-08] MEDS: MORPHINE SULFATE 4 MG/ML VIAL. IV PRN (21:47)
[2020-05-08] MEDS ORDERED: [UNRECOGNIZED DRUG - OTHER] IV SCH (22:00)
[2020-05-08] MEDS ORDERED: AMINO ACID IV SCH (22:00)
[2020-05-08] MEDS ORDERED: DEXTROSE 70% IV SCH (22:00)
[2020-05-08] MEDS ORDERED: TOTAL PARENTERAL NUTRITION IV SCH (22:00)
--- NOTE | 2020-05-08 23:13 | NUR ---
Patient transferred to [facility] at approximately 2049. Patient tolerating venturi mask at 15L with O2 sat in the 90's. All vital signs stable and patient resting comfortably. DANIELA Orlando and nurse aid in pt's room upon arrival.
[2020-05-08] MEDS: ZOLPIDEM 5 MG TABLET. PO PRN (23:19)
--- NOTE | 2020-05-08 23:47 | NUR ---
RECEIVED PT FROM ICU UPON ARRIVAL TO ROOM 671 PT ALERT ORIENTED X3 ,ON VENT MASK SAY 93 % , PT APPEARS ANXIOUS, REASSURES PT AND DISCUSSED PLAN OF CARE AND MEDICATION . PT VERBALIZED UNDERSTANDING AND AGREEABLE
[2020-05-09 03:00] VITALS: BP 125/81
[2020-05-09 07:00] VITALS: BP 133/83
[2020-05-09] MEDS: INSULIN LISPRO 300 UNITS/3 ML VIAL. SQ SCH ×3 (08:00→16:13)
--- NOTE | 2020-05-09 08:43 | PDOC ---
PULMONARY PROGRESS NOTES DATE: 05/09/20 TIME: 08:42 Subjective was on bipap fi02 50% overnight now on 15 lpm sob better has occ cough is weak Vitals Vital Signs Date Time Temp Pulse Resp B/P (MAP) Pulse Ox O2 Delivery O2 Flow Rate FiO2 05/09/20 08:27 96 BiPAP/CPAP 05/09/20 04:00 15.0 05/09/20 03:00 55 26 125/81 (96) 05/08/20 23:08 97.4 97.4 Comments visual exam preformed alert no distress RRR BIPAP no accessory muscle use no edema General: Alert, No acute distress Neuro Exam: Alert, Oriented Skin: No Rashes Labs Laboratory Tests Test 05/07/20 17:00 05/07/20 17:22 05/08/20 05:25 05/08/20 07:50 O2 Saturation 93 % (92-99) Arterial Blood pH 7.35 (7.35-7.45) Arterial Blood pCO2 at Patient Temp 71 mmHg (35-46) Arterial Blood pO2 at Patient Temp 66 mmHg (65-108) Arterial Blood HCO3 39 mmol/L (21-28) Arterial Blood Base Excess 10 mmol/L (-3-3) FiO2 50% Glucose (Fingerstick) 107 mg/dL (70-99) 110 mg/dL (70-99) Sodium Level 136 mmol/L (136-145) Potassium Level 4.0 mmol/L (3.5-5.1) Chloride Level 101 mmol/L (98-107) Carbon Dioxide Level 36 mmol/L (21-32) Anion Gap (6-14) Blood Urea Nitrogen 15 mg/dL (8-26) Creatinine 0.7 mg/dL (0.7-1.3) Estimated GFR (Cockcroft-Gault) 112.1 Glucose Level 127 mg/dL (70-99) Calcium Level 8.9 mg/dL (8.5-10.1) Phosphorus Level 2.8 mg/dL (2.6-4.7) Magnesium Level 2.4 mg/dL (1.8-2.4) Test 05/08/20 08:00 O2 Saturation 94 % (92-99) Arterial Blood pH 7.39 (7.35-7.45) Arterial Blood pCO2 at Patient Temp 58 mmHg (35-46) Arterial Blood pO2 at Patient Temp 70 mmHg (65-108) Arterial Blood HCO3 34 mmol/L (21-28) Arterial Blood Base Excess 7 mmol/L (-3-3) FiO2 50/bipap Medications Active Scripts Medications Dose Route/Sig Max Daily Dose Days Date Category Medrol (Methylprednisolone) 4 Mg Tab.ds.pk 1 Pkg PO UD 06/28/15 Reported Norvasc (Amlodipine Besylate) 5 Mg Tablet 1 Tab PO DAILY 06/22/15 Reported Proair Hfa Inhaler (Albuterol Sulfate) 8.5 Gm Hfa.aer.ad 1 Puff INH PRN Q6HRS PRN 06/22/15 Reported Advair 250-50 Diskus (Fluticasone/Salmeterol) 1 Each Disk.w.dev 1 Inh IH BID 06/22/15 Reported Singulair Tablet (Montelukast Sodium) 10 Mg Tablet 10 Mg PO HS 01/15/14 Reported Comments CXR IMPRESSION: Bilateral parenchymal airspace opacities are mildly progressed Support lines and tubes as above. Impression . 1. Acute on chronic hypercapnic/ hypoxemic respiratory failure,ongoing 2. Abnormal x-ray compatible with pneumonia, COVID-19. 3. COVID-19 viral pneumonia. 4. COVID-19 exposure. 5. Hypotension,---resolved 6. Asthma, mild in nature. The patient uses p.r.n. albuterol and Singulair. 7. Obesity. 8. Acute kidney injury---resolved Plan . bipap prn during day, cont at night 02 titration to keep sat 90% Follow CXR/ABG, trial Venti mask w/ meals D/C steroids for full ten day course, Has completed full course of Remdesvir Covid positive HTN per PCP DVT/GI PPX D/W RN and RT EDWIN COLON MD May 09, 2020 08:43
[2020-05-09] MEDS: MORPHINE SULFATE 4 MG/ML VIAL. IV PRN ×2 (09:21→20:53)
[2020-05-09] MEDS: ENOXAPARIN 40 MG/0.4 ML SYRINGE. SQ SCH ×2 (09:23→20:55)
[2020-05-09] MEDS: ZINC SULFATE 220 MG CAPSULE. PO SCH (09:23)
[2020-05-09] MEDS: FAMOTIDINE 20 MG/2 ML VIAL IVP SCH ×2 (09:23→20:55)
[2020-05-09] MEDS: THIAMINE 100 MG TABLET. PO SCH (09:23)
[2020-05-09] MEDS: LACTOBACILLUS RHAMNOSUS GG 1 CAPSULE. PO SCH ×2 (09:23→20:55)
[2020-05-09 10:14] LABS: CALCIUM 9.2 mg/dL (8.5-10.1); CREATININE 0.7 mg/dL (0.7-1.3); GFR 112.1; MAGNESIUM 2.2 mg/dL (1.8-2.4); PHOSPHORUS 4.2 mg/dL (2.6-4.7)
--- NOTE | 2020-05-09 10:35 | PDOC ---
PROGRESS NOTES Date of Service: DATE: 05/09/20 TIME: 10:34 Chief Complaint Chief Complaint IMPRESSION COVID-19 respiratory failure and hypercapnia and COPD and pneumonia Small bilateral pleural effusions Hypotension HTN Asthma Obesity DOROTHEA Sepsis Follow CXR/ABG, trial Venti mask w/ meals D/C steroids for full ten day course, Has completed full course of Remdesvir Covid positive ON 15 LITERS HF NC 05-09 D/W RN History of Present Illness History of Present Illness 05/09/2019 Patient still on BiPAP AT HS Also on IV TPN Chart reviewed D/W RN CXR IN AM D/W RN 05/07/2020 Patient is on BiPAP Also getting IV TPN Chart reviewed 05/06/2020 Patient seen in the ICU Chart reviewed He is still on Vapotherm but pulmonary plans to discontinue it this morning and see how he does 05/05/2020 Patient seen and examined in the [place] [address] ICU He is currently on Vapotherm Appears weak but somewhat stable Chart reviewed Discussed with RN 05/04/2020 Patient seen and examined in the [place] [address] ICU He was just changed over to Vapotherm with 100% FiO2 On IV PPN Discussed with RN Chart reviewed He remains quite ill and very weak Mr Bertrand is a 69yo M w/ PMHX chronic persistent asthma, HTN, esophageal strictures, low testosterone, prior portal vein thrombus who presents to the ED at the insistence of his stepson with c/o difficulty breathing, cough, fever for the last 5 days. Patient was exposed to a [id number] who had COVID-19 infection last week. He went to his doctor today, his oxygen saturation was 70% on room air in the clinic. Therefore he was brought here by his son for evaluation. He has been having difficulty sleeping due to his shortness of breath. O2 saturations 62% on arrival improved with 15L facemask O2.. EKG was done at 1027, heart rate 70 beats per minute, sinus rhythm, no ST segment elevation Chest radiograph with multifocal interstitial and alveolar infiltrate with susp ected partial left lower lobe consolidation as well as small bilateral pleural effusions. Labs with WBC 3.9, Hb 14.1, platelets 171, albumin 3.3, trop 0, BNP 1082, Na 138, K 4.3, BUN 49, Cr 1.7, glucose 115. Admitted for further care. 04/28: Overnight a bit confused. ABG 7.1 on 15 L. More short of breath 04/29: Patient was moved out of the ICU yesterday. Currently breathing on BiPAP, FiO2 50%. Afebrile, tachypneic. COVID-19 positive. Continue remdesivir, steroids, Rocephin, azithromycin, and supportive care. Cussed with RN. 04/30: Patient seen in ICU. Still breathing on BiPAP, FiO2 50%. Some hypokalemia today, will treat with Kayexalate and Lasix, as this will also help with bilateral pleural effusions. Continue remdesivir, steroids, antibiotics. 05/01: Afebrile, tachypneic, breathing on Vapotherm 40 L. Potassium improving, BUN improving. Last dose of remdesivir today. Continue steroids and antibiotics. Charts and labs reviewed. 05/02: Patient seen in [place] [address] ICU. Completed remdesivir. Afebrile. Currently breathing on 40 L Vapotherm. Continue steroids antibiotics, supportive care. No acute events overnight, discussed with RN. 05/03: Patient seen in [place] [address] ICU. He is breathing on BiPAP, FiO2 60%. He denies any chest pain or nausea. He is completed remdesivir and azithromycin treatments. Continue Rocephin. Discussed with RN, no acute events overnight. Vitals Vitals Vital Signs Date Time Temp Pulse Resp B/P (MAP) Pulse Ox O2 Delivery O2 Flow Rate FiO2 05/09/20 09:21 96 Venturi Mask 15.0 05/09/20 07:00 98.0 57 31 133/83 (100) 98.0 Physical Exam Physical Exam Physical Exam General: mild distress Heart: Other (Tachycardic) Lungs: Crackles Abdomen: Normal bowel sounds, Soft, No masses Extremities: No clubbing, No cyanosis Skin: No rashes, No breakdown General: Alert, Cooperative, mild distress Heart: Regular rate, Other (Tachycardic) Lungs: Crackles Abdomen: Normal bowel sounds, Soft, No masses Extremities: No clubbing, No cyanosis Skin: No rashes, No breakdown Labs LABS DATE: 05/08/2020 3:26 AM INDICATION: Respiratory failure COMPARISON: 05/06/2020 05/04/2020 FINDINGS: Heart is mildly enlarged. Aorta is tortuous. Right upper extremity PICC tip projects over the right atrium. Bilateral parenchymal airspace opacities are mildly progressed. Trace bilateral pleural effusions. No pneumothorax. IMPRESSION: Bilateral parenchymal airspace opacities are mildly progressed Support lines and tubes as above. Electronically signed by: Donald Peters MD (05/08/2020 4:57 AM) [facility] [place] DICTATED and SIGNED BY: DONALD PETERS MD DATE: 05/08/20 [id number] SPEC #: [id number] FLORA: 04/27/20 STATUS: COMP REQ #: [id number] RECD: 04/27/[address]: ANTON ROBLES DO SOURCE: BLOOD ENTR: 04/27/20-1032 [facility] DR: MIRANDA JANSEN MD SPDC: ORDERED: BCULT Procedure Result BLOOD CULTURE Final NO GROWTH AFTER 5 DAYS EXAM: AP View of the chest DATE: 05/08/2020 3:26 AM INDICATION: Respiratory failure COMPARISON: 05/06/2020 05/04/2020 FINDINGS: Heart is mildly enlarged. Aorta is tortuous. Right upper extremity PICC tip projects over the right atrium. Bilateral parenchymal airspace opacities are mildly progressed. Trace bilateral pleural effusions. No pneumothorax. IMPRESSION: Bilateral parenchymal airspace opacities are mildly progressed Support lines and tubes as above. Electronically signed by: Donald Peters MD (05/08/2020 4:57 AM) [facility] [place] DICTATED and SIGNED BY: DONALD PETERS MD DATE: 05/08/20 [id number] Laboratory Tests Test 05/09/20 08:10 05/09/20 09:40 Glucose (Fingerstick) 108 mg/dL (70-99) Sodium Level 142 mmol/L (136-145) Potassium Level 4.0 mmol/L (3.5-5.1) Chloride Level 100 mmol/L (98-107) Carbon Dioxide Level 37 mmol/L (21-32) Anion Gap 5 (6-14) Blood Urea Nitrogen 15 mg/dL (8-26) Creatinine 0.7 mg/dL (0.7-1.3) Estimated GFR (Cockcroft-Gault) 112.1 Glucose Level 130 mg/dL (70-99) Calcium Level 9.2 mg/dL (8.5-10.1) Phosphorus Level 4.2 mg/dL (2.6-4.7) Magnesium Level 2.2 mg/dL (1.8-2.4) Assessment and Plan Assessmemt and Plan Problems Medical Problems: (1) Pneumonia due to COVID-19 virus Status: Acute (2) Respiratory failure Status: Acute Comment Review of Relevant I have reviewed the following items ruby (where applicable) has been applied. Labs Laboratory Tests Test 05/07/20 17:00 05/07/20 17:22 05/08/20 05:25 05/08/20 07:50 O2 Saturation 93 % (92-99) Arterial Blood pH 7.35 (7.35-7.45) Arterial Blood pCO2 at Patient Temp 71 mmHg (35-46) Arterial Blood pO2 at Patient Temp 66 mmHg (65-108) Arterial Blood HCO3 39 mmol/L (21-28) Arterial Blood Base Excess 10 mmol/L (-3-3) FiO2 50% Glucose (Fingerstick) 107 mg/dL (70-99) 110 mg/dL (70-99) Sodium Level 136 mmol/L (136-145) Potassium Level 4.0 mmol/L (3.5-5.1) Chloride Level 101 mmol/L (98-107) Carbon Dioxide Level 36 mmol/L (21-32) Anion Gap (6-14) Blood Urea Nitrogen 15 mg/dL (8-26) Creatinine 0.7 mg/dL (0.7-1.3) Estimated GFR (Cockcroft-Gault) 112.1 Glucose Level 127 mg/dL (70-99) Calcium Level 8.9 mg/dL (8.5-10.1) Phosphorus Level 2.8 mg/dL (2.6-4.7) Magnesium Level 2.4 mg/dL (1.8-2.4) Test 05/08/20 08:00 05/09/20 08:10 05/09/20 09:40 O2 Saturation 94 % (92-99) Arterial Blood pH 7.39 (7.35-7.45) Arterial Blood pCO2 at Patient Temp 58 mmHg (35-46) Arterial Blood pO2 at Patient Temp 70 mmHg (65-108) Arterial Blood HCO3 34 mmol/L (21-28) Arterial Blood Base Excess 7 mmol/L (-3-3) FiO2 50/bipap Glucose (Fingerstick) 108 mg/dL (70-99) Sodium Level 142 mmol/L (136-145) Potassium Level 4.0 mmol/L (3.5-5.1) Chloride Level 100 mmol/L (98-107) Carbon Dioxide Level 37 mmol/L (21-32) Anion Gap 5 (6-14) Blood Urea Nitrogen 15 mg/dL (8-26) Creatinine 0.7 mg/dL (0.7-1.3) Estimated GFR (Cockcroft-Gault) 112.1 Glucose Level 130 mg/dL (70-99) Calcium Level 9.2 mg/dL (8.5-10.1) Phosphorus Level 4.2 mg/dL (2.6-4.7) Magnesium Level 2.2 mg/dL (1.8-2.4) Laboratory Tests Test 05/09/20 08:10 05/09/20 09:40 Glucose (Fingerstick) 108 mg/dL (70-99) Sodium Level 142 mmol/L (136-145) Potassium Level 4.0 mmol/L (3.5-5.1) Chloride Level 100 mmol/L (98-107) Carbon Dioxide Level 37 mmol/L (21-32) Anion Gap 5 (6-14) Blood Urea Nitrogen 15 mg/dL (8-26) Creatinine 0.7 mg/dL (0.7-1.3) Estimated GFR (Cockcroft-Gault) 112.1 Glucose Level 130 mg/dL (70-99) Calcium Level 9.2 mg/dL (8.5-10.1) Phosphorus Level 4.2 mg/dL (2.6-4.7) Magnesium Level 2.2 mg/dL (1.8-2.4) Microbiology 04/27/20 Blood Culture - Final, Complete NO GROWTH AFTER 5 DAYS Medications Current Medications Acetaminophen/ Hydrocodone Bitart (Lortab 5/325) 1 tab 1X ONCE PO Last administered on 04/27/20at 11:50; Start 04/27/20 at 11:45; Stop 04/27/20 at 11:46; Status DC Methylprednisolone Sodium Succinate (SOLU-Medrol 125MG VIAL) 125 mg 1X ONCE IV Last administered on 04/27/20at 11:50; Start 04/27/20 at 12:00; Stop 04/27/20 at 12:01; Status DC Ceftriaxone Sodium (Rocephin) 1 gm 1X ONCE IVP Last administered on 04/27/20at 12:32; Start 04/27/20 at 12:15; Stop 04/27/20 at 12:16; Status DC Azithromycin 250 ml @ 250 mls/hr 1X ONCE IV Last administered on 04/27/20at 12:15; Start 04/27/20 at 12:15; Stop 04/27/20 at 13:39; Status DC Sodium Chloride 1,000 ml @ 1,000 mls/hr 1X ONCE IV Last administered on 04/27/20at 14:08; Start 04/27/20 at 14:15; Stop 04/27/20 at 15:14; Status DC Montelukast Sodium (Singulair) 10 mg HS PO Last administered on 05/08/20at 21:39; Start 04/27/20 at 21:00 Insulin Human Lispro (HumaLOG) 0-9 UNITS TIDWMEALS SQ ; Start 04/27/20 at 17:00 Dextrose (Dextrose 50%-Water Syringe) 12.5 gm PRN Q15MIN PRN IV SEE COMMENTS; Start 04/27/20 at 16:30 Enoxaparin Sodium (Lovenox 40mg Syringe) 40 mg Q12HR SQ Last administered on 05/09/20at 09:23; Start 04/27/20 at 17:00 Zinc Sulfate (Orazinc) 220 mg DAILY PO Last administered on 05/09/20at 09:23; Start 04/27/20 at 16:30 Thiamine Mononitrate (Vitamin B-1) 100 mg DAILY PO Last administered on 05/09/20at 09:23; Start 04/27/20 at 16:30 Ceftriaxone Sodium (Rocephin) 1 gm Q24H IVP Last administered on 05/04/20at 12:48; Start 04/28/20 at 13:00; Stop 05/05/20 at 12:15; Status DC Azithromycin 250 mg/Sodium Chloride 250 ml @ 250 mls/hr Q24H IV Last administered on 05/01/20at 12:25; Start 04/28/20 at 12:00; Stop 05/02/20 at 09:51; Status DC Amino Acids/ Glycerin/ Electrolytes 1,000 ml @ 50 mls/hr Q20H IV Last administered on 05/04/20at 18:38; Start 04/27/20 at 17:00; Stop 05/05/20 at 12:15; Status DC Dexamethasone (Decadron) 6 mg [id number] PO Last administered on 05/04/20at 08:26; Start 04/28/20 at 08:00; Stop 05/04/20 at 10:31; Status DC Remdesivir 200 mg/ Sodium Chloride 210 ml @ 210 mls/hr 1X ONCE IV Last administered on 04/27/20at 18:33; Start 04/27/20 at 18:00; Stop 04/27/20 at 18:59; Status DC Remdesivir 100 mg/ Sodium Chloride 230 ml @ 460 mls/hr Q24H IV Last administered on 05/01/20at 17:27; Start 04/28/20 at 18:00; Stop 05/01/20 at 18:29; Status DC Zolpidem Tartrate (Ambien) 5 mg PRN QHS PRN PO INSOMNIA Last administered on at 23:19; Start 04/27/20 at 21:15 Naproxen (Naprosyn) 500 mg PRN Q12HRS PRN PO MODERATE PAIN 4-6 Last administered on 05/07/20at 22:13; Start 04/27/20 at 22:00 Lorazepam (Ativan) 1 mg PRN Q6HRS PRN PO ANXIETY / AGITATION Last administered on 04/30/20at 12:23; Start 04/28/20 at 02:30 Lactobacillus Rhamnosus (Culturelle) 1 cap BID PO Last administered on 05/09/20 09:23; Start 04/28/20 at 21:00 Morphine Sulfate (Morphine Sulfate) 4 mg PRN Q4HRS PRN IV PAIN Last administered on 05/09/20 09:21; Start 04/28/20 at 11:30 Furosemide (Lasix) 40 mg 1X ONCE IVP Last administered on 04/29/20at 17:00; Start 04/29/20 at 17:00; Stop 04/29/20 at 17:01; Status DC Furosemide (Lasix) 40 mg 1X ONCE IVP Last administered on 04/30/20at 08:47; Start 04/30/20 at 08:30; Stop 04/30/20 at 08:34; Status DC Sodium Polystyrene Sulfonate (Kayexalate) 15 gm 1X ONCE PO Last administered on 04/30/20at 08:47; Start 04/30/20 at 08:30; Stop 04/30/20 at 08:34; Status DC Famotidine (Pepcid Vial) 20 mg BID IVP Last administered on 05/09/20 09:23; Start 05/01/20 at 09:00 Sterile Water (WATER for RESP) 1,000 ml CONT PRN INH VIA VAPOTHERM DEVICE Last administered on 05/05/20at 20:17; Start 05/01/20 at 08:45 Dexamethasone (Decadron) 4 mg DAILYWBKFT PO Last administered on 05/06/20 08:34; Start 05/05/20 at 08:00; Stop 05/07/20 at 08:30; Status DC Info (Tpn Per Pharmacy) 1 each PRN DAILY PRN MC SEE COMMENTS Last administered on 05/08/20at 12:39; Start 05/06/20 at 11:30 Sodium Chloride 90 meq/Potassium Chloride 25 meq/ Potassium Phosphate 13.6 mmol/Magnesium Sulfate 10 meq/ Calcium Gluconate 10 meq/ Multivitamins 5 ml/Zinc/Copper/ Manganese/ Selenium 1 ml/ Total Parenteral Nutrition/Amino Acids/Dextrose/ Fat Emulsion Intravenous 1,512 ml @ 63 mls/hr TPN CONT IV Last administered on 05/06/20at 21:21; Start 05/06/20 at 22:00; Stop 05/07/20 at 21:59; Status DC Dexamethasone Sodium Phosphate (Decadron) 4 mg [id number] IVP Last administered on 05/08/20at 09:14; Start 05/08/20 at 08:00; Stop 05/08/20 at 11:54; Status DC Sodium Chloride 90 meq/Potassium Chloride 25 meq/ Potassium Phosphate 13.6 mmol/Magnesium Sulfate 10 meq/ Calcium Gluconate 10 meq/ Multivitamins 5 ml/Zinc/Copper/ Manganese/ Selenium 1 ml/ Total Parenteral Nutrition/Amino Acids/Dextrose/ Fat Emulsion Intravenous 1,512 ml @ 63 mls/hr TPN CONT IV Last administered on 05/07/20at 21:49; Start 05/07/20 at 22:00; Stop 05/08/20 at 21:59; Status DC Sodium Chloride 90 meq/Potassium Chloride 25 meq/ Potassium Phosphate 13.6 mmol/Magnesium Sulfate 10 meq/ Calcium Gluconate 10 meq/ Multivitamins 5 ml/Z inc/Copper/ Manganese/ Selenium 1 ml/ Total Parenteral Nutrition/Amino Acids/Dextrose/ Fat Emulsion Intravenous 1,512 ml @ 63 mls/hr TPN CONT IV Last administered on 05/08/20at 21:40; Start 05/08/20 at 22:00; Stop 05/09/20 at 21:59 Active Scripts Active Reported Medrol (Methylprednisolone) 4 Mg Tab.ds.pk 1 Pkg PO UD Norvasc (Amlodipine Besylate) 5 Mg Tablet 1 Tab PO DAILY Proair Hfa Inhaler (Albuterol Sulfate) 8.5 Gm Hfa.aer.ad 1 Puff INH PRN Q6HRS PRN Advair 250-50 Diskus (Fluticasone/Salmeterol) 1 Each Disk.w.dev 1 Inh IH BID Singulair Tablet (Montelukast Sodium) 10 Mg Tablet 10 Mg PO HS Vitals/I & O Vital Sign - Last 24 Hours 05/08/20 05/08/20 05/08/20 05/08/20 11:00 11:38 11:48 12:00 Temp 97.4 97.4 Pulse 50 72 Resp 33 28 31 B/P (MAP) 96/64 (75) 114/69 (84) Pulse Ox 95 94 95 O2 Delivery BiPAP/CPAP Venturi Mask Venturi Mask Venturi Mask O2 Flow Rate 05/08/20 05/08/20 05/08/20 05/08/20 13:00 14:00 15:00 16:10 Pulse 64 75 69 Resp 33 33 28 B/P (MAP) 120/78 (92) 131/92 (105) 131/92 (105) Pulse Ox 95 95 95 O2 Delivery Venturi Mask Venturi Mask Venturi Mask Venturi Mask 05/08/20 05/08/20 05/08/20 05/08/20 19:00 20:00 20:00 21:00 Temp 98.0 98.0 Pulse 74 78 Resp 30 31 B/P (MAP) 146/85 (105) 151/95 (113) Pulse Ox 99 98 O2 Delivery Venturi Mask Venturi Mask Venturi Mask O2 Flow Rate 70.0 05/08/20 05/08/20 05/08/20 05/08/20 21:30 21:30 21:47 23:08 Temp 97.4 97.4 Pulse 92 Resp 38 B/P (MAP) 166/88 (114) Pulse Ox 98 93 O2 Delivery Venturi Mask Venturi Mask Venturi Mask Venturi Mask O2 Flow Rate 15.0 70.0 70.0 15.0 05/08/20 05/08/20 05/09/20 05/09/20 23:19 23:30 00:00 03:00 Pulse 55 Resp 26 B/P (MAP) 125/81 (96) Pulse Ox 93 96 97 O2 Delivery Venturi Mask BiPAP/CPAP BiPAP/CPAP O2 Flow Rate 15.0 15.0 05/09/20 05/09/20 05/09/20 05/09/20 04:00 04:00 07:00 08:27 Temp 98.0 98.0 Pulse 57 Resp 31 B/P (MAP) 133/83 (100) Pulse Ox 99 97 96 O2 Delivery BiPAP/CPAP Venturi Mask BiPAP/CPAP O2 Flow Rate 15.0 05/09/20 09:21 Pulse Ox 96 O2 Delivery Venturi Mask O2 Flow Rate 15.0 Intake and Output 05/08/20 05/08/20 05/09/20 15:00 23:00 07:00 Intake Total 540 ml 2103 ml 120 ml Output Total 1825 ml 1000 ml Balance 540 ml 278 ml -880 ml Justicifation of Admission Dx: Justifications for Admission: Justification of Admission Dx: Yes Comminuty Aquired Pneumonia: Hypoxemia Sepsis: Altered Mental Status DESIREE BAKER MD May 09, 2020 10:35
[2020-05-09 11:19] VITALS: BP 141/76
[2020-05-09 15:09] VITALS: BP 111/73
[2020-05-09 19:00] VITALS: BP 154/81
[2020-05-09] MEDS: ZOLPIDEM 5 MG TABLET. PO PRN (20:53)
[2020-05-09] MEDS: MONTELUKAST SODIUM 10 MG TABLET. PO SCH (20:55)
[2020-05-09 23:00] VITALS: BP 147/97
[2020-05-10 03:00] VITALS: BP 130/81
[2020-05-10 07:00] VITALS: BP 124/73
--- NOTE | 2020-05-10 07:56 | PDOC ---
PULMONARY PROGRESS NOTES DATE: 05/10/20 TIME: 07:56 Subjective on bipap 40% fio2, feels better, sob better has occ cough is weak Vitals Vital Signs Date Time Temp Pulse Resp B/P (MAP) Pulse Ox O2 Delivery O2 Flow Rate FiO2 05/10/20 04:00 97 BiPAP/CPAP 05/10/20 03:00 96.6 58 24 130/81 (97) 96.6 05/09/20 21:42 15.0 Comments visual exam preformed alert no distress RRR BIPAP no accessory muscle use no edema General: Alert, No acute distress Neuro Exam: Alert, Oriented Skin: No Rashes Labs Laboratory Tests Test 05/08/20 08:00 05/09/20 08:10 05/09/20 09:40 05/09/20 10:38 O2 Saturation 94 % (92-99) Arterial Blood pH 7.39 (7.35-7.45) Arterial Blood pCO2 at Patient Temp 58 mmHg (35-46) Arterial Blood pO2 at Patient Temp 70 mmHg (65-108) Arterial Blood HCO3 34 mmol/L (21-28) Arterial Blood Base Excess 7 mmol/L (-3-3) FiO2 50/bipap Glucose (Fingerstick) 108 mg/dL (70-99) 144 mg/dL (70-99) Sodium Level 142 mmol/L (136-145) Potassium Level 4.0 mmol/L (3.5-5.1) Chloride Level 100 mmol/L (98-107) Carbon Dioxide Level 37 mmol/L (21-32) Anion Gap 5 (6-14) Blood Urea Nitrogen 15 mg/dL (8-26) Creatinine 0.7 mg/dL (0.7-1.3) Estimated GFR (Cockcroft-Gault) 112.1 Glucose Level 130 mg/dL (70-99) Calcium Level 9.2 mg/dL (8.5-10.1) Phosphorus Level 4.2 mg/dL (2.6-4.7) Magnesium Level 2.2 mg/dL (1.8-2.4) Test 05/09/20 15:55 05/09/20 19:50 Glucose (Fingerstick) 121 mg/dL (70-99) 105 mg/dL (70-99) Laboratory Tests Test 05/09/20 08:10 05/09/20 09:40 05/09/20 10:38 05/09/20 15:55 Glucose (Fingerstick) 108 mg/dL (70-99) 144 mg/dL (70-99) 121 mg/dL (70-99) Sodium Level 142 mmol/L (136-145) Potassium Level 4.0 mmol/L (3.5-5.1) Chloride Level 100 mmol/L (98-107) Carbon Dioxide Level 37 mmol/L (21-32) Anion Gap 5 (6-14) Blood Urea Nitrogen 15 mg/dL (8-26) Creatinine 0.7 mg/dL (0.7-1.3) Estimated GFR (Cockcroft-Gault) 112.1 Glucose Level 130 mg/dL (70-99) Calcium Level 9.2 mg/dL (8.5-10.1) Phosphorus Level 4.2 mg/dL (2.6-4.7) Magnesium Level 2.2 mg/dL (1.8-2.4) Test 05/09/20 19:50 Glucose (Fingerstick) 105 mg/dL (70-99) Medications Active Scripts Medications Dose Route/Sig Max Daily Dose Days Date Category Medrol (Methylprednisolone) 4 Mg Tab.ds.pk 1 Pkg PO UD 06/28/15 Reported Norvasc (Amlodipine Besylate) 5 Mg Tablet 1 Tab PO DAILY 06/22/15 Reported Proair Hfa Inhaler (Albuterol Sulfate) 8.5 Gm Hfa.aer.ad 1 Puff INH PRN Q6HRS PRN 06/22/15 Reported Advair 250-50 Diskus (Fluticasone/Salmeterol) 1 Each Disk.w.dev 1 Inh IH BID 06/22/15 Reported Singulair Tablet (Montelukast Sodium) 10 Mg Tablet 10 Mg PO HS 01/15/14 Reported Comments CXR IMPRESSION: Bilateral parenchymal airspace opacities are mildly progressed Support lines and tubes as above. Impression . 1. Acute on chronic hypercapnic/ hypoxemic respiratory failure,ongoing 2. Abnormal x-ray compatible with pneumonia, COVID-19. 3. COVID-19 viral pneumonia. 4. COVID-19 exposure. 5. Hypotension,---resolved 6. Asthma, mild in nature. The patient uses p.r.n. albuterol and Singulair. 7. Obesity. 8. Acute kidney injury---resolved Plan . bipap prn during day, cont at night 02 titration to keep sat 90% try off bipap as tolerated Follow CXR/ABG, D/C steroids for full ten day course, Has completed full course of Remdesvir Covid positive HTN per PCP DVT/GI PPX D/W RN and RT EDWIN COLON MD May 10, 2020 07:56
[2020-05-10] MEDS: INSULIN LISPRO 300 UNITS/3 ML VIAL. SQ SCH ×3 (08:00→16:23)
[2020-05-10] MEDS: THIAMINE 100 MG TABLET. PO SCH (09:25)
[2020-05-10] MEDS: ZINC SULFATE 220 MG CAPSULE. PO SCH (09:25)
[2020-05-10] MEDS: FAMOTIDINE 20 MG/2 ML VIAL IVP SCH ×2 (09:25→21:40)
[2020-05-10] MEDS: LACTOBACILLUS RHAMNOSUS GG 1 CAPSULE. PO SCH ×2 (09:25→21:40)
[2020-05-10] MEDS: ENOXAPARIN 40 MG/0.4 ML SYRINGE. SQ SCH ×2 (09:26→21:40)
[2020-05-10] MEDS: MORPHINE SULFATE 4 MG/ML VIAL. IV PRN ×2 (09:36→23:26)
[2020-05-10 11:00] VITALS: BP 141/78
--- NOTE | 2020-05-10 11:05 | PDOC ---
PROGRESS NOTES Date of Service: DATE: 05/10/20 TIME: 11:04 Chief Complaint Chief Complaint IMPRESSION COVID-19 respiratory failure and hypercapnia and COPD and pneumonia Small bilateral pleural effusions Hypotension HTN Asthma Obesity DOROTHEA Sepsis Follow CXR/ABG, trial Venti mask w/ meals D/C steroids for full ten day course, Has completed full course of Remdesvir Covid positive ON 15 LITERS HF NC 1-16 n bipap 40% fio2, feels better, sob better 05-10 D/W RN History of Present Illness History of Present Illness 05/10/2019 Patient still on BiPAP AT HS Also on IV TPN Chart reviewed D/W RN CXR reviewed D/W RN 05/07/2020 Patient is on BiPAP Also getting IV TPN Chart reviewed 05/06/2020 Patient seen in the ICU Chart reviewed He is still on Vapotherm but pulmonary plans to discontinue it this morning and see how he does 05/05/2020 Patient seen and examined in the [place] [address] ICU He is currently on Vapotherm Appears weak but somewhat stable Chart reviewed Discussed with RN 05/04/2020 Patient seen and examined in the [place] [address] ICU He was just changed over to Vapotherm with 100% FiO2 On IV PPN Discussed with RN Chart reviewed He remains quite ill and very weak Mr Bertrand is a 69yo M w/ PMHX chronic persistent asthma, HTN, esophageal strictures, low testosterone, prior portal vein thrombus who presents to the ED at the insistence of his stepson with c/o difficulty breathing, cough, fever for the last 5 days. Patient was exposed to a [id number] who had COVID-19 infection last week. He went to his doctor today, his oxygen saturation was 70% on room air in the clinic. Therefore he was brought here by his son for evaluat ion. He has been having difficulty sleeping due to his shortness of breath. O2 saturations 62% on arrival improved with 15L facemask O2.. EKG was done at 1027, heart rate 70 beats per minute, sinus rhythm, no ST segment elevation Chest radiograph with multifocal interstitial and alveolar infiltrate with suspected partial left lower lobe consolidation as well as small bilateral pleu ral effusions. Labs with WBC 3.9, Hb 14.1, platelets 171, albumin 3.3, trop 0, BNP 1082, Na 138, K 4.3, BUN 49, Cr 1.7, glucose 115. Admitted for further care. 04/28: Overnight a bit confused. ABG 7.1 on 15 L. More short of breath 04/29: Patient was moved out of the ICU yesterday. Currently breathing on BiPAP, FiO2 50%. Afebrile, tachypneic. COVID-19 positive. Continue remdesivir, steroids, Rocephin, azithromycin, and supportive care. Cussed with RN. 04/30: Patient seen in ICU. Still breathing on BiPAP, FiO2 50%. Some hypokalemia today, will treat with Kayexalate and Lasix, as this will also help with bilateral pleural effusions. Continue remdesivir, steroids, antibiotics. 05/01: Afebrile, tachypneic, breathing on Vapotherm 40 L. Potassium improving, BUN improving. Last dose of remdesivir today. Continue steroids and antibiotics. Charts and labs reviewed. 05/02: Patient seen in [place] [address] ICU. Completed remdesivir. Afebrile. Currently breathing on 40 L Vapotherm. Continue steroids antibiotics, supportive care. No acute events overnight, discussed with RN. 05/03: Patient seen in [place] [address] ICU. He is breathing on BiPAP, FiO2 60%. He denies any chest pain or nausea. He is completed remdesivir and azithromycin treatments. Continue Rocephin. Discussed with RN, no acute events overnight. Vitals Vitals Vital Signs Date Time Temp Pulse Resp B/P (MAP) Pulse Ox O2 Delivery O2 Flow Rate FiO2 05/10/20 09:36 91 Nasal Cannula 4.0 05/10/20 07:00 96.8 60 26 124/73 (90) 96.8 Physical Exam Physical Exam Physical Exam General: mild distress Heart: Other (Tachycardic) Lungs: Crackles Abdomen: Normal bowel sounds, Soft, No masses Extremities: No clubbing, No cyanosis Skin: No rashes, No breakdown General: Alert, Oriented X3, Cooperative, No acute distress, mild distress Heart: Regular rate, Normal S1, Other (Tachycardic) Abdomen: Normal bowel sounds, Soft, No masses Extremities: No clubbing, No cyanosis Skin: No rashes, No breakdown Labs LABS Indication: Pneumonia. Comparison: 05/08/2020 Findings: Right-sided PICC tip terminates either at the superior cavoatrial junction or at the upper aspect of the right atrium. Similar degree of shallow inspiration from the prior. Asymmetric elevation of the right hemidiaphragm. Airspace opacities bilaterally, mainly at the apex on the right and mid to lower lung zones on the left. The infiltrates on the left are similar. There is the suggestion of slightly improved aeration of the right lung. No pneumothorax. Prominence of the cardiomediastinal silhouette Impression: 1. Persistence of bilateral airspace opacities, left more so than right, and with no significant change on the left but slightly improved aeration of the right lung. 2. PICC tip terminates in the region of the superior cavoatrial junction or u pper margin of the right atrium. Electronically signed by: MOISES VIERA MD (05/10/2020 1:38 PM) [facility] DICTATED and SIGNED BY: MOISES VIERA MD Laboratory Tests Test 05/09/20 15:55 05/09/20 19:50 05/10/20 07:33 Glucose (Fingerstick) 121 mg/dL (70-99) 105 mg/dL (70-99) 100 mg/dL (70-99) Assessment and Plan Assessmemt and Plan Problems Medical Problems: (1) Pneumonia due to COVID-19 virus Status: Acute (2) Respiratory failure Status: Acute Comment Review of Relevant I have reviewed the following items ruby (where applicable) has been applied. Labs Laboratory Tests Test 05/09/20 08:10 05/09/20 09:40 05/09/20 10:38 05/09/20 15:55 Glucose (Fingerstick) 108 mg/dL (70-99) 144 mg/dL (70-99) 121 mg/dL (70-99) Sodium Level 142 mmol/L (136-145) Potassium Level 4.0 mmol/L (3.5-5.1) Chloride Level 100 mmol/L (98-107) Carbon Dioxide Level 37 mmol/L (21-32) Anion Gap 5 (6-14) Blood Urea Nitrogen 15 mg/dL (8-26) Creatinine 0.7 mg/dL (0.7-1.3) Estimated GFR (Cockcroft-Gault) 112.1 Glucose Level 130 mg/dL (70-99) Calcium Level 9.2 mg/dL (8.5-10.1) Phosphorus Level 4.2 mg/dL (2.6-4.7) Magnesium Level 2.2 mg/dL (1.8-2.4) Test 05/09/20 19:50 05/10/20 07:33 Glucose (Fingerstick) 105 mg/dL (70-99) 100 mg/dL (70-99) Laboratory Tests Test 05/09/20 15:55 05/09/20 19:50 05/10/20 07:33 Glucose (Fingerstick) 121 mg/dL (70-99) 105 mg/dL (70-99) 100 mg/dL (70-99) Microbiology 04/27/20 Blood Culture - Final, Complete NO GROWTH AFTER 5 DAYS Medications Current Medications Acetaminophen/ Hydrocodone Bitart (Lortab 5/325) 1 tab 1X ONCE PO Last administered on 04/27/20at 11:50; Start 04/27/20 at 11:45; Stop 04/27/20 at 11:46; Status DC Methylprednisolone Sodium Succinate (SOLU-Medrol 125MG VIAL) 125 mg 1X ONCE IV Last administered on 04/27/20at 11:50; Start 04/27/20 at 12:00; Stop 04/27/20 at 12:01; Status DC Ceftriaxone Sodium (Rocephin) 1 gm 1X ONCE IVP Last administered on 04/27/20at 12:32; Start 04/27/20 at 12:15; Stop 04/27/20 at 12:16; Status DC Azithromycin 250 ml @ 250 mls/hr 1X ONCE IV Last administered on 04/27/20at 12:15; Start 04/27/20 at 12:15; Stop 04/27/20 at 13:39; Status DC Sodium Chloride 1,000 ml @ 1,000 mls/hr 1X ONCE IV Last administered on 04/27/20at 14:08; Start 04/27/20 at 14:15; Stop 04/27/20 at 15:14; Status DC Montelukast Sodium (Singulair) 10 mg HS PO Last administered on 05/09/20at 20:55; Start 04/27/20 at 21:00 Insulin Human Lispro (HumaLOG) 0-9 UNITS TIDWMEALS SQ ; Start 04/27/20 at 17:00 Dextrose (Dextrose 50%-Water Syringe) 12.5 gm PRN Q15MIN PRN IV SEE COMMENTS; Start 04/27/20 at 16:30 Enoxaparin Sodium (Lovenox 40mg Syringe) 40 mg Q12HR SQ Last administered on 05/10/20at 09:26; Start 04/27/20 at 17:00 Zinc Sulfate (Orazinc) 220 mg DAILY PO Last administered on 05/10/20at 09:25; Start 04/27/20 at 16:30 Thiamine Mononitrate (Vitamin B-1) 100 mg DAILY PO Last administered on 05/10/20at 09:25; Start 04/27/20 at 16:30 Ceftriaxone Sodium (Rocephin) 1 gm Q24H IVP Last administered on 05/04/20at 12:48; Start 04/28/20 at 13:00; Stop 05/05/20 at 12:15; Status DC Azithromycin 250 mg/Sodium Chloride 250 ml @ 250 mls/hr Q24H IV Last administered on 05/01/20at 12:25; Start 04/28/20 at 12:00; Stop 05/02/20 at 09:51; Status DC Amino Acids/ Glycerin/ Electrolytes 1,000 ml @ 50 mls/hr Q20H IV Last administered on 05/04/20at 18:38; Start 04/27/20 at 17:00; Stop 05/05/20 at 12:15; Status DC Dexamethasone (Decadron) 6 mg DAILYWBKFT PO Last administered on 05/04/20at 08:26; Start 04/28/20 at 08:00; Stop 05/04/20 at 10:31; Status DC Remdesivir 200 mg/ Sodium Chloride 210 ml @ 210 mls/hr 1X ONCE IV Last administered on 04/27/20at 18:33; Start 04/27/20 at 18:00; Stop 04/27/20 at 18:59; Status DC Remdesivir 100 mg/ Sodium Chloride 230 ml @ 460 mls/hr Q24H IV Last administered on 05/01/20at 17:27; Start 04/28/20 at 18:00; Stop 05/01/20 at 18:29; Status DC Zolpidem Tartrate (Ambien) 5 mg PRN QHS PRN PO INSOMNIA Last administered on 05/09/20at 20:53; Start 04/27/20 at 21:15 Naproxen (Naprosyn) 500 mg PRN Q12HRS PRN PO MODERATE PAIN 4-6 Last administered on 05/07/20at 22:13; Start 04/27/20 at 22:00 Lorazepam (Ativan) 1 mg PRN Q6HRS PRN PO ANXIETY / AGITATION Last administered on 04/30/20at 12:23; Start 04/28/20 at 02:30 Lactobacillus Rhamnosus (Culturelle) 1 cap BID PO Last administered on 05/10/20at 09:25; Start 04/28/20 at 21:00 Morphine Sulfate (Morphine Sulfate) 4 mg PRN Q4HRS PRN IV PAIN Last administered on 05/10/20at 09:36; Start 04/28/20 at 11:30 Furosemide (Lasix) 40 mg 1X ONCE IVP Last administered on 04/29/20at 17:00; Start 04/29/20 at 17:00; Stop 04/29/20 at 17:01; Status DC Furosemide (Lasix) 40 mg 1X ONCE IVP Last administered on 04/30/20at 08:47; Start 04/30/20 at 08:30; Stop 04/30/20 at 08:34; Status DC Sodium Polystyrene Sulfonate (Kayexalate) 15 gm 1X ONCE PO Last administered on 04/30/20 08:47; Start 04/30/20 at 08:30; Stop 04/30/20 at 08:34; Status DC Famotidine (Pepcid Vial) 20 mg BID IVP Last administered on 05/10/20at 09:25; Start 05/01/20 at 09:00 Sterile Water (WATER for RESP) 1,000 ml CONT PRN INH VIA VAPOTHERM DEVICE Last administered on 05/05/20at 20:17; Start 05/01/20 at 08:45 Dexamethasone (Decadron) 4 mg DAILYWBKFT PO Last administered on 05/06/20 08:34; Start 05/05/20 at 08:00; Stop 05/07/20 at 08:30; Status DC Info (Tpn Per Pharmacy) 1 each PRN DAILY PRN MC SEE COMMENTS Last administered on 05/08/20at 12:39; Start 05/06/20 at 11:30; Stop 05/09/20 at 13:34; Status DC Sodium Chloride 90 meq/Potassium Chloride 25 meq/ Potassium Phosphate 13.6 mmol/Magnesium Sulfate 10 meq/ Calcium Gluconate 10 meq/ Multivitamins 5 ml/Zinc/Copper/ Manganese/ Selenium 1 ml/ Total Parenteral Nutrition/Amino Acids/Dextrose/ Fat Emulsion Intravenous 1,512 ml @ 63 mls/hr TPN CONT IV Last administered on 05/06/20at 21:21; Start 05/06/20 at 22:00; Stop 05/07/20 at 21:59; Status DC Dexamethasone Sodium Phosphate (Decadron) 4 mg DAILYWBKFT IVP Last administered on 05/08/20at 09:14; Start 05/08/20 at 08:00; Stop 05/08/20 at 11:54; Status DC Sodium Chloride 90 meq/Potassium Chloride 25 meq/ Potassium Phosphate 13.6 mmol/Magnesium Sulfate 10 meq/ Calcium Gluconate 10 meq/ Multivitamins 5 ml/Zinc/Copper/ Manganese/ Selenium 1 ml/ Total Parenteral Nutrition/Amino Acids/Dextrose/ Fat Emulsion Intravenous 1,512 ml @ 63 mls/hr TPN CONT IV Last administered on 05/07/20at 21:49; Start 05/07/20 at 22:00; Stop 05/08/20 at 21:59; Status DC Sodium Chloride 90 meq/Potassium Chloride 25 meq/ Potassium Phosphate 13.6 mmol/Magnesium Sulfate 10 meq/ Calcium Gluconate 10 meq/ Multivitamins 5 ml/Zin c/Copper/ Manganese/ Selenium 1 ml/ Total Parenteral Nutrition/Amino Acids/Dextrose/ Fat Emulsion Intravenous 1,512 ml @ 63 mls/hr TPN CONT IV Last administered on 05/08/20at 21:40; Start 05/08/20 at 22:00; Stop 05/09/20 at 21:59; Status DC Active Scripts Active Reported Medrol (Methylprednisolone) 4 Mg Tab.ds.pk 1 Pkg PO UD Norvasc (Amlodipine Besylate) 5 Mg Tablet 1 Tab PO DAILY Proair Hfa Inhaler (Albuterol Sulfate) 8.5 Gm Hfa.aer.ad 1 Puff INH PRN Q6HRS PRN Advair 250-50 Diskus (Fluticasone/Salmeterol) 1 Each Disk.w.dev 1 Inh IH BID Singulair Tablet (Montelukast Sodium) 10 Mg Tablet 10 Mg PO HS Vitals/I & O Vital Sign - Last 24 Hours 05/09/20 05/09/20 05/09/20 05/09/20 11:19 11:32 15:09 19:00 Temp 98.0 98.0 96.8 98.0 98.0 96.8 Pulse 70 75 62 Resp 31 26 24 B/P (MAP) 141/76 (97) 111/73 (86) 154/81 (105) Pulse Ox 97 97 96 93 O2 Delivery Venturi Mask Venturi Mask Venturi Mask Venturi Mask O2 Flow Rate 15.0 05/09/20 05/09/20 05/09/20 05/09/20 20:27 20:27 20:53 21:42 Resp 18 19 Pulse Ox 96 96 O2 Delivery Venturi Mask Venturi Mask Venturi Mask O2 Flow Rate 15.0 15.0 15.0 15.0 05/09/20 05/09/20 05/10/20 05/10/20 23:00 23:00 03:00 04:00 Temp 96.6 96.6 96.6 96.6 Pulse 71 58 Resp 26 24 B/P (MAP) 147/97 (114) 130/81 (97) Pulse Ox 96 91 94 97 O2 Delivery BiPAP/CPAP Venturi Mask BiPAP/CPAP BiPAP/CPAP 05/10/20 05/10/20 07:00 09:36 Temp 96.8 96.8 Pulse 60 Resp 26 B/P (MAP) 124/73 (90) Pulse Ox 92 91 O2 Delivery BiPAP/CPAP Nasal Cannula O2 Flow Rate 4.0 Intake and Output 05/09/20 05/09/20 05/10/20 15:00 23:00 07:00 Intake Total 400 ml 220 ml Output Total 600 ml 225 ml Balance 400 ml -600 ml -5 ml Justicifation of Admission Dx: Justifications for Admission: Justification of Admission Dx: Yes Comminuty Aquired Pneumonia: Hypoxemia Sepsis: Altered Mental Status DESIREE BAKER MD May 10, 2020 11:05
--- NOTE | 2020-05-10 13:40 | RAD ---
Study: XR CHEST 1V Indication: Pneumonia. Comparison: 05/08/2020 Findings: Right-sided PICC tip terminates either at the superior cavoatrial junction or at the upper aspect of the right atrium. Similar degree of shallow inspiration from the prior. Asymmetric elevation of the right hemidiaphragm . Airspace opacities bilaterally, mainly at the apex on the right and mid to lower lung zones on the left. The infiltrates on the left are similar. There is the suggestion of slightly improved aeration of the right lung. No pneumothorax. Prominence of the cardiomediastinal silhouette Impression: 1. Persistence of bilateral airspace opacities, left more so than right, and with no significant mcdowell ge on the left but slightly improved aeration of the right lung. 2. PICC tip terminates in the region of the superior cavoatrial junction or upper margin of the right atrium. Electronically signed by: MOISES VIERA MD (05/10/2020 1:38 PM) [facility]
[2020-05-10 15:00] VITALS: BP 116/67
[2020-05-10 19:00] VITALS: BP 145/82
[2020-05-10] MEDS: MONTELUKAST SODIUM 10 MG TABLET. PO SCH (21:40)
[2020-05-10 23:00] VITALS: BP 154/86
[2020-05-10] MEDS: ZOLPIDEM 5 MG TABLET. PO PRN (23:26)
[2020-05-11 03:00] VITALS: BP 154/99
[2020-05-11 07:00] VITALS: BP 141/87
[2020-05-11] MEDS: INSULIN LISPRO 300 UNITS/3 ML VIAL. SQ SCH ×3 (08:00→16:43)
[2020-05-11] MEDS: ZINC SULFATE 220 MG CAPSULE. PO SCH (08:42)
[2020-05-11] MEDS: LACTOBACILLUS RHAMNOSUS GG 1 CAPSULE. PO SCH ×2 (08:42→21:45)
[2020-05-11] MEDS: ENOXAPARIN 40 MG/0.4 ML SYRINGE. SQ SCH ×2 (08:42→21:44)
[2020-05-11] MEDS: FAMOTIDINE 20 MG/2 ML VIAL IVP SCH ×2 (08:42→21:45)
[2020-05-11] MEDS: THIAMINE 100 MG TABLET. PO SCH (08:42)
[2020-05-11] MEDS: NAPROXEN 500 MG TABLET PO PRN (10:21)
[2020-05-11 11:00] VITALS: BP 157/95
[2020-05-11] MEDS: MORPHINE SULFATE 4 MG/ML VIAL. IV PRN (11:12)
[2020-05-11 14:52] LABS: BASO % 1 % (0-3); EOS # 0.2 x10^3/uL (0.0-0.7); EOS % 3 % (0-3); HEMATOCRIT 38.8 % (39.0-53.0); LYMPH # 0.8 x10^3/uL (1.0-4.8); LYMPH % 18 % (24-48); MEAN CORPUSCULAR HEMOGLOBIN 31 pg (25-35); MEAN CORPUSCULAR HGB CONC 33 g/dL (31-37); MEAN CORPUSCULAR VOLUME 91 fL (79-100); MONO # 0.4 x10^3/uL (0.0-1.1); MONO % 9 % (0-9); NEUT # 3.1 x10^3/uL (1.8-7.7); NEUT % 68 % (31-73); PLATELET COUNT 190 x10^3/uL (140-400); RED BLOOD COUNT 4.25 x10^6/uL (4.30-5.70); RED CELL DISTRIBUTION WIDTH 14.6 % (11.5-14.5); WHITE BLOOD COUNT 4.5 x10^3/uL (4.0-11.0)
[2020-05-11 15:00] VITALS: BP 143/64
[2020-05-11 15:02] LABS: BLOOD UREA NITROGEN 15 mg/dL (8-26); CALCIUM 8.8 mg/dL (8.5-10.1); CARBON DIOXIDE 40 mmol/L (21-32); CHLORIDE 101 mmol/L (98-107); CREATININE 0.9 mg/dL (0.7-1.3); GFR 83.9; GLUCOSE 103 mg/dL (70-99); POTASSIUM 4.2 mmol/L (3.5-5.1); SODIUM 140 mmol/L (136-145)
--- NOTE | 2020-05-11 16:53 | PDOC ---
PULMONARY PROGRESS NOTES DATE: 05/11/20 TIME: 16:50 Subjective Patient currently on nonrebreather. Not more short of air. Vitals Vital Signs Date Time Temp Pulse Resp B/P (MAP) Pulse Ox O2 Delivery O2 Flow Rate FiO2 05/11/20 15:00 97.7 57 28 143/64 (90) 97 Nasal Cannula 3.0 97.7 ROS: No Nausea, No Chest Pain, No Abdominal Pain, No Increase Cough General: Alert, No acute distress Lungs: Crackles Cardiovascular: S1, S2 Abdomen: Soft Neuro Exam: Alert, Oriented Extremities: No Edema Skin: No Rashes Labs Laboratory Tests Test 05/09/20 19:50 05/10/20 07:33 05/10/20 10:31 05/10/20 16:04 Glucose (Fingerstick) 105 mg/dL (70-99) 100 mg/dL (70-99) 105 mg/dL (70-99) 110 mg/dL (70-99) Test 05/10/20 20:16 05/11/20 08:00 05/11/20 11:40 05/11/20 14:45 Glucose (Fingerstick) 99 mg/dL (70-99) 105 mg/dL (70-99) 106 mg/dL (70-99) White Blood Count 4.5 x10^3/uL (4.0-11.0) Red Blood Count 4.25 x10^6/uL (4.30-5.70) Hemoglobin 13.0 g/dL (13.0-17.5) Hematocrit 38.8 % (39.0-53.0) Mean Corpuscular Volume 91 fL (79-100) Mean Corpuscular Hemoglobin 31 pg (25-35) Mean Corpuscular Hemoglobin Concent 33 g/dL (31-37) Red Cell Distribution Width 14.6 % (11.5-14.5) Platelet Count 190 x10^3/uL (140-400) Neutrophils (%) (Auto) 68 % (31-73) Lymphocytes (%) (Auto) 18 % (24-48) Monocytes (%) (Auto) 9 % (0-9) Eosinophils (%) (Auto) 3 % (0-3) Basophils (%) (Auto) 1 % (0-3) Neutrophils # (Auto) 3.1 x10^3/uL (1.8-7.7) Lymphocytes # (Auto) 0.8 x10^3/uL (1.0-4.8) Monocytes # (Auto) 0.4 x10^3/uL (0.0-1.1) Eosinophils # (Auto) 0.2 x10^3/uL (0.0-0.7) Basophils # (Auto) 0.0 x10^3/uL (0.0-0.2) Sodium Level 140 mmol/L (136-145) Potassium Level 4.2 mmol/L (3.5-5.1) Chloride Level 101 mmol/L (98-107) Carbon Dioxide Level 40 mmol/L (21-32) Anion Gap (6-14) Blood Urea Nitrogen 15 mg/dL (8-26) Creatinine 0.9 mg/dL (0.7-1.3) Estimated GFR (Cockcroft-Gault) 83.9 Glucose Level 103 mg/dL (70-99) Calcium Level 8.8 mg/dL (8.5-10.1) Test 05/11/20 16:31 Glucose (Fingerstick) 92 mg/dL (70-99) Laboratory Tests Test 05/10/20 20:16 05/11/20 08:00 05/11/20 11:40 05/11/20 14:45 Glucose (Fingerstick) 99 mg/dL (70-99) 105 mg/dL (70-99) 106 mg/dL (70-99) White Blood Count 4.5 x10^3/uL (4.0-11.0) Red Blood Count 4.25 x10^6/uL (4.30-5.70) Hemoglobin 13.0 g/dL (13.0-17.5) Hematocrit 38.8 % (39.0-53.0) Mean Corpuscular Volume 91 fL (79-100) Mean Corpuscular Hemoglobin 31 pg (25-35) Mean Corpuscular Hemoglobin Concent 33 g/dL (31-37) Red Cell Distribution Width 14.6 % (11.5-14.5) Platelet Count 190 x10^3/uL (140-400) Neutrophils (%) (Auto) 68 % (31-73) Lymphocytes (%) (Auto) 18 % (24-48) Monocytes (%) (Auto) 9 % (0-9) Eosinophils (%) (Auto) 3 % (0-3) Basophils (%) (Auto) 1 % (0-3) Neutrophils # (Auto) 3.1 x10^3/uL (1.8-7.7) Lymphocytes # (Auto) 0.8 x10^3/uL (1.0-4.8) Monocytes # (Auto) 0.4 x10^3/uL (0.0-1.1) Eosinophils # (Auto) 0.2 x10^3/uL (0.0-0.7) Basophils # (Auto) 0.0 x10^3/uL (0.0-0.2) Sodium Level 140 mmol/L (136-145) Potassium Level 4.2 mmol/L (3.5-5.1) Chloride Level 101 mmol/L (98-107) Carbon Dioxide Level 40 mmol/L (21-32) Anion Gap (6-14) Blood Urea Nitrogen 15 mg/dL (8-26) Creatinine 0.9 mg/dL (0.7-1.3) Estimated GFR (Cockcroft-Gault) 83.9 Glucose Level 103 mg/dL (70-99) Calcium Level 8.8 mg/dL (8.5-10.1) Test 05/11/20 16:31 Glucose (Fingerstick) 92 mg/dL (70-99) Medications Active Scripts Medications Dose Route/Sig Max Daily Dose Days Date Category Medrol (Methylprednisolone) 4 Mg Tab.ds.pk 1 Pkg PO UD 06/28/15 Reported Norvasc (Amlodipine Besylate) 5 Mg Tablet 1 Tab PO DAILY 06/22/15 Reported Proair Hfa Inhaler (Albuterol Sulfate) 8.5 Gm Hfa.aer.ad 1 Puff INH PRN Q6HRS PRN 06/22/15 Reported Advair 250-50 Diskus (Fluticasone/Salmeterol) 1 Each Disk.w.dev 1 Inh IH BID 06/22/15 Reported Singulair Tablet (Montelukast Sodium) 10 Mg Tablet 10 Mg PO HS 01/15/14 Reported Comments CXR IMPRESSION: Bilateral parenchymal airspace opacities are mildly progressed Support lines and tubes as above. Impression . 1. Acute on chronic hypercapnic/ hypoxemic respiratory failure 2. Abnormal x-ray compatible with pneumonia, COVID-19. 3. COVID-19 viral pneumonia. 4. COPD 5. Hypotension,- 6. Asthma, mild in nature. The patient uses p.r.n. albuterol and Singulair. 7. Obesity. 8. Acute kidney injury Plan . We will continue as needed BiPAP Finish steroid Has completed a course of remdesivir Patient doing well with oxygen at this time 02 titration to keep sat 90% try off bipap as tolerated Follow CXR/ABG, Covid positive HTN per PCP DVT/GI PPX D/W RN and RT ASA LE MD May 11, 2020 16:53
--- NOTE | 2020-05-11 17:30 | PDOC ---
[employer] PROGRESS NOTE Date of Service DOS: DATE: 05/11/20 TIME: 17:29 Chief Complaint Chief Complaint IMPRESSION COVID-19 respiratory failure and hypercapnia and COPD and pneumonia Small bilateral pleural effusions Hypotension HTN Asthma Obesity DOROTHEA Sepsis Follow CXR/ABG, trial Venti mask w/ meals D/C steroids for full ten day course, Has completed full course of Remdesvir Covid positive ON 15 LITERS HF NC 1-16 n bipap 40% fio2, feels better, sob better 05-10 D/W RN History of Present Illness History of Present Illness 05/11/2020 Patient seen and evaluated. Currently breathing on 3 L nasal cannula. A febrile. He has finished remdesivir. We will continue supportive care. Charts and labs reviewed. Discussed with RN. 05/10/2019 Patient still on BiPAP AT HS Also on IV TPN Chart reviewed D/W RN CXR reviewed D/W RN 05/07/2020 Patient is on BiPAP Also getting IV TPN Chart reviewed 05/06/2020 Patient seen in the ICU Chart reviewed He is still on Vapotherm but pulmonary plans to discontinue it this morning and see how he does 05/05/2020 [facility] He is currently on Vapotherm Appears weak but somewhat stable Chart reviewed Discussed with RN 05/04/2020 [facility] He was just changed over to Vapotherm with 100% FiO2 On IV PPN Discussed with RN Chart reviewed He remains quite ill and very weak Mr Bertrand is a 69yo M w/ PMHX chronic persistent asthma, HTN, esophageal strictures, low testosterone, prior portal vein thrombus who presents to the ED at the insistence of his stepson with c/o difficulty breathing, cough, fever for the last 5 days. Patient was exposed to a yglwzcls-[id number] who had COVID-19 infection last week. He went to his doctor today, his oxygen saturation was 70% on room air in the clinic. Therefore he was brought here by his son for evaluation. He has been having difficulty sleeping due to his shortness of breath. O2 saturations 62% on arrival improved with 15L facemask O2.. EKG was done at 1027, heart rate 70 beats per minute, sinus rhythm, no ST segment elevation Chest radiograph with multifocal interstitial and alveolar infiltrate with suspected partial left lower lobe consolidation as well as small bilateral pleural effusions. Labs with WBC 3.9, Hb 14.1, platelets 171, albumin 3.3, trop 0, BNP 1082, Na 138, K 4.3, BUN 49, Cr 1.7, glucose 115. Admitted for further care. 04/28: Overnight a bit confused. ABG 7.1 on 15 L. More short of breath 04/29: Patient was moved out of the ICU yesterday. Currently breathing on BiPAP, FiO2 50%. Afebrile, tachypneic. COVID-19 positive. Continue remdesivir, steroids, Rocephin, azithromycin, and supportive care. Cussed with RN. 04/30: Patient seen in ICU. Still breathing on BiPAP, FiO2 50%. Some hypokalemia today, will treat with Kayexalate and Lasix, as this will also help with bilateral pleural effusions. Continue remdesivir, steroids, antibiotics. 05/01: Afebrile, tachypneic, breathing on Vapotherm 40 L. Potassium improving, BUN improving. Last dose of remdesivir today. Continue steroids and antibiotics. Charts and labs reviewed. 05/02: Patient seen in [place] [address] ICU. Completed remdesivir. Afebrile. Currently breathing on 40 L Vapotherm. Continue steroids antibiotics, supportive care. No acute events overnight, discussed with RN. 05/03: Patient seen in [place] [address] ICU. He is breathing on BiPAP, FiO2 60%. He denies any chest pain or nausea. He is completed remdesivir and azithromycin treatments. Continue Rocephin. Discussed with RN, no acute events overnight. Vitals/I&O Vitals/I&O: Vital Signs Date Time Temp Pulse Resp B/P (MAP) Pulse Ox O2 Delivery O2 Flow Rate FiO2 05/11/20 15:00 97.7 57 28 143/64 (90) 97 Nasal Cannula 3.0 97.7 I & O 05/10/20 05/10/20 05/11/20 15:00 23:00 07:00 Intake Total 480 ml Output Total 650 ml Balance -170 ml Physical Exam Physical Exam: Physical Exam General: mild distress Heart: Other (Tachycardic) Lungs: Crackles Abdomen: Normal bowel sounds, Soft, No masses Extremities: No clubbing, No cyanosis Skin: No rashes, No breakdown General: Cooperative, No acute distress Heart: Regular rate, Normal S1, Other (Tachycardic) Lungs: Crackles Abdomen: Normal bowel sounds, Soft, No masses Extremities: No clubbing, No cyanosis Skin: No rashes, No breakdown Labs Labs: Laboratory Tests Test 05/10/20 20:16 05/11/20 08:00 05/11/20 11:40 05/11/20 14:45 Glucose (Fingerstick) 99 mg/dL (70-99) 105 mg/dL (70-99) 106 mg/dL (70-99) White Blood Count 4.5 x10^3/uL (4.0-11.0) Red Blood Count 4.25 x10^6/uL (4.30-5.70) Hemoglobin 13.0 g/dL (13.0-17.5) Hematocrit 38.8 % (39.0-53.0) Mean Corpuscular Volume 91 fL (79-100) Mean Corpuscular Hemoglobin 31 pg (25-35) Mean Corpuscular Hemoglobin Concent 33 g/dL (31-37) Red Cell Distribution Width 14.6 % (11.5-14.5) Platelet Count 190 x10^3/uL (140-400) Neutrophils (%) (Auto) 68 % (31-73) Lymphocytes (%) (Auto) 18 % (24-48) Monocytes (%) (Auto) 9 % (0-9) Eosinophils (%) (Auto) 3 % (0-3) Basophils (%) (Auto) 1 % (0-3) Neutrophils # (Auto) 3.1 x10^3/uL (1.8-7.7) Lymphocytes # (Auto) 0.8 x10^3/uL (1.0-4.8) Monocytes # (Auto) 0.4 x10^3/uL (0.0-1.1) Eosinophils # (Auto) 0.2 x10^3/uL (0.0-0.7) Basophils # (Auto) 0.0 x10^3/uL (0.0-0.2) Sodium Level 140 mmol/L (136-145) Potassium Level 4.2 mmol/L (3.5-5.1) Chloride Level 101 mmol/L (98-107) Carbon Dioxide Level 40 mmol/L (21-32) Anion Gap (6-14) Blood Urea Nitrogen 15 mg/dL (8-26) Creatinine 0.9 mg/dL (0.7-1.3) Estimated GFR (Cockcroft-Gault) 83.9 Glucose Level 103 mg/dL (70-99) Calcium Level 8.8 mg/dL (8.5-10.1) Test 05/11/20 16:31 Glucose (Fingerstick) 92 mg/dL (70-99) Assessment and Plan Assessmemt and Plan Problems Medical Problems: (1) Pneumonia due to COVID-19 virus Status: Acute (2) Respiratory failure Status: Acute Comment Review of Relevant I have reviewed the following items ruby (where applicable) has been applied. Justifications for Admission Other Justification CAIT GORE MD May 11, 2020 17:30
[2020-05-11 19:00] VITALS: BP 156/96
[2020-05-11] MEDS: HYDROcodone/APAP 5/325MG 1 TAB TABLET PO PRN (21:45)
[2020-05-11] MEDS: MONTELUKAST SODIUM 10 MG TABLET. PO SCH (21:45)
[2020-05-11] MEDS: ZOLPIDEM 5 MG TABLET. PO PRN (21:45)
[2020-05-11 23:00] VITALS: BP 151/93
[2020-05-12] MEDS: NAPROXEN 500 MG TABLET PO PRN (01:46)
[2020-05-12 03:00] VITALS: BP 149/89
[2020-05-12] MEDS: HYDROcodone/APAP 5/325MG 1 TAB TABLET PO PRN ×2 (04:36→11:50)
[2020-05-12 07:19] VITALS: BP 137/80
[2020-05-12] MEDS: INSULIN LISPRO 300 UNITS/3 ML VIAL. SQ SCH ×2 (08:00→12:00)
--- NOTE | 2020-05-12 08:31 | PDOC ---
PULMONARY PROGRESS NOTES DATE: 05/12/20 TIME: 08:29 Subjective Patient currently on Venti-MAsk states he is feeling ok No increased cough or SOB Vitals Vital Signs Date Time Temp Pulse Resp B/P (MAP) Pulse Ox O2 Delivery O2 Flow Rate FiO2 05/12/20 07:19 96.9 66 18 137/80 (99) 96 Nasal Cannula 3.0 96.9 ROS: No Nausea, No Chest Pain, No Abdominal Pain, No Increase Cough General: Alert, No acute distress Lungs: Clear Cardiovascular: S1, S2 Abdomen: Soft Neuro Exam: Alert, Oriented Extremities: No Edema Skin: Warm, Dry Labs Laboratory Tests Test 05/10/20 10:31 05/10/20 16:04 05/10/20 20:16 05/11/20 08:00 Glucose (Fingerstick) 105 mg/dL (70-99) 110 mg/dL (70-99) 99 mg/dL (70-99) 105 mg/dL (70-99) Test 05/11/20 11:40 05/11/20 14:45 05/11/20 16:31 05/11/20 20:30 Glucose (Fingerstick) 106 mg/dL (70-99) 92 mg/dL (70-99) 110 mg/dL (70-99) White Blood Count 4.5 x10^3/uL (4.0-11.0) Red Blood Count 4.25 x10^6/uL (4.30-5.70) Hemoglobin 13.0 g/dL (13.0-17.5) Hematocrit 38.8 % (39.0-53.0) Mean Corpuscular Volume 91 fL (79-100) Mean Corpuscular Hemoglobin 31 pg (25-35) Mean Corpuscular Hemoglobin Concent 33 g/dL (31-37) Red Cell Distribution Width 14.6 % (11.5-14.5) Platelet Count 190 x10^3/uL (140-400) Neutrophils (%) (Auto) 68 % (31-73) Lymphocytes (%) (Auto) 18 % (24-48) Monocytes (%) (Auto) 9 % (0-9) Eosinophils (%) (Auto) 3 % (0-3) Basophils (%) (Auto) 1 % (0-3) Neutrophils # (Auto) 3.1 x10^3/uL (1.8-7.7) Lymphocytes # (Auto) 0.8 x10^3/uL (1.0-4.8) Monocytes # (Auto) 0.4 x10^3/uL (0.0-1.1) Eosinophils # (Auto) 0.2 x10^3/uL (0.0-0.7) Basophils # (Auto) 0.0 x10^3/uL (0.0-0.2) Sodium Level 140 mmol/L (136-145) Potassium Level 4.2 mmol/L (3.5-5.1) Chloride Level 101 mmol/L (98-107) Carbon Dioxide Level 40 mmol/L (21-32) Anion Gap (6-14) Blood Urea Nitrogen 15 mg/dL (8-26) Creatinine 0.9 mg/dL (0.7-1.3) Estimated GFR (Cockcroft-Gault) 83.9 Glucose Level 103 mg/dL (70-99) Calcium Level 8.8 mg/dL (8.5-10.1) Laboratory Tests Test 05/11/20 11:40 05/11/20 14:45 05/11/20 16:31 05/11/20 20:30 Glucose (Fingerstick) 106 mg/dL (70-99) 92 mg/dL (70-99) 110 mg/dL (70-99) White Blood Count 4.5 x10^3/uL (4.0-11.0) Red Blood Count 4.25 x10^6/uL (4.30-5.70) Hemoglobin 13.0 g/dL (13.0-17.5) Hematocrit 38.8 % (39.0-53.0) Mean Corpuscular Volume 91 fL (79-100) Mean Corpuscular Hemoglobin 31 pg (25-35) Mean Corpuscular Hemoglobin Concent 33 g/dL (31-37) Red Cell Distribution Width 14.6 % (11.5-14.5) Platelet Count 190 x10^3/uL (140-400) Neutrophils (%) (Auto) 68 % (31-73) Lymphocytes (%) (Auto) 18 % (24-48) Monocytes (%) (Auto) 9 % (0-9) Eosinophils (%) (Auto) 3 % (0-3) Basophils (%) (Auto) 1 % (0-3) Neutrophils # (Auto) 3.1 x10^3/uL (1.8-7.7) Lymphocytes # (Auto) 0.8 x10^3/uL (1.0-4.8) Monocytes # (Auto) 0.4 x10^3/uL (0.0-1.1) Eosinophils # (Auto) 0.2 x10^3/uL (0.0-0.7) Basophils # (Auto) 0.0 x10^3/uL (0.0-0.2) Sodium Level 140 mmol/L (136-145) Potassium Level 4.2 mmol/L (3.5-5.1) Chloride Level 101 mmol/L (98-107) Carbon Dioxide Level 40 mmol/L (21-32) Anion Gap (6-14) Blood Urea Nitrogen 15 mg/dL (8-26) Creatinine 0.9 mg/dL (0.7-1.3) Estimated GFR (Cockcroft-Gault) 83.9 Glucose Level 103 mg/dL (70-99) Calcium Level 8.8 mg/dL (8.5-10.1) Medications Active Scripts Medications Dose Route/Sig Max Daily Dose Days Date Category Medrol (Methylprednisolone) 4 Mg Tab.ds.pk 1 Pkg PO UD 06/28/15 Reported Norvasc (Amlodipine Besylate) 5 Mg Tablet 1 Tab PO DAILY 06/22/15 Reported Proair Hfa Inhaler (Albuterol Sulfate) 8.5 Gm Hfa.aer.ad 1 Puff INH PRN Q6HRS PRN 06/22/15 Reported Advair 250-50 Diskus (Fluticasone/Salmeterol) 1 Each Disk.w.dev 1 Inh IH BID 06/22/15 Reported Singulair Tablet (Montelukast Sodium) 10 Mg Tablet 10 Mg PO HS 01/15/14 Reported Comments CXR IMPRESSION: Bilateral parenchymal airspace opacities are mildly progressed Support lines and tubes as above. Impression . 1. Acute on chronic hypercapnic/ hypoxemic respiratory failure=-- ongoing 2. Abnormal x-ray compatible with pneumonia, COVID-19. 3. COVID-19 viral pneumonia. 4. COPD 5. Hypotension,- 6. Asthma, mild in nature. The patient uses p.r.n. albuterol and Singulair. 7. Obesity. 8. Acute kidney injury Plan . continue supplemental oxygen to keep sats above 92%, currently on venti-mask , attempt N/C Pt. has completed full course of steroids Has completed a course of remdesivir Covid positive HTN per PCP DVT/GI PPX social work for D/C planning-- rehab vs. SNU D/W RN and RT ANGELY LOWRY MD May 12, 2020 08:31
--- NOTE | 2020-05-12 10:55 | PDOC ---
[employer] PROGRESS NOTE Date of Service DOS: DATE: 05/12/20 TIME: 10:53 Chief Complaint Chief Complaint IMPRESSION COVID-19 respiratory failure and hypercapnia and COPD and pneumonia Small bilateral pleural effusions Hypotension HTN Asthma Obesity DOROTHEA Sepsis Follow CXR/ABG, trial Venti mask w/ meals D/C steroids for full ten day course, Has completed full course of Remdesvir Covid positive ON 15 LITERS HF NC 1-16 n bipap 40% fio2, feels better, sob better 05-10 D/W RN History of Present Illness History of Present Illness 05/12/2020 Patient seen and evaluated bedside. Currently breathing on 3 L nasal cannula. He finished his course of remdesivir, off antibiotics. No acute events overnight. Afebrile. Patient has no complaints or concerns today. He was accepted to LTAC. Will discharge to LTAC to continue to wean off oxygen. Greater than 30 minutes was spent managing discharge this patient. 05/11/2020 Patient seen and evaluated. Currently breathing on 3 L nasal cannula. Afeb rile. He has finished remdesivir. We will continue supportive care. Charts and labs reviewed. Discussed with RN. 05/10/2019 Patient still on BiPAP AT HS Also on IV TPN Chart reviewed D/W RN CXR reviewed D/W RN 05/07/2020 Patient is on BiPAP Also getting IV TPN Chart reviewed 05/06/2020 Patient seen in the ICU Chart reviewed He is still on Vapotherm but pulmonary plans to discontinue it this morning and see how he does 05/05/2020 Patient seen and examined in the COVID-19 ICU He is currently on Vapotherm Appears weak but somewhat stable Chart reviewed Discussed with RN 05/04/2020 Patient seen and examined in the COVID-19 ICU He was just changed over to Vapotherm with 100% FiO2 On IV PPN Discussed with RN Chart reviewed He remains quite ill and very weak Mr Bertrand is a 69yo M w/ PMHX chronic persistent asthma, HTN, esophageal strictures, low testosterone, prior portal vein thrombus who presents to the ED at the insistence of his stepson with c/o difficulty breathing, cough, fever for the last 5 days. Patient was exposed to a [id number] who had COVID-19 infection last week. He went to his doctor today, his oxygen saturation was 70% on room air in the clinic. Therefore he was brought here by his son for evaluation. He has been having difficulty sleeping due to his shortness of breath. O2 saturations 62% on arrival improved with 15L facemask O2.. EKG was done at 1027, heart rate 70 beats per minute, sinus rhythm, no ST segment elevation Chest radiograph with multifocal interstitial and alveolar infiltrate with suspected partial left lower lobe consolidation as well as small bilateral pleural effusions. Labs with WBC 3.9, Hb 14.1, platelets 171, albumin 3.3, trop 0, BNP 1082, Na 138, K 4.3, BUN 49, Cr 1.7, glucose 115. Admitted for further care. 04/28: Overnight a bit confused. ABG 7.1 on 15 L. More short of breath 04/29: Patient was moved out of the ICU yesterday. Currently breathing on BiPAP, FiO2 50%. Afebrile, tachypneic. COVID-19 positive. Continue remdesivir, steroids, Rocephin, azithromycin, and supportive care. Cussed with RN. 04/30: Patient seen in ICU. Still breathing on BiPAP, FiO2 50%. Some hypokalemia today, will treat with Kayexalate and Lasix, as this will also help with bilateral pleural effusions. Continue remdesivir, steroids, antibiotics. 05/01: Afebrile, tachypneic, breathing on Vapotherm 40 L. Potassium improving, BUN improving. Last dose of remdesivir today. Continue steroids and antibiotics. Charts and labs reviewed. 05/02: Patient seen in [place] [address] ICU. Completed remdesivir. Afebrile. Currently breathing on 40 L Vapotherm. Continue steroids antibiotics, supportive care. No acute events overnight, discussed with RN. 05/03: Patient seen in [place] [address] ICU. He is breathing on BiPAP, FiO2 60%. He denies any chest pain or nausea. He is completed remdesivir and azithromycin treatments. Continue Rocephin. Discussed with RN, no acute events overnight. Vitals/I&O Vitals/I&O: Vital Signs Date Time Temp Pulse Resp B/P (MAP) Pulse Ox O2 Delivery O2 Flow Rate FiO2 1/19/21 07:19 96.9 66 18 137/80 (99) 96 Nasal Cannula 3.0 96.9 I & O 05/11/20 05/11/20 05/12/20 15:00 23:00 07:00 Intake Total 300 ml 450 ml 200 ml Output Total 850 ml 160 ml 550 ml Balance -550 ml 290 ml -350 ml Physical Exam Physical Exam: Physical Exam General: mild distress Heart: Other (Tachycardic) Lungs: Crackles Abdomen: Normal bowel sounds, Soft, No masses Extremities: No clubbing, No cyanosis Skin: No rashes, No breakdown General: Cooperative, No acute distress Heart: Regular rate, Normal S1, Other (Tachycardic) Lungs: Clear Abdomen: Normal bowel sounds, Soft, No masses Extremities: No clubbing, No cyanosis Skin: No rashes, No breakdown Labs Labs: Laboratory Tests Test 05/11/20 11:40 05/11/20 14:45 05/11/20 16:31 05/11/20 20:30 Glucose (Fingerstick) 106 mg/dL (70-99) 92 mg/dL (70-99) 110 mg/dL (70-99) White Blood Count 4.5 x10^3/uL (4.0-11.0) Red Blood Count 4.25 x10^6/uL (4.30-5.70) Hemoglobin 13.0 g/dL (13.0-17.5) Hematocrit 38.8 % (39.0-53.0) Mean Corpuscular Volume 91 fL (79-100) Mean Corpuscular Hemoglobin 31 pg (25-35) Mean Corpuscular Hemoglobin Concent 33 g/dL (31-37) Red Cell Distribution Width 14.6 % (11.5-14.5) Platelet Count 190 x10^3/uL (140-400) Neutrophils (%) (Auto) 68 % (31-73) Lymphocytes (%) (Auto) 18 % (24-48) Monocytes (%) (Auto) 9 % (0-9) Eosinophils (%) (Auto) 3 % (0-3) Basophils (%) (Auto) 1 % (0-3) Neutrophils # (Auto) 3.1 x10^3/uL (1.8-7.7) Lymphocytes # (Auto) 0.8 x10^3/uL (1.0-4.8) Monocytes # (Auto) 0.4 x10^3/uL (0.0-1.1) Eosinophils # (Auto) 0.2 x10^3/uL (0.0-0.7) Basophils # (Auto) 0.0 x10^3/uL (0.0-0.2) Sodium Level 140 mmol/L (136-145) Potassium Level 4.2 mmol/L (3.5-5.1) Chloride Level 101 mmol/L (98-107) Carbon Dioxide Level 40 mmol/L (21-32) Anion Gap (6-14) Blood Urea Nitrogen 15 mg/dL (8-26) Creatinine 0.9 mg/dL (0.7-1.3) Estimated GFR (Cockcroft-Gault) 83.9 Glucose Level 103 mg/dL (70-99) Calcium Level 8.8 mg/dL (8.5-10.1) Assessment and Plan Assessmemt and Plan Problems Medical Problems: (1) Pneumonia due to COVID-19 virus Status: Acute (2) Respiratory failure Status: Acute Comment Review of Relevant I have reviewed the following items ruby (where applicable) has been applied. Medications: Current Medications Medications (Trade) Dose Ordered Sig/Alondra Route PRN Reason Start Time Stop Time Status Last Admin Dose Admin Acetaminophen/ Hydrocodone Bitart (Lortab 5/325) 1 tab PRN Q6HRS PRN PO MODERATE PAIN 4-6 05/11/20 20:45 05/12/20 04:36 Justifications for Admission Other Justification CAIT GORE MD May 12, 2020 10:55
--- NOTE | 2020-05-12 11:04 | SNU/HH DC ---
DISCHARGE ORDERS DISCHARGE INFORMATION: DISCHARGE DATE: May 12, 2020 FINAL DIAGNOSIS Problems Medical Problems: (1) Pneumonia due to COVID-19 virus Status: Acute (2) Respiratory failure Status: Acute CONDITION ON DISCHARGE: Stable CODE STATUS: Code Status: Full LTAC: ADMIT TO LTAC: Yes POST DISCHARGE ORDERS: ACTIVITY ORDERS: Activity as tolerated DIET AFTER DISCHARGE: Cardiac WOUND/INCISION CARE: Other, see below (Routine pressure ulcer management) TREATMENT/EQUIPMENT ORDERS: Physical Therapy For: Evalulation/Treatment DISCHARGE MEDICATIONS: Home Meds Reported Medications Methylprednisolone (MEDROL) 4 Mg Tab.ds.pk, 1 PKG PO UD, #1 PKG 06/28/15 Amlodipine Besylate (NORVASC) 5 Mg Tablet, 1 TAB PO DAILY, #30 TAB 5 Refills 06/22/15 Albuterol Sulfate (PROAIR HFA INHALER) 8.5 Gm Hfa.aer.ad, 1 PUFF INH PRN Q6HRS PRN for SHORTNESS OF BREATH, INHALER 0 Refills 06/22/15 Fluticasone/Salmeterol (ADVAIR 250-50 DISKUS) 1 Each Disk.w.dev, 1 INH IH BID, INHALER 06/22/15 Montelukast Sodium (SINGULAIR TABLET ) 10 Mg Tablet, 10 MG PO HS for FOR ASTHMA, #30 TAB 0 Refills 01/15/14 CAIT GORE MD May 12, 2020 11:03
--- NOTE | 2020-05-12 11:06 | PDOC3 ---
Discharge Summary Visit Information Date of Admission: Apr 27, 2020 Date of Discharge: May 12, 2020 Final Diagnosis Problems Medical Problems: (1) Pneumonia due to COVID-19 virus Status: Acute (2) Respiratory failure Status: Acute Brief Hospital Course Allergies Allergies Coded Allergies Type Severity Reaction Last Updated Verified Sulfa (Sulfonamide Antibiotics) Allergy Intermediate 08/15/14 Yes Vital Signs Vital Signs Date Time Temp Pulse Resp B/P (MAP) Pulse Ox O2 Delivery O2 Flow Rate FiO2 05/12/20 07:19 96.9 66 18 137/80 (99) 96 Nasal Cannula 3.0 96.9 Lab Results Laboratory Tests Test 05/10/20 16:04 05/10/20 20:16 05/11/20 08:00 05/11/20 11:40 Glucose (Fingerstick) 110 mg/dL (70-99) 99 mg/dL (70-99) 105 mg/dL (70-99) 106 mg/dL (70-99) Test 05/11/20 14:45 05/11/20 16:31 05/11/20 20:30 White Blood Count 4.5 x10^3/uL (4.0-11.0) Red Blood Count 4.25 x10^6/uL (4.30-5.70) Hemoglobin 13.0 g/dL (13.0-17.5) Hematocrit 38.8 % (39.0-53.0) Mean Corpuscular Volume 91 fL (79-100) Mean Corpuscular Hemoglobin 31 pg (25-35) Mean Corpuscular Hemoglobin Concent 33 g/dL (31-37) Red Cell Distribution Width 14.6 % (11.5-14.5) Platelet Count 190 x10^3/uL (140-400) Neutrophils (%) (Auto) 68 % (31-73) Lymphocytes (%) (Auto) 18 % (24-48) Monocytes (%) (Auto) 9 % (0-9) Eosinophils (%) (Auto) 3 % (0-3) Basophils (%) (Auto) 1 % (0-3) Neutrophils # (Auto) 3.1 x10^3/uL (1.8-7.7) Lymphocytes # (Auto) 0.8 x10^3/uL (1.0-4.8) Monocytes # (Auto) 0.4 x10^3/uL (0.0-1.1) Eosinophils # (Auto) 0.2 x10^3/uL (0.0-0.7) Basophils # (Auto) 0.0 x10^3/uL (0.0-0.2) Sodium Level 140 mmol/L (136-145) Potassium Level 4.2 mmol/L (3.5-5.1) Chloride Level 101 mmol/L (98-107) Carbon Dioxide Level 40 mmol/L (21-32) Anion Gap (6-14) Blood Urea Nitrogen 15 mg/dL (8-26) Creatinine 0.9 mg/dL (0.7-1.3) Estimated GFR (Cockcroft-Gault) 83.9 Glucose Level 103 mg/dL (70-99) Calcium Level 8.8 mg/dL (8.5-10.1) Glucose (Fingerstick) 92 mg/dL (70-99) 110 mg/dL (70-99) Laboratory Tests Test 05/11/20 11:40 05/11/20 14:45 05/11/20 16:31 05/11/20 20:30 Glucose (Fingerstick) 106 mg/dL (70-99) 92 mg/dL (70-99) 110 mg/dL (70-99) White Blood Count 4.5 x10^3/uL (4.0-11.0) Red Blood Count 4.25 x10^6/uL (4.30-5.70) Hemoglobin 13.0 g/dL (13.0-17.5) Hematocrit 38.8 % (39.0-53.0) Mean Corpuscular Volume 91 fL (79-100) Mean Corpuscular Hemoglobin 31 pg (25-35) Mean Corpuscular Hemoglobin Concent 33 g/dL (31-37) Red Cell Distribution Width 14.6 % (11.5-14.5) Platelet Count 190 x10^3/uL (140-400) Neutrophils (%) (Auto) 68 % (31-73) Lymphocytes (%) (Auto) 18 % (24-48) Monocytes (%) (Auto) 9 % (0-9) Eosinophils (%) (Auto) 3 % (0-3) Basophils (%) (Auto) 1 % (0-3) Neutrophils # (Auto) 3.1 x10^3/uL (1.8-7.7) Lymphocytes # (Auto) 0.8 x10^3/uL (1.0-4.8) Monocytes # (Auto) 0.4 x10^3/uL (0.0-1.1) Eosinophils # (Auto) 0.2 x10^3/uL (0.0-0.7) Basophils # (Auto) 0.0 x10^3/uL (0.0-0.2) Sodium Level 140 mmol/L (136-145) Potassium Level 4.2 mmol/L (3.5-5.1) Chloride Level 101 mmol/L (98-107) Carbon Dioxide Level 40 mmol/L (21-32) Anion Gap (6-14) Blood Urea Nitrogen 15 mg/dL (8-26) Creatinine 0.9 mg/dL (0.7-1.3) Estimated GFR (Cockcroft-Gault) 83.9 Glucose Level 103 mg/dL (70-99) Calcium Level 8.8 mg/dL (8.5-10.1) Brief Hospital Course Mr. Pagan is a 69 old male who presented with acute respiratory failure with hypoxia, COVID-19 pneumonia. Consultations placed to pulmonology. He was treated appropriately with IV antibiotics, IV steroids. He finished a course of remdesivir. During his hospital course he was placed in the ICU on BiPAP. Patient was gradually weaned down to 3 L nasal cannula, to the point where he would be able to continue weaning himself off oxygen at long-term acute care facility. Discharge Information Condition at Discharge: Improved Disposition/Orders: D/C to Another Facility Scheduled Amlodipine Besylate (Norvasc) 5 Mg Tablet, 1 TAB PO DAILY, #30 Ref 5 (Reported) Entered as Reported by: LOS HOLLY on 06/22/15 1000 Fluticasone/Salmeterol (Advair 250-50 Diskus) 1 Each Disk.w.dev, 1 INH IH BID, (Reported) Entered as Reported by: BROOKS SAUER on 06/22/15 0626 Methylprednisolone (Medrol) 4 Mg Tab.ds.pk, 1 PKG PO UD, #1 (Reported) Entered as Reported by: Angelina Foreman on 06/28/15 1318 Montelukast Sodium (Singulair Tablet ) 10 Mg Tablet, 10 MG PO HS for FOR ASTHMA, #30 Ref 0 (Reported) Entered as Reported by: SHANAE BARBOSA on 01/15/14 1200 Last Action: Continued on 04/27/20 1626 by LIDIA GUEVARA MD Scheduled PRN Albuterol Sulfate (Proair Hfa Inhaler) 8.5 Gm Hfa.aer.ad, 1 PUFF INH PRN Q6HRS PRN for SHORTNESS OF BREATH, Ref 0 (Reported) Entered as Reported by: BROOKS SAUER on 06/22/15 0626 Justicifation of Admission Dx: Justifications for Admission: Justification of Admission Dx: Yes Comminuty Aquired Pneumonia: Hypoxemia Sepsis: Altered Mental Status CAIT GORE MD May 12, 2020 11:06
[2020-05-12 11:10] VITALS: BP 158/85
[2020-05-12] MEDS: ENOXAPARIN 40 MG/0.4 ML SYRINGE. SQ SCH (11:49)
[2020-05-12] MEDS: ZINC SULFATE 220 MG CAPSULE. PO SCH (11:49)
[2020-05-12] MEDS: LACTOBACILLUS RHAMNOSUS GG 1 CAPSULE. PO SCH (11:49)
[2020-05-12] MEDS: THIAMINE 100 MG TABLET. PO SCH (11:49)
--- NOTE | 2020-05-12 13:50 | NUR ---
Pt discharged to [facility]. PICC line remains in place on discharge. Report called to nurse at facility. Wheelchair transport provided.
--- NOTE | 2020-05-12 16:31 | NUR ---
Wound Care Pt discharged prior to arrival of WC team.
[2020-05-12] MEDS ORDERED: FAMOTIDINE 20 MG TABLET. PO SCH (21:00)
== END 2020-05-12 13:50 | DRG 871 ==
LOC: ER 10:09 → ED HOLD 11:46 → ER 13:01 → 6 SOUTH 18:01 → 1 WEST ICU 04-28 07:50 → 6 SOUTH 05-08 21:00
PROVIDERS: ADMIT Internal Medicine; ATTEND Internal Medicine
PROC: XW033E5 Introduction of Remdesivir Anti-infective into Peripheral Vein, Percutaneous Approach, New Technology Group 5 (ICD-10-PCS; principal; 2020-04-27)
PROC: 5A09457 Assistance with Respiratory Ventilation, 24-96 Consecutive Hours, Continuous Positive Airway Pressure (ICD-10-PCS; 2020-04-28)
PROC: 5A09357 Assistance with Respiratory Ventilation, Less than 24 Consecutive Hours, Continuous Positive Airway Pressure (ICD-10-PCS; 2020-05-01)
PROC: 5A09457 Assistance with Respiratory Ventilation, 24-96 Consecutive Hours, Continuous Positive Airway Pressure (ICD-10-PCS; 2020-05-02)
PROC: 5A09357 Assistance with Respiratory Ventilation, Less than 24 Consecutive Hours, Continuous Positive Airway Pressure (ICD-10-PCS; 2020-05-04)
PROC: 5A0935A Assistance with Respiratory Ventilation, Less than 24 Consecutive Hours, High Flow/Velocity Cannula (ICD-10-PCS; 2020-05-04)
PROC: 5A09357 Assistance with Respiratory Ventilation, Less than 24 Consecutive Hours, Continuous Positive Airway Pressure (ICD-10-PCS; 2020-05-05)
PROC: 5A0935A Assistance with Respiratory Ventilation, Less than 24 Consecutive Hours, High Flow/Velocity Cannula (ICD-10-PCS; 2020-05-05)
PROC: 02HV33Z Insertion of Infusion Device into Superior Vena Cava, Percutaneous Approach (ICD-10-PCS; 2020-05-06)
PROC: 5A09357 Assistance with Respiratory Ventilation, Less than 24 Consecutive Hours, Continuous Positive Airway Pressure (ICD-10-PCS; 2020-05-06)
PROC: 5A09457 Assistance with Respiratory Ventilation, 24-96 Consecutive Hours, Continuous Positive Airway Pressure (ICD-10-PCS; 2020-05-07)
PROC: 5A09357 Assistance with Respiratory Ventilation, Less than 24 Consecutive Hours, Continuous Positive Airway Pressure (ICD-10-PCS; 2020-05-09)
PROC: 5A09357 Assistance with Respiratory Ventilation, Less than 24 Consecutive Hours, Continuous Positive Airway Pressure (ICD-10-PCS; 2020-05-10)
DX: A41.9 Sepsis, unspecified organism (principal); U07.1 COVID-19; N17.0 Acute kidney failure with tubular necrosis; J96.01 Acute respiratory failure with hypoxia; J12.82 Pneumonia due to coronavirus disease 2019; J96.02 Acute respiratory failure with hypercapnia; J15.6 Pneumonia due to other Gram-negative bacteria; J44.0 Chronic obstructive pulmonary disease with (acute) lower respiratory infection; J91.8 Pleural effusion in other conditions classified elsewhere; E66.9 Obesity, unspecified; I10 Essential (primary) hypertension; D72.810 Lymphocytopenia; J45.40 Moderate persistent asthma, uncomplicated; E87.5 Hyperkalemia; Z79.899 Other long term (current) drug therapy; Z82.3 Family history of stroke; Z82.49 Family history of ischemic heart disease and other diseases of the circulatory system; Z85.828 Personal history of other malignant neoplasm of skin; Z86.718 Personal history of other venous thrombosis and embolism; Z87.891 Personal history of nicotine dependence; Z88.2 Allergy status to sulfonamides; Z68.29 Body mass index [BMI] 29.0-29.9, adult
CPT/HCPCS: 36415; 36569; 36600; 51798; 71045; 80048; 80053; 81001; 82805; 82962; 83036; 83605; 83735; 83880; 84100; 84478; 84484; 85025; 85027; 85379; 85610; 87040; 94660; 94760; 96365; 96375; 99285; J0456; J0610; J0696; J1100; J1650; J1940; J2270; J2930; J3475; J3480; J3490; J7030; J7050; U0003; 97530-GP; G0378

== ENCOUNTER → 2020-08-11 | Outpatient (CLI) | payer MEDICARE ==
--- NOTE | 2020-08-11 12:24 | RAD ---
EXAM: CHEST 2 VIEWS. HISTORY: Pneumonia, COVID-19. COMPARISON: 05/10/2020. FINDINGS: Frontal and lateral views of the chest are obtained. The right hemidiaphragm is moderately elevated. Previously noted bilateral infiltrates have resolved. There is no pneumothorax or pleural effusion. The heart is not enlarged. IMPRESSION: 1. Resolution of previously noted infiltrates. Moderate elevation of the right hemidiaphragm. Electronically signed by: Jeimy Hanna MD (08/11/2020 12:21 PM) [id number]
== END ==
LOC: RAD 11:07
PROVIDERS: ATTEND Internal Medicine Critical Care Medicine
DX: U07.1 COVID-19 (principal)
CPT/HCPCS: 71046

== ENCOUNTER → 2020-08-27 | Outpatient (CLI) | payer MEDICARE ==
--- NOTE | 2020-08-27 13:04 | KCIC ---
MR LUMBAR SPINE WO [id number] Date: 08/27/2020 11:00 AM Indication: RIGHT LUMBAR RADICULOPATHY. Chronic right leg weakness and numbness. Comparison: None. Technique: Multi-planar multi-weighted magnetic resonance imaging of the lumbar spine was performed w ithout intravenous contrast using the standard lumbar spine protocol. FINDINGS: 17 mm anterolisthesis at L5-S1 due to bilateral L5 pars defects. No acute fracture. The intervertebra l discs are normal. Trace degenerative endplate edema at T11-12 and T12-L1. Fatty degenerative endpla te changes at L1-2 and L5-S1. The conus terminates at a normal level. No abnormal signal is seen within the visualized distal spina l cord. No clumping of intrathecal nerve roots. Partially visualized right renal cyst. T12-L1: No disc bulge. No facet arthropathy. No significant spinal stenosis or neural foraminal narro wing. L1-L2: No disc bulge. No facet arthropathy. No significant spinal stenosis or neural foraminal narrow ing. L2-L3: No disc bulge. No facet arthropathy. No significant spinal stenosis or neural foraminal narrow ing. L3-L4: Disc bulge. Mild facet arthropathy. No significant spinal stenosis or neural foraminal narrowi ng. L4-L5: Disc bulge. Mild facet arthropathy. No significant spinal stenosis or neural foraminal narrowi ng. L5-S1: Anterolisthesis with uncovering of the disc. Disc bulge with right foraminal/far lateral protr usion. Severe right neural foraminal narrowing with compression of the exiting L5 nerve root. Moderat e left neural foraminal narrowing. No spinal canal stenosis. IMPRESSION: 1. Severe narrowing of the right L5-S1 neural foramen with compression of the exiting L5 nerve root. Correlate for radiculopathy. 2. Grade 2 anterolisthesis at L5-S1 due to bilateral L5 pars defects. Electronically signed by: Jason Paredes MD (08/27/2020 1:02 PM) [facility]
== END ==
LOC: KCIC MRI 10:47
PROVIDERS: ATTEND Orthopaedic Surgery
DX: M47.26 Other spondylosis with radiculopathy, lumbar region (principal); M48.07 Spinal stenosis, lumbosacral region; M43.17 Spondylolisthesis, lumbosacral region
CPT/HCPCS: 72148